=== PATIENT | female | born 1980 | race Caucasian/White ===

== ENCOUNTER 2016-11-11 21:21 | Emergency (ER) | payer MEDICARE, MEDICAID ==
[~2016-11-11] VITALS: Ht 154.9 cm; Wt 89.4 kg
[~2016-11-11 21:21] MED LIST: AMLO10TA2 PO; INSU100V13 SQ; INSU100V28 SQ; LOSA100T44 PO; LOVA10TA2 PO; LURA120T PO; TRAZ100T18 PO
[2016-11-11 21:22] VITALS: Ht 154.9 cm; Wt 89.4 kg
--- OUTSIDE RECORDS SUMMARY | 2016-11-11 21:25 | XMS REPORT | Continuity of Care Document ---
Author Author [facility] Organization [facility] Address Unknown Phone Unavailable Care Team Providers Care Manager Integrity Name Role Phone Jaylyn Young Primary Care Physician [phone] Source Comments Some departments are not documenting in the electronic medical record. If you do not see the information that you expected, contact Release of Information in the Health Information Management department at [phone] for further assistance in locating additional records.[facility] Active Allergies and Adverse Reactions Allergen Noted Date Severity Reactions Comments Azithromycin 03/26/2016 Low UNKNOWN Current Medications Not on file Active Problems Not on file Social History Tobacco Use Types Packs/Day Years Used Date Never Assessed Last Filed Vital Signs Vital Sign Reading Time Taken Blood Pressure 98/68 03/07/2016 1:18 PM CDT Pulse 90 03/07/2016 1:18 PM CDT Temperature 36.6 C (97.9 F) 03/07/2016 1:18 PM CDT Respiratory Rate 16 03/07/2016 1:18 PM CDT Height 1.575 m (5' 2") 03/07/2016 1:18 PM CDT Weight 82.01 kg (180 lb 12.8 oz) 03/07/2016 1:18 PM CDT Body Mass Index 33.06 03/07/2016 1:18 PM CDT Oxygen Saturation 98% 03/07/2016 1:18 PM CDT Plan of Care Health Maintenance Due Date Last Done Comments Physical (Comprehensive) 1987 Exam Pertussis Vaccine 1991 Tetanus Vaccine 1997 Dilated Eye Exam 1998 Foot Exam 1998 Microalbumin 1998 Pneumonia Vaccine (Dm) 1998 Cervical Cancer Screening 2001 Hba1c 02/21/2015 08/24/2014 Influenza Vaccine 04/12/2017 Results from Last 3 Months Not on file
--- OUTSIDE RECORDS SUMMARY | 2016-11-11 21:25 | XMS REPORT ---
Author Jaylyn Persaud [employer] Address Unknown Phone Unavailable Care Team Providers Care Oil Heater Installer Name Role Phone Jaylyn Young CP Unavailable Allergies, Adverse Reactions, Alerts Substance Reaction Event Type Azithromycin hives Drug Allergy phenergan tremors Non Drug Allergy Problems Problem Type Condition Code Onset Dates Condition Status Problem Insomnia, unspecified 780.52 Active Problem Other specified anemias 285.8 Active Problem Diabetes Mellitus Type 2, not stated as uncontrolled 250.00 Active Problem Other specified diabetes mellitus without complications E13.9 Active Problem Mixed hyperlipidemia E78.2 Active Problem Chronic kidney disease, stage 4 (severe) N18.4 Active Problem Anemia in chronic kidney disease 285.21 Active Problem Abdominal pain, unspecified site 789.00 Active Problem Panic disorder without agoraphobia 300.01 Active Problem Other disorder of menstruation and other abnormal bleeding from female genital tract 626.8 Active Assessment Insomnia, unspecified type G47.00 Active Problem Mixed hyperlipidemia 272.2 Active Problem Major depressive disorder, recurrent episode, moderate 296.32 Active Assessment RLS (restless legs syndrome) G25.81 Active Problem Generalized anxiety disorder 300.02 Active Assessment Tension headache G44.209 Active Problem UTI 599.0 Active Medications Medication Code System Code Instructions Start Date End Date Status Dosage ProAir HFA [facility] [address]-56 108 (90 Base) MCG/ACT Inhalation every 4 hrs Jun 14, 2015 2 puffs as needed NovoLog Flexpen [facility] [address]-50 100 UNIT/ML Subcutaneous two to three times a day Mar 16, 2015 5-10 units Zofran ODT [facility] [address]-13 4 MG Orally every 6 hours as needed for nausea Jul 30, 2013 as directed Trazodone HCl [facility] [address]-73 100 MG Orally Once a day at bedtime 2 tablets by mouth at bedtime for sleep Pen [place] 1/2" [facility] [address]-89 29G X 12MM subcut with insulin QID Mar 24, 2014 use as directed Vitamin D3 [facility] [address]67-[address]72 5000 UNIT/ML Orally once a week for 8 weeks Jul 28, 2015 Mar 16, 2016 1 capsule Flonase [facility] [address]-35 50 MCG/ACT Nasally Once a day prn Aug 23, 2015 1 spray in each nostril Amlodipine Besylate [facility] [address]-26 5 MG Orally Once a day 1 tablet Losartan Potassium [facility] [address]-84 25 MG Orally Once a day hs not defined Lantus [facility] [address]-40 100 UNIT/ML Subcutaneous Daily 42 units hs Folic Acid [facility] [address]-73 1 MG Orally Once a day Jul 28, 2015 Aug 13, 2016 1 tablet Ropinirole HCl [facility] [address]-48 0.5 MG Orally Once a day October 25, 2015 1 tablet 1 to 3 hours before bedtime Furosemide [facility] [address]-37 20 MG Orally Twice a day prn 1 tablet Procedures Procedure Coding System Code Date OFFICE VISIT, EST-LOW COMPLEXITY (15 MIN.) CPT-4 92465 Mar 15, 2016 FORMERLY [facility], [facility] visit Established Patient CPT-4 G0467 Mar 15, 2016 Vital Signs Date/Time: Mar 15, 2016 Temperature 98.4 F Height 63 in Weight 181.5 lbs Blood Pressure Diastolic 80 mm Hg Blood Pressure Systolic 122 mm Hg Cardiac Monitoring Heart Rate 88 /min BMI 32.15 Index Oximetry 97 % Respiratory Rate 18 /min Results No Known Results Summary Purpose [employer] Submission
--- OUTSIDE RECORDS SUMMARY | 2016-11-11 21:25 | XMS REPORT | Continuity of Care Document ---
Author Author [facility] Organization [facility] Address Unknown Phone Unavailable Care Team Providers Care Travel Sales Consultant Name Role Phone SURAJ GREER APRN Primary Care Physician [phone] Insurance Providers Payer Name Policy Number Subscriber Name Relationship [facility] [id number] Luis León 18 Self Advance Directives Directive Response Recorded Date/Time Ordered Resuscitation Status Full Code 01/25/14 4:35pm Problems No known problems or medical conditions. Medications Medication Dose Route Sig Days/Qty Instructions Order Date Discontinued Date Status Enalapril Maleate 15 Mg PO DAILY 09/08/11 10/07/11 Discontinued Amoxicillin Trihydrate 500 Mg PO THREE TIMES A DAY 09/08/11 Discontinued Oxycodone Hcl/Acetaminophen 1 Udtab PO EVERY 4-6 HOURS 09/08/1106/08 Discontinued Insulin Glargine 50 U SQ BEDTIME 09/08/11 Active Insulin Glulisine Unknown Dose SQ WITH MEALS SLIDING SCALE 09/08/11 Active Pravastatin Sodium 40 Mg PO DAILY 09/08/11 10/07/11 Discontinued Hydrocodone Bit/Acetaminophen 1 Udtab PO NEEDED 09/08/11 Discontinued Lurasidone Hcl 20 Mg PO DAILY 10/16/13 Active Leuprolide Acetate Unknown Dose SQ [id number] 10/16/13 Active Trazodone Hcl 200 Mg PO BEDTIME 60 Qty 01/25/14 Active Calcitriol 0.25 Mcg PO M W F 12 Qty 01/25/14 Active Norethindrone Acetate 2.5 Mg PO DAILY 01/25/14 Active [Sodium Bicarb] 10 G PO TWICE A DAY 01/25/14 Active Social History Social History Problem Response Recorded Date/Time Smoking Status Light Smoker 01/25/2014 3:45pm Chewing Tobacco Status No 01/25/2014 3:45pm Hx Substance Use No 01/25/2014 3:45pm Hx Alcohol Use Y 2-3X YR 01/25/2014 3:45pm Has the pt used tobacco in the last 12 months Yes 01/25/2014 3:45pm Query Response Start Date Stop Date Smoking Status Former smoker Hospital Discharge Instructions No hospital discharge instructions. Plan of Care No plan of care. Functional Status No functional status results. Allergies, Adverse Reactions, Alerts Allergen Type Severity Reaction Status Last Updated Azithromycin Allergy Mild URTICARIA Active 10/20/13 Immunizations Name Given Type Hx Influenza Vaccination Y MAY 2013 Historical Hx Pneumococcal Vaccination Y 2011 Historical Hx Influenza Vaccination Y MAY 2013 Historical Vital Signs Acute Vital Signs Vital Response Date/Time Temperature (Fahrenheit) 97.5 deg F (96.8 - 99.1) Temperature (Calculated Celsius) 36.91764 degrees C (36.0 - 37.3) Temperature Source Temporal Pulse Rate (adult) 90 bpm (60 - 100) Respiratory Rate 16 breaths/min (10 - 20) O2 Sat by Pulse Oximetry 96 % (90 - 100) Blood Pressure 134/86 mm Hg Blood Pressure Source Automatic Cuff Height 5 ft 1 in Weight 190 lb Body Mass Index 35.0 kg/m^2 Results Test Source Date Result Interp. Ref. Range Comments Absolute Reticulocyte Count July 19, 2013 5:22am 0.0240 T/MM3 L 0.0300-0.0900 COMMENT john Alanine Aminotransferase (ALT/SGPT) October 20, 2013 2:50pm 88 U/L H 9-52 Albumin January 12, 2014 1:56pm 2.5 G/DL L 3.5-5.0 Albumin/Globulin Ratio October 20, 2013 2:50pm 0.8 RATIO L 1.1-2.2 Alkaline Phosphatase October 20, 2013 2:50pm 189 U/L H 38-126 Amylase Level October 20, 2013 2:50pm 133 U/L H 30-110 Anion Gap January 12, 2014 1:56pm 5 MEQ/L N 5-15 Aspartate Amino Transf (AST/SGOT) October 20, 2013 2:50pm 228 U/L H 14-36 BUN/Creatinine Ratio January 12, 2014 1:56pm 11 RATIO N 6-26 Band Neutrophils # July 21, 2013 4:59am 0.1 T/MM3 - Band Neutrophils % July 21, 2013 4:59am 2.0 % N 0-6 Basophils # (Auto) January 07, 2014 11:21am 0.0 T/MM3 N 0-0.2 Basophils (%) (Auto) January 07, 2014 11:21am 0.4 % N 0-2 Blood Urea Nitrogen January 12, 2014 1:56pm 36.0 MG/DL H 7-17 C-Reactive Protein September 08, 2011 2:35pm 7.2 MG/L N 0-9 Calcium Level January 12, 2014 1:56pm 8.3 MG/DL L 8.4-10.2 Calculated Osmolality January 12, 2014 1:56pm 277 MOSM/KG N 261-280 Carbon Dioxide Level January 12, 2014 1:56pm 18 MEQ/L L 22-30 Chloride Level January 12, 2014 1:56pm 116 MEQ/L H 98-107 Cholesterol Level December 13, 2011 11:55am 295 MG/DL H 132-199 Cholesterol/HDL Ratio December 13, 2011 11:55am 5.5 RATIO H 0-4.0 Conjugated Bilirubin October 16, 2013 12:40pm 0.00 MG/DL N 0.00-0.30 Creatinine January 12, 2014 1:56pm 3.2 MG/DL H 0.7-1.2 Eosinophils # (Auto) January 07, 2014 11:21am 0.3 T/MM3 N 0-0.5 Eosinophils # (Manual) July 21, 2013 4:59am 0.3 T/MM3 N 0-0.5 Eosinophils % (Manual) July 21, 2013 4:59am 4.0 % N 0-4 Eosinophils (%) (Auto) January 07, 2014 11:21am 4.1 % H 0-4 Ferritin January 12, 2014 1:56pm 90.8 NG/ML N 6-137 Free Thyroxine July 19, 2013 5:22am 1.14 NG/DL N 0.78-2.19 COMMENT john Free Triiodothyronine July 19, 2013 5:22am 3.55 PG/ML N 2.77-5.27 COMMENT john Globulin October 20, 2013 2:50pm 2.9 G/DL N 2.4-3.6 Glucose Level January 12, 2014 1:56pm 111 MG/DL H 65-110 Hematocrit January 07, 2014 11:21am 27.6 % L 36-46 Hemoglobin January 07, 2014 11:21am 9.1 GM/DL L 12-16 Hemoglobin A1c July 18, 2013 11:19am 6.5 % N 6-7 <6.0 NON-DIABETIC RANGE6.0-7.0 ADA THERAPEUTIC RANGE >7.0 ACTION SUGGESTED Hepatitis A IgM Antibody August 15, 2011 1:15pm Negative - Hepatitis B Core IgM Antibody August 15, 2011 1:15pm Negative - Hepatitis B Surface Antigen August 15, 2011 1:15pm Negative - Hepatitis C Antibody August 15, 2011 1:15pm Negative - Human Chorionic Gonadotropin, Qual July 18, 2013 11:19am Negative - COMMENT john Immature Reticulocyte Fraction July 19, 2013 5:22am 11.6 % N 3.3- 14.5 COMMENT john Influenza Type A Antigen July 18, 2013 2:00pm Negative - Negative for Flu A protein antigen. Assay sensitivity isbetween 65-83%. A negative result does not exclude influenza virus infection. "Influenza FA" may be ordered if clinical presentation warrants confirmatory testing. Influenza Type B Antigen July 18, 2013 2:00pm Negative - Negative for Flu B protein antigen. Assay sensitivity isbetween 65-83%. A negative result does not exclude influenza virus infection. "Influenza FA" may be ordered if clinical presentation warrants confirmatory testing. Iron Level January 12, 2014 1:56pm 97 UG/DL N 37-170 LDL Cholesterol, Calculated December 13, 2011 11:55am 241 H 66-159 Lipase October 20, 2013 2:50pm 675 U/L H 23-300 Lymphocytes # (Auto) January 07, 2014 11:21am 1.6 T/MM3 N 1-4.8 Lymphocytes # (Manual) July 21, 2013 4:59am 2.5 T/MM3 N 1-4.8 Lymphocytes % (Manual) July 21, 2013 4:59am 38.0 % N 23-45 Lymphocytes (%) (Auto) January 07, 2014 11:21am 22.2 % L 23-45 Magnesium Level July 21, 2013 4:59am 2.1 MG/DL N 1.6-2.3 Mean Corpuscular Hemoglobin January 07, 2014 11:21am 33.3 UUG N 26-34 Mean Corpuscular Hemoglobin Concent January 07, 2014 11:21am 33.0 GM/DL N 31 -37 Mean Corpuscular Volume January 07, 2014 11:21am 101.1 UM3 H 80-100 Mean Platelet Volume January 07, 2014 11:21am 9.2 UM3 L 9.4-12.4 Monocytes # (Auto) January 07, 2014 11:21am 0.4 T/MM3 N 0-0.8 Monocytes # (Manual) July 21, 2013 4:59am 0.6 T/MM3 N 0-0.8 Monocytes % (Manual) July 21, 2013 4:59am 9.0 % N 0-9.0 Monocytes (%) (Auto) January 07, 2014 11:21am 5.5 % N 0-9.0 Neutrophils # (Auto) January 07, 2014 11:21am 4.7 T/MM3 N 1.8-7.7 Neutrophils # (Manual) July 21, 2013 4:59am 2.9 T/MM3 N 1.8-7.7 Neutrophils % (Manual) July 21, 2013 4:59am 45.0 % N 33-66 Neutrophils (%) (Auto) January 07, 2014 11:21am 67.5 % H 33-66 Parathyroid Hormone (Intact) January 07, 2014 11:21am 126.4 PG/ML H 7.5- 53.5 Percent Iron Saturation January 12, 2014 1:56pm 44 % N 9-55 Percent Reticulocyte Count July 19, 2013 5:22am 1.1 % N 0.6-1.7 COMMENT john Phosphorus Level January 12, 2014 1:56pm 4.7 MG/DL H 2.5-4.5 Platelet Count January 07, 2014 11:21am 294 T/MM3 N 130-400 Potassium Level January 12, 2014 1:56pm 4.5 MEQ/L N 3.6-5 Prealbumin July 18, 2013 11:19am 16.9 MG/DL L 17.6-36.0 COMMENT john RDW Standard Deviation January 07, 2014 11:21am 42.3 FL N 36.9-50.2 Rapid Plasma Reagin August 15, 2011 1:15pm Nonreactive - Red Blood Count January 07, 2014 11:21am 2.73 M/MM3 L 4.00-5.20 Reticulocyte Hgb Content (CHr) July 19, 2013 5:22am 30.3 PG L 30.8- 36.6 COMMENT john Sodium Level January 12, 2014 1:56pm 139 MEQ/L N 134-144 Stool Occult Blood July 19, 2013 7:30pm Negative - Has specimen been collected/obtained? Y Thyroid Stimulating Hormone (TSH) July 18, 2013 11:19am 4.87 MIU/L H 0.47-4.68 COMMENT john Total Bilirubin October 20, 2013 2:50pm 0.40 MG/DL N 0.20-1.30 Total Iron Binding Capacity January 12, 2014 1:56pm 218 UG/DL L 261-497 Total Protein October 20, 2013 2:50pm 5.3 G/DL L 6.3-8.2 Triglycerides Level December 13, 2011 11:55am 272 MG/DL H 35-135 Troponin I October 16, 2013 12:40pm < 0.012 ng/ml 0-0.12 Unconjugated Bilirubin October 16, 2013 12:40pm 0.10 MG/DL N 0.00-1.10 Urine Bacteria October 20, 2013 3:50pm Trace H - Has specimen been collected/obtained? Y Urine Bilirubin October 20, 2013 3:50pm Negative - Has specimen been collected/obtained? Y Urine Blood October 20, 2013 3:50pm 2+ H - Has specimen been collected/ obtained? Y Urine Collection Type October 20, 2013 3:50pm Cleancatch-midstream - Has specimen been collected/obtained? Y Urine Color October 20, 2013 3:50pm Yellow - Has specimen been collected/obtained? Y Urine Culture Indicated October 20, 2013 3:50pm Cult reflexed &setup - Has specimen been collected/obtained? Y Urine Glucose (UA) October 20, 2013 3:50pm 1+ H - Has specimen been collected/obtained? Y Urine Hyaline Casts July 18, 2013 2:20pm 1-3 /LPF - Has specimen been collected/obtained? Y Urine Ketones October 20, 2013 3:50pm Negative - Has specimen been collected/obtained? Y Urine Leukocyte Esterase October 20, 2013 3:50pm Negative - Has specimen been collected/obtained? Y Urine Microalbumin May 25, 2011 8:30am 73.8 MG/L H 0-17 Urine Mucus October 20, 2013 3:50pm Present - Has specimen been collected/obtained? Y Urine Nitrite October 20, 2013 3:50pm Negative - Has specimen been collected/obtained? Y Urine Protein October 20, 2013 3:50pm 3+ H - Has specimen been collected/ obtained? Y Urine RBC October 20, 2013 3:50pm 3-5 /HPF H - Has specimen been collected/obtained? Y Urine Random Microalbumin August 15, 2011 1:23pm Send out - Urine Specific [place] October 20, 2013 3:50pm 1.020 - Has specimen been collected/obtained? Y Urine Squamous Epithelial Cells October 20, 2013 3:50pm 20-50 - Has specimen been collected/obtained? Y Urine Turbidity October 20, 2013 3:50pm Clear - Has specimen been collected/obtained? Y Urine Urobilinogen October 20, 2013 3:50pm 0.2 EU/DL - Has specimen been collected/obtained? Y Urine WBC October 20, 2013 3:50pm 10-20 /HPF H - Has specimen been collected/obtained? Y Urine pH October 20, 2013 3:50pm 6.0 - Has specimen been collected/ obtained? Y VLDL Cholesterol December 13, 2011 11:55am 54.4 MG/DL H 0-28 White Blood Count January 07, 2014 11:21am 7.0 T/MM3 N 4.5-11.0 Chemistry Specimen Hemolysis January 12, 2014 1:56pm < 15 0-25 0-25: No Hemolysis.26-70: Slight Hemolysis - can falsely elevate K and Urine Protein. 71-285: Moderate Hemolysis - can falsely elevate K, Troponin I, CA 19-9, PTH, CSF GLucose, and Urine Protein, and can falsely decrease Phenytoin. 286-999: Gross Hemolysis - can falsely elevate K, Troponin I, CA 19-9, PTH, CSF Glucose, and Urine Protine, and can falsely decrease Phenytoin. Recommend specimen recollection. Herpes Simplex I&II IgM Antibody August 15, 2011 1:15pm Ref lab rpt scanned - --- 08/20/11 1727 ---HSVIGM previously reported as: SENT OUT Glucometer January 26, 2014 7:14am 140 mg/dL H 65-110 Lab Scanned Report January 12, 2014 8:06pm LAB TEST FORM REQUEST [id number] - HDL Cholesterol Direct December 13, 2011 11:55am 54 MG/DL N 40-60 HIV (1&2) Antibody Rapid August 15, 2011 1:15pm Negative - Turbidity January 12, 2014 1:56pm < 20 0-20 Reactive Lymphocytes % July 21, 2013 4:59am 2.0 % H 0-0 Glomerular Filtration Rate Calc January 12, 2014 1:56pm 17 - Reactive Lymphocytes # July 21, 2013 4:59am 0.1 T/MM3 H 0-0 Immature Granulocyte # (Auto) January 07, 2014 11:21am 0.02 T/MM3 N 0.00- 0.03 Immature Granulocyte % (Auto) January 07, 2014 11:21am 0.3 % N 0.0-0.5 Beta HCG, Quantitative August 09, 2011 1:13pm Not detected UIU/ML - NORMAL EXPECTED RANGE: NOT DETECTEDGESTATION 1-10 WEEKS: 45-256,380 11-15 WEEKS: 11,556-265,380 16-22 WEEKS: 27,[phone],954 23-40 WEEKS: 24,031-101,566 Icterus Index January 12, 2014 1:56pm < 2 0-7 Blood Culture Blood July 18, 2013 2:00pm NO GROWTH AFTER 5 DAYS Urine Culture Urine, Clean Catch-Midstream October 20, 2013 4:38pm Diphtheroid Bacillus Gram Stain Toe-Left Second October 07, 2011 5:29pm Procedures Procedure Status Date Provider(s) Removal of foreign body from eye completed 01/26/14 TATE IQBAL MD Encounters Encounter Location Date/Time Registered [facility] 01/12/14 1:44pm Registered [facility] 01/07/14 11:17am Registered [facility] 11/25/13 2:32pm
--- OUTSIDE RECORDS SUMMARY | 2016-11-11 21:26 | XMS REPORT ---
Author Author [facility] - Organization Unknown Address Unknown Phone Unavailable Allergies, Adverse Reactions, Alerts * Erythromycin Base causes Urticaria (hives). * No Latex Allergy. * No IV Contrast Allergy. Problems No relevant problems exist. Procedures No Procedures Documented. Medication Medication reconciliation has not been performed. Results LAB--BEDSIDE TESTING from 11/22/2012 1:33 PMPregnancy Screen, Urine NPT Negative LAB--CHEMISTRY from 11/22/2012 1:04 PMAnion Gap 5 (3-20 ) Albumin 2.5 g/dL L (3.5-4.8 g/dL) Alkaline Phosphatase 61 U/L (26-104 U/L) ALT (SGPT) 16 U/L (14-54 U/L) AST (SGOT) 19 U/L (15-41 U/L) Bilirubin Total 0.5 mg/dL (0.2-1.2 mg/dL) BUN 21 mg/dL H (4-20 mg/dL) Calcium 8.6 mg/dL (8.6-10.0 mg/dL) Chloride 109 mEq/L (99-109 mEq/L) CO2 22 mEq/L (22-32 mEq/L) Creatinine 1.16 mg/dL H (0.44-1.03 mg/dL) eGFR 54 A (>60- ) Globulin 3.6 g/dL (1.9-4.3 g/dL) Glucose 105 mg/dL H (70-100 mg/dL) Potassium 4.5 mEq/L (3.6-5.1 mEq/L) Sodium 136 mEq/L (136-144 mEq/L) Protein 6.1 g/dL (6.1-7.9 g/dL) Lipase 14 U/L (8-48 U/L) LAB--HEMATOLOGY from 11/22/2012 1:04 PMAbsolute Basophils 0.05 THOUS (0.00-0.20 THOUS) Absolute Eosinophils 0.23 THOUS (0.00-0.50 THOUS) Absolute Lymphocytes 1.77 THOUS (0.80-3.30 THOUS) Absolute Monocytes 0.37 THOUS (0.30-1.00 THOUS) Absolute Neutrophils 4.18 THOUS (1.90-7.00 THOUS) HCT 28.1 % L (37.0-47.0 %) HGB 9.6 g/dl L (12.0-16.0 g/dl) MCH 33.0 pg H (27.0-32.0 pg) MCHC 34.2 g/dL (32.0-36.0 g/dL) MCV 96.6 fL (82.0-99.0 fL) MPV 9.7 fL (9.4-12.4 fL) Platelet Count 299 K/uL (150-400 K/uL) RBC 2.91 M/uL L (4.00-5.20 M/uL) RDW 11.8 % (11.5-14.5 %) WBC 6.6 K/uL (4.8-10.8 K/uL) Basophils 1 % (0-2 %) Eosinophils 4 % (0-4 %) Immature Granulocytes 0.2 % (0.0-1.0 %) Lymphocytes 27 % (20-46 %) Monocytes 6 % (4-11 %) Nucleated RBC Automated 0.0 /100 WBC (0 /100 WBC) Neutrophils 63 % (51-75 %) LAB--URINE TESTS from 11/22/2012 12:53 PMAppearance Clear Bilirubin Negative (Negative ) Blood Trace A (Negative ) Color Lt Yellow Glucose Pos 1+ A (Negative ) Ketones, Urine Negative (Negative ) Leukocytes Esterase Negative (Negative ) Nitrites Negative (Negative ) pH, Urine 5.0 (5.0-8.0 ) Protein Pos 3+ A (Negative ) Specific [place] 1.016 (1.003-1.030 ) Collection Type: Clean Catch Urobilinogen Negative mg/dL (-<1.0 mg/dL) Bacteria Moderate A Epithelial Cells 10-20 /HPF Hyaline Casts 1-3 /LPF (0-3 /LPF) Mucus Present RBC 5-10 /HPF A (0-2 /HPF) WBC 2-5 /HPF (0-4 /HPF) LAB--URINE TESTS from 11/22/2012 3:13 PMAppearance Clear Bilirubin Negative (Negative ) Blood Pos 1+ A (Negative ) Color Lt Yellow Glucose Negative (Negative ) Ketones, Urine Negative (Negative ) Leukocytes Esterase Negative (Negative ) Nitrites Negative (Negative ) pH, Urine 5.0 (5.0-8.0 ) Protein Pos 3+ A (Negative ) Specific [place] 1.031 H (1.003-1.030 ) Collection Type: Catheter Urobilinogen Negative mg/dL (-<1.0 mg/dL) Bacteria Occasional A Crystals Amorphous Epithelial Cells 10-20 /HPF Hyaline Casts 1-3 /LPF (0-3 /LPF) Mucus Present RBC 2-5 /HPF (0-2 /HPF) WBC 0-2 /HPF (0-4 /HPF)
--- OUTSIDE RECORDS SUMMARY | 2016-11-11 21:26 | XMS REPORT | Continuity of Care Document ---
Author Author [facility] Organization [facility] Address Unknown Phone Unavailable Care Team Providers Care Film Replacement Orderer Name Role Phone SURAJ GREER APRN Primary Care Physician [phone] Insurance Providers Payer Name Policy Number Subscriber Name Relationship [facility] [id number] Luis León 18 Self Advance Directives Directive Response Recorded Date/Time Ordered Resuscitation Status Full Code 01/25/14 4:35pm Problems Medical Problems Problem Onset Date Status Bilateral flank pain Unknown Active Vomiting Unknown Active Medications Medication Dose Route Sig Days/Qty Instructions [...] Hcl 20 Mg PO DAILY 10/16/13 Active Trazodone Hcl 200 Mg PO BEDTIME 60 Qty 01/25/14 Active Guaifenesin/Dextromethorphan DAILY 03/29/14 Active Furosemide 1 Tab PO TWICE A DAY 03/29/14 Active Promethazine HCl 1 Supp RC Every 8 Hours PRN NAUSEA &/OR VOMITING 12 Qty 03/29/14 Active Social History Social History Problem Response Recorded Date/Time Smoking Status Light Smoker 01/25/2014 3:45pm Chewing Tobacco Status No 01/25/2014 3:45pm Hx Substance Use No 03/29/2014 12:14am Hx Alcohol Use Y 2-3X YR 03/29/2014 12:14am Has the pt used tobacco in the last 12 months Yes 01/25/2014 3:45pm Query Response Start Date Stop Date Smoking Status Former smoker Hospital Discharge Instructions No hospital discharge instructions. Plan of Care No plan of care. Functional Status Query Response Date Recorded Physical Hygiene Self March 29, 2014 12:14am Disabilities Visual March 29, 2014 12:14am Devices Used Glasses March 29, 2014 12:14am Dressing Self March 29, 2014 12:14am Ambulation Self March 29, 2014 12:14am Diet Self March 29, 2014 12:14am Mental Status Alert March 29, 2014 3:04am Disabilities Visual March 29, 2014 12:14am Devices Used Glasses March 29, 2014 12:14am Physical Hygiene Self March 29, 2014 12:14am Dressing Self March 29, 2014 12:14am Ambulation Self March 29, 2014 12:14am Diet Self March 29, 2014 12:14am Allergies, Adverse Reactions, Alerts Allergen Type Severity Reaction Status Last Updated Azithromycin Allergy Mild URTICARIA Active 03/28/14 Immunizations Name Given Type Hx Influenza Vaccination Y MAY 2013 Historical Hx Pneumococcal Vaccination Y 2011 Historical Hx Tetanus, Diptheria, Pertussis Yes Historical Hx Influenza Vaccination Y MAY 2013 Historical Hx Tetanus, Diptheria, Pertussis Yes Historical Vital Signs Acute Vital Signs Vital Response Date/Time Temperature (Fahrenheit) 97.8 deg F (96.8 - 99.1) Temperature (Calculated Celsius) 36.13837 degrees C (36.0 - 37.3) Pulse Rate (adult) 95 bpm (60 - 100) Respiratory Rate 20 breaths/min (10 - 20) O2 Sat by Pulse Oximetry 97 % (90 - 100) Blood Pressure 144/75 mm Hg Height 5 ft 1 in Weight 190 lb Body Mass Index 35.0 kg/m^2 Results Test Source Date Result Interp. Ref. Range Comments Absolute Reticulocyte Count July 19, 2013 5:22am 0.0240 T/MM3 L 0.0300-0.0900 COMMENT john Acetone Level March 28, 2014 11:45pm Negative - Alanine Aminotransferase (ALT/SGPT) March 28, 2014 11:45pm 55 U/L H 9- 52 Albumin March 28, 2014 11:45pm 2.8 G/DL L 3.5-5.0 Albumin/Globulin Ratio March 28, 2014 11:45pm 1.0 RATIO L 1.1-2.2 Alkaline Phosphatase March 28, 2014 11:45pm 200 U/L H 38-126 Amylase Level October 20, 2013 2:50pm 133 U/L H 30-110 Anion Gap March 28, 2014 11:45pm 8 MEQ/L N 5-15 Aspartate Amino Transf (AST/SGOT) March 28, 2014 11:45pm 95 U/L H 14- 36 BUN/Creatinine Ratio March 28, 2014 11:45pm 9 RATIO N 6-26 Band Neutrophils # July 21, 2013 4:59am 0.1 T/MM3 - Band Neutrophils % July 21, 2013 4:59am 2.0 % N 0-6 Basophils # (Auto) March 28, 2014 11:45pm 0.0 T/MM3 N 0-0.2 Basophils (%) (Auto) March 28, 2014 11:45pm 0.5 % N 0-2 Blood Urea Nitrogen March 28, 2014 11:45pm 39.0 MG/DL H 7-17 C-Reactive Protein September 08, 2011 2:35pm 7.2 MG/L N 0-9 Calcium Level March 28, 2014 11:45pm 8.2 MG/DL L 8.4-10.2 Calculated Osmolality March 28, 2014 11:45pm 279 MOSM/KG N 261-280 Carbon Dioxide Level March 28, 2014 11:45pm 22 MEQ/L N 22-30 Chloride Level March 28, 2014 11:45pm 111 MEQ/L H 98-107 Cholesterol Level December 13, 2011 11:55am 295 MG/DL H 132-199 Cholesterol/HDL Ratio December 13, 2011 11:55am 5.5 RATIO H 0-4.0 Conjugated Bilirubin October 16, 2013 12:40pm 0.00 MG/DL N 0.00-0.30 Creatinine March 28, 2014 11:45pm 4.2 MG/DL H 0.7-1.2 Eosinophils # (Auto) March 28, 2014 11:45pm 0.3 T/MM3 N 0-0.5 Eosinophils # (Manual) July 21, 2013 4:59am 0.3 T/MM3 N 0-0.5 Eosinophils % (Manual) July 21, 2013 4:59am 4.0 % N 0-4 Eosinophils (%) (Auto) March 28, 2014 11:45pm 3.5 % N 0-4 Ferritin January 12, 2014 1:56pm 90.8 NG/ML N 6-137 Free Thyroxine July 19, 2013 5:22am 1.14 NG/DL N 0.78-2.19 COMMENT john Free Triiodothyronine July 19, 2013 5:22am 3.55 PG/ML N 2.77-5.27 COMMENT john Globulin March 28, 2014 11:45pm 2.9 G/DL N 2.4-3.6 Glucose Level March 28, 2014 11:45pm 72 MG/DL N 65-110 Hematocrit March 28, 2014 11:45pm 24.5 % L 36-46 Hemoglobin March 28, 2014 11:45pm 8.0 GM/DL L 12-16 Hemoglobin A1c July 18, [...] 13, 2011 11:55am 241 H 66-159 Lipase March 28, 2014 11:45pm 62 U/L N 23-300 Lymphocytes # (Auto) March 28, 2014 11:45pm 2.1 T/MM3 N 1-4.8 Lymphocytes # (Manual) July 21, 2013 4:59am 2.5 T/MM3 N 1-4.8 Lymphocytes % (Manual) July 21, 2013 4:59am 38.0 % N 23-45 Lymphocytes (%) (Auto) March 28, 2014 11:45pm 27.1 % N 23-45 Magnesium Level July 21, 2013 4:59am 2.1 MG/DL N 1.6-2.3 Mean Corpuscular Hemoglobin March 28, 2014 11:45pm 33.8 UUG N 26-34 Mean Corpuscular Hemoglobin Concent March 28, 2014 11:45pm 32.7 GM/DL N 31-37 Mean Corpuscular Volume March 28, 2014 11:45pm 103.4 UM3 H 80-100 Mean Platelet Volume March 28, 2014 11:45pm 9.6 UM3 N 9.4-12.4 Monocytes # (Auto) March 28, 2014 11:45pm 0.5 T/MM3 N 0-0.8 Monocytes # (Manual) July 21, 2013 4:59am 0.6 T/MM3 N 0-0.8 Monocytes % (Manual) July 21, 2013 4:59am 9.0 % N 0-9.0 Monocytes (%) (Auto) March 28, 2014 11:45pm 6.8 % N 0-9.0 Neutrophils # (Auto) March 28, 2014 11:45pm 4.9 T/MM3 N 1.8-7.7 Neutrophils # (Manual) July 21, 2013 4:59am 2.9 T/MM3 N 1.8-7.7 Neutrophils % (Manual) July 21, 2013 4:59am 45.0 % N 33-66 Neutrophils (%) (Auto) March 28, 2014 11:45pm 62.0 % N 33-66 Parathyroid Hormone (Intact) January 07, 2014 11:21am 126.4 PG/ML H 7.5- 53.5 Percent Iron Saturation January 12, 2014 1:56pm 44 % N 9-55 Percent Reticulocyte Count July 19, 2013 5:22am 1.1 % N 0.6-1.7 COMMENT john Phosphorus Level January 12, 2014 1:56pm 4.7 MG/DL H 2.5-4.5 Platelet Count March 28, 2014 11:45pm 258 T/MM3 N 130-400 Potassium Level March 28, 2014 11:45pm 4.9 MEQ/L N 3.6-5 Prealbumin July 18, 2013 11:19am 16.9 MG/DL L 17.6-36.0 COMMENT john RDW Standard Deviation March 28, 2014 11:45pm 42.3 FL N 36.9-50.2 Rapid Plasma Reagin August 15, 2011 1:15pm Nonreactive - Red Blood Count March 28, 2014 11:45pm 2.37 M/MM3 L 4.00-5.20 Reticulocyte Hgb Content (CHr) July 19, 2013 5:22am 30.3 PG L 30.8- 36.6 COMMENT john Sodium Level March 28, 2014 11:45pm 141 MEQ/L N 134-144 Stool Occult Blood July 19, 2013 7:30pm Negative - Has specimen been collected/obtained? Y Thyroid Stimulating Hormone (TSH) July 18, 2013 11:19am 4.87 MIU/L H 0.47-4.68 COMMENT john Total Bilirubin March 28, 2014 11:45pm 0.50 MG/DL N 0.20-1.30 Total Iron Binding Capacity January 12, 2014 1:56pm 218 UG/DL L 261-497 Total Protein March 28, 2014 11:45pm 5.7 G/DL L 6.3-8.2 Triglycerides Level December 13, 2011 11:55am 272 MG/DL H 35-135 Troponin I March 28, 2014 11:45pm 0.028 ng/ml N 0-0.12 Unconjugated Bilirubin October 16, 2013 12:40pm 0.10 MG/DL N 0.00-1.10 Urine Bacteria March 29, 2014 12:05am None seen - Has specimen been collected/obtained? Y Urine Bilirubin March 29, 2014 12:05am Negative - Has specimen been collected/obtained? Y Urine Blood March 29, 2014 12:05am 2+ H - Has specimen been collected/ obtained? Y Urine Collection Type March 29, 2014 12:05am Voided-not cc-midstr - Has specimen been collected/obtained? Y Urine Color March 29, 2014 12:05am Yellow - Has specimen been collected/obtained? Y Urine Culture Indicated October 20, 2013 3:50pm Cult reflexed &setup - Has specimen been collected/obtained? Y Urine Glucose (UA) March 29, 2014 12:05am 1+ H - Has specimen been collected/obtained? Y Urine Hyaline Casts July 18, 2013 2:20pm 1-3 /LPF - Has specimen been collected/obtained? Y Urine Ketones March 29, 2014 12:05am Negative - Has specimen been collected/obtained? Y Urine Leukocyte Esterase March 29, 2014 12:05am Negative - Has specimen been collected/obtained? Y Urine Microalbumin May 25, 2011 8:30am 73.8 MG/L H 0-17 Urine Mucus October 20, 2013 3:50pm Present - Has specimen been collected/obtained? Y Urine Nitrite March 29, 2014 12:05am Negative - Has specimen been collected/obtained? Y Urine Protein March 29, 2014 12:05am 3+ H - Has specimen been collected/obtained? Y Urine RBC March 29, 2014 12:05am 1-3 /HPF - Has specimen been collected/obtained? Y Urine Random Microalbumin August 15, 2011 1:23pm Send out - Urine Specific [place] March 29, 2014 12:05am 1.020 - Has specimen been collected/obtained? Y Urine Squamous Epithelial Cells October 20, 2013 3:50pm 20-50 - Has specimen been collected/obtained? Y Urine Turbidity March 29, 2014 12:05am Clear - Has specimen been collected/obtained? Y Urine Urobilinogen March 29, 2014 12:05am 1.0 EU/DL - Has specimen been collected/obtained? Y Urine WBC March 29, 2014 12:05am None seen /HPF - Has specimen been collected/obtained? Y Urine pH March 29, 2014 12:05am 7.0 - Has specimen been collected/ obtained? Y VLDL Cholesterol December 13, 2011 11:55am 54.4 MG/DL H 0-28 White Blood Count March 28, 2014 11:45pm 7.9 T/MM3 N 4.5-11.0 Chemistry Specimen Hemolysis March 28, 2014 11:45pm < 15 0-25 0-25: No Hemolysis.26-70: Slight [...] 12, 2014 8:06pm LAB TEST FORM REQUEST [id number] - HDL Cholesterol Direct December 13, 2011 11:55am 54 MG/DL N 40-60 HIV (1&2) Antibody Rapid August 15, 2011 1:15pm Negative - Turbidity March 28, 2014 11:45pm < 20 0-20 Reactive Lymphocytes % July 21, 2013 4:59am 2.0 % H 0-0 Glomerular Filtration Rate Calc March 28, 2014 11:45pm 12 - Reactive Lymphocytes # July 21, 2013 4:59am 0.1 T/MM3 H 0-0 Immature Granulocyte # (Auto) March 28, 2014 11:45pm 0.01 T/MM3 N 0.00- 0.03 Immature Granulocyte % (Auto) March 28, 2014 11:45pm 0.1 % N 0.0-0.5 Beta HCG, Quantitative August 09, 2011 1:13pm Not detected UIU/ML - NORMAL EXPECTED RANGE: NOT DETECTEDGESTATION 1-10 WEEKS: 45-256,380 11-15 WEEKS: 11,556-265,380 16-22 WEEKS: 27,023-111,954 23-40 WEEKS: 24,031-101,566 Icterus Index March 28, 2014 11:45pm < 2 0-7 Blood Culture Blood July 18, 2013 2:00pm NO GROWTH AFTER 5 DAYS Urine Culture Urine, Clean Catch-Midstream October 20, 2013 4:38pm Diphtheroid Bacillus Gram Stain Toe-Left Second October 07, 2011 5:29pm Procedures Procedure Status Date Provider(s) REMOVAL OF LENS MATERIAL completed 01/26/14 TATE IQBAL MD Encounters Encounter Location Date/Time Departed Emergency Room [facility] 03/28/14 10:39pm Registered Clinic [facility] 01/12/14 1:44pm Registered Clinic [facility] 01/07/14 11:17am Recent Diagnosis
--- OUTSIDE RECORDS SUMMARY | 2016-11-11 21:26 | XMS REPORT ---
Author Author Martha Jamil [facility] eClinicalWorks Address Unknown Phone Unavailable Care Team Providers Care Returned Goods Sorter Name Role Phone Martha Jamil CP Unavailable Allergies, Adverse Reactions, Alerts Substance Reaction Event Type Azithromycin hives Drug Allergy Problems Problem Type Condition ICD-9 Code Onset Dates Condition Status Problem Major depressive disorder, recurrent episode, moderate 296.32 Active Problem UTI 599.0 Active Problem Generalized anxiety disorder 300.02 Active Problem Other disorder of menstruation and other abnormal bleeding from female genital tract 626.8 Active Problem Anemia in chronic kidney disease 285.21 Active Problem Panic disorder without agoraphobia 300.01 Active Problem Diabetes Mellitus Type 2, not stated as uncontrolled 250.00 Active Problem Insomnia, unspecified 780.52 Active Problem Abdominal pain, unspecified site 789.00 Active Problem Other specified anemias 285.8 Active Assessment Insomnia, unspecified 780.52 Active Assessment Major depressive disorder, recurrent episode, moderate 296.32 Active Assessment Generalized anxiety disorder 300.02 Active Assessment Panic disorder without agoraphobia 300.01 Active Problem Mixed hyperlipidemia 272.2 Active Medications Medication Code System Code Instructions Start Date End Date Status Dosage Irbesartan [facility] [address]-13 75 MG Orally Once a day 1 tablet Furosemide [facility] [address]-77 20 MG Orally Twice a day 1 tablet Pen [place] 1/2" [facility] [address]-28 29G X 12MM subcut with insulin QID Mar 24, 2014 use as directed Humalog KwikPen [facility] [address]-28 100 UNIT/ML Subcutaneous 2-3 times a day Jun 08, 2014 5-10 units Latuda [facility] [address]-63 40 MG Orally Once a day after supper and 1/2 tablet extra per day as needed for increased anxiety Sep 22, 2013 1/2 tablet Trazodone HCl [facility] [address]-10 100 Milligram Orally Once a day at bedtime 2 tablets by mouth at bedtime for sleep Lantus [facility] [address]-64 100 UNIT/ML Subcutaneous Daily 45 units hs Procedures Procedure Coding System Code Date OFFICE VISIT, EST-MOD. COMPLEXITY (25 MIN) CPT-4 19308 November 02, 2014 Vital Signs Date/Time: November 02, 2014 Height 63 in Weight 177 lbs Temperature 98.7 F Blood Pressure Diastolic 92 mm Hg Blood Pressure Systolic 148 mm Hg Cardiac Monitoring Heart Rate 76 /min BMI 31.35 Index Respiratory Rate 28 /min Results No Known Results Summary Purpose eClinicalWorks Submission
--- OUTSIDE RECORDS SUMMARY | 2016-11-11 21:26 | XMS REPORT ---
Author Author Trinh Cline eClinical[employer] Address Unknown Phone Unavailable Care Team Providers Care Food Expeditor Name Role Phone Trinh Cline CP Unavailable Allergies, Adverse Reactions, Alerts Substance Reaction Event Type Azithromycin hives Drug Allergy Problems Problem Type Condition ICD-9 Code Onset Dates Condition Status Problem Major depressive disorder, recurrent episode, moderate 296.32 Active Problem UTI 599.0 Active Problem Generalized anxiety disorder 300.02 Active Assessment URI 460 Active Problem Mixed hyperlipidemia 272.2 Active Problem Other disorder of menstruation and other abnormal bleeding from female genital tract 626.8 Active Problem Anemia in chronic kidney disease 285.21 Active Problem Panic disorder without agoraphobia 300.01 Active Problem Diabetes Mellitus Type 2, not stated as uncontrolled 250.00 Active Problem Insomnia, unspecified 780.52 Active Problem Abdominal pain, unspecified site 789.00 Active Problem Other specified anemias 285.8 Active Medications Medication Code System Code Instructions Start Date End Date Status Dosage Zofran ODT [facility] [address]-40 4 MG Orally every 6 hours as needed for nausea Jul 30, 2013 Active as directed Procrit [facility] [address]-93 91200 UNIT/ML Injection once weekly Apr 28, 2014 Active as directed Lantus [facility] [address]-61 100 UNIT/ML Subcutaneous Daily Active 45 units hs Diflucan [facility] [address]-56 150 MG Orally Once a day Jul 14, 2014 Active 1 tablet Ranitidine HCl [facility] [address]-61 300 MG Orally once a day PRN January 06, 2013 Active as directed Pen [place] 1/2" [facility] [address] 29G X 12MM subcut with insulin QID Mar 24, 2014 Active use as directed Latuda [facility] [address]-43 40 MG Orally Once a day after supper and 1/2 tablet extra per day as needed for increased anxiety Sep 22, 2013 Active 1 /2 tablet Humalog KwikPen [facility] [address]-85 100 UNIT/ML Subcutaneous 2-3 times a day Jun 08, 2014 Active 5-10 units Tri-Sprintec [facility] [address]-82 0.18/0.215/0.25 MG-35 MCG Orally Once a day Active 1 tablet Furosemide [facility] [address]-33 20 MG Orally Twice a day Active 1 tablet Irbesartan [facility] [address]-95 75 MG Orally Once a day Active 1 tablet Lovastatin [facility] [address]-44 20 MG Orally Once a day Sep 16, 2012 Active 1 tablet with a meal Levalbuterol HCl [facility] [address]-07 1.25 MG/3ML Inhalation Three times a day Jul 28, 2013 Active 3 ml Trazodone HCl [facility] [address]-16 100 Milligram Orally Once a day Active 2 tablets by mouth at bedtime for sleep Procedures Procedure Coding System Code Date OFFICE VISIT, EST-LOW COMPLEXITY (15 MIN.) CPT-4 33784 Aug 10, 2014 INHALATION TREATMENT. CPT-4 16407 Aug 10, 2014 Vital Signs Date/Time: Aug 10, 2014 Height 63 inches Weight 182.8 lbs Temperature 99.1 F Blood Pressure Diastolic 82 mm Hg Blood Pressure Systolic 164 mm Hg Cardiac Monitoring Heart Rate 96 Beats per Minute BMI 32.38 Index Respiratory Rate 16 per Minute Results No Known Results Summary Purpose eClinicalWorks Submission
--- OUTSIDE RECORDS SUMMARY | 2016-11-11 21:26 | XMS REPORT ---
Author Jaylyn Persaud eClinicalWorks Address Unknown Phone Unavailable Care Team Providers Care Bisque Placer Name Role Phone Jaylyn Young Unavailable Allergies No Known Allergies Problems Problem Type Condition Code Onset Dates Condition Status Problem Major [...] Problem Other specified anemias 285.8 Active Assessment Hyperkalemia E87.5 Active Assessment Other specified anemias 285.8 Active Problem Mixed hyperlipidemia 272.2 Active Medications Medication Code System Code Instructions Start Date End Date Status Dosage Trazodone HCl [facility] [address]-46 100 Milligram Orally Once a day at bedtime 2 tablets by mouth at bedtime for sleep Amlodipine Besylate [facility] [address]-73 5 MG Orally Once a day 1 tablet Zofran ODT [facility] [address]-30 4 MG Orally every 6 hours as needed for nausea Jul 30, 2013 as directed Lantus [facility] [address]-63 100 UNIT/ML Subcutaneous Daily 45 units hs ProAir HFA [facility] [address]-18 108 (90 Base) MCG/ACT Inhalation every 4 hrs Jun 14, 2015 2 puffs as needed Pen [place] 1/2" [facility] [address]-21 29G X 12MM subcut with insulin QID Mar 24, 2014 use as directed Latuda [facility] [address]-72 40 MG Orally Once a day after supper and 1/2 tablet extra per day as needed for increased anxiety Sep 22, 2013 1/2 tablet NovoLog Flexpen [facility] [address]-24 100 UNIT/ML Subcutaneous two to three times a day Mar 16, 2015 5-10 units Losartan Potassium [facility] [address]-54 25 MG Orally Once a day hs not defined Furosemide [facility] [address]-62 20 MG Orally Twice a day 1 tablet Procedures Procedure Coding System Code Date COMPREHENSIVE METABOLIC PANEL CPT-4 27385 Jul 01, 2015 IH CMP CPT-4 78018 Jul 01, 2015 Results Name Result Date Reference Range Unit Abnormality Flag In House CMP Summary Purpose eClinicalWorks Submission
--- OUTSIDE RECORDS SUMMARY | 2016-11-11 21:26 | XMS REPORT | Referral Summary ---
Author Author [facility] Organization [facility] Address Unknown Phone Unavailable Care Team Providers Care Admitting Representative Name Role Phone Jaylyn Young Primary Care Physician [phone] Encounter [facility] [id number] Date(s): 04/30/15 - 05/03/15 [facility] [address] [place] [address] Discharge Diagnosis: Pneumonia Final: UNSPECIFIED SEPTICEMIA Final: PNEUMONIA, ORGANISM UNSPECIFIED Final: ACUTE RESPIRATORY FAILURE Final: End stage renal disease Final: Hypertensive chronic kidney disease, unspecified, with chronic kidney disease stage V or end stage renal disease Final: UNSPECIFIED PLEURAL EFFUSION Final: Severe sepsis Final: Anemia in chronic kidney disease Final: Diabetes mellitus with renal manifestations, type I [juvenile type], not stated as uncontrolled Final: OTHER AND UNSPECIFIED HYPERLIPIDEMIA Final: Asthma, unspecified Discharge Diagnosis: ESRD on dialysis Discharge Disposition: 01-Home or Self Care Attending Physician: Ovidio Etienne MD Admitting Physician: Kiran Carroll MD Vital Signs Most recent to 1 oldest [Reference Range]: Temperature Oral 36.7 degC [35.8-37.3 degC] (05/03/15 4:29 AM) Temperature Rectal 38.1 degC [36.3-37.8 degC] *HI* (04/30/15 2:49 AM) Peripheral Pulse 102 bpm Rate [60-100 bpm] *HI* (05/03/15 8:00 AM) Heart Rate Monitored 98 bpm [60-100 bpm] (05/03/15 12:45 PM) Respiratory Rate 20 br/min [14-20 br/min] (05/03/15 12:45 PM) Blood Pressure 159/91 mmHg [90-140/60-90 mmHg] *HI* (05/03/15 8:00 AM) Mean Arterial 118 mmHg Pressure, Cuff (05/01/15 4:00 PM) Mean Arterial 16 mmHg Pressure, Invasive 2 (04/30/15 4:57 PM) Pulse Rate [60-100 100 bpm bpm] (05/02/15 8:26 PM) SpO2 99 % (05/03/15 12:46 PM) Problem List Condition Effective Dates Status Health Status Informant Acute Active pain(Confirmed) Acute Active sinusitis(Confirmed) Anemia(Confirmed) Active Asthma(Confirmed) Active Dialysis Active patient patient(Confirmed) Impaired gas Active exchange(Confirmed)1 Bone 2011 Active infection(Confirmed) Bone 2010 Active infection(Confirmed) Knowledge Active deficit(Confirmed)2 Pelvic pain in Active female(Confirmed) Pneumonia(Confirmed) Active Renal Active failure(Confirmed) Tobacco Active patient user(Confirmed) Diabetes mellitus Active type 1 (disorder)(Confirmed ) 1Problem added automatically by system based on initiation of Impaired Gas Exchange Plan of Care 2Problem added automatically by system based on initiation of Knowledge Deficit Plan of Care Allergies, Adverse Reactions, Alerts Substance Reaction Severity Status azithromycin Active erythromycin Urticaria (hives) Active Medications acetaminophen 325 mg oral tablet 650 mg 2 tabs, Oral, q4hr, Other (See Comment), 0 Refill(s) Start Date: 05/02/15 Status: Ordered albuterol 2.5 mg/3 mL (0.083%) inhalation solution 2.5 mg 3 mL, Inhalation, q4hr, as needed for wheezing, # 60 Each, 0 Refill(s) Start Date: 04/30/15 Status: Ordered albuterol CFC free 90 mcg/inh inhalation aerosol 2 puffs, Inhalation, QID, as needed for wheezing, # 18 g, 2 Refill(s), Pharmacy : [id number] Start Date: 11/25/14 Status: Ordered Epogen 10,000 units/mL injectable solution 10,000 units 1 mL, SubCutaneous, MWF, 0 Refill(s) Start Date: 05/02/15 Status: Ordered HumaLOG KwikPen 10 units, SubCutaneous, TIDAC, 5 to 10 units, 0 Refill(s) Start Date: 11/04/14 Status: Ordered Lantus 100 units/mL subcutaneous solution 50 unit, SubCutaneous, Bedtime (once a day), 0 Refill(s) Start Date: 03/05/14 Status: Ordered Latuda 20 mg oral tablet 20 mg 1 tabs, Oral, Bedtime (once a day), # 30 tabs, 0 Refill(s) Start Date: 04/22/15 Status: Ordered losartan 100 mg oral tablet 100 mg 1 tabs, Oral, Daily, # 30 tabs, 0 Refill(s) Start Date: 04/30/15 Status: Ordered MiraLax 17 g 1 packets, Oral, Daily, Constipation, 0 Refill(s) Start Date: 05/02/15 Status: Ordered promethazine-codeine 6.25 mg-10 mg/5 mL oral syrup 5 mL, Oral, q6hr, as needed for cough, 0 Refill(s) Start Date: 04/30/15 Status: Ordered traZODone 100 mg oral tablet 200 mg 2 tabs, Oral, Bedtime (once a day), # 270 tabs, 0 Refill(s) Start Date: 04/30/15 Status: Ordered Results Hematology Most recent to 1 oldest [Reference Range]: WBC [4.8-10.8 8.1 10*3/uL 10*3/uL] (05/02/15 6:19 AM) RBC [4.00-5.20] 3.23 *LOW* (05/02/15 6:19 AM) Hgb [12.0-16.0 10.6 gm/dL gm/dL] *LOW* (05/02/15 6:19 AM) Hct [37.0-47.0 %] 34.0 % *LOW* (05/02/15 6:19 AM) MCV [82.0-99.0 fL] 105.3 fL *HI* (05/02/15 6:19 AM) MCH [27.0-32.0 pg] 32.8 pg *HI* (05/02/15 6:19 AM) MCHC [32.0-36.0 31.2 gm/dL gm/dL] *LOW* (05/02/15 6:19 AM) RDW [11.5-14.5 %] 13.2 % (05/02/15 6:19 AM) Platelet [150-400 249 10*3/uL 10*3/uL] (05/02/15 6:19 AM) MPV [9.4-12.4 fL] 10.0 fL (05/02/15 6:19 AM) Immature 0.3 % Granulocytes (05/01/15 4:55 AM) [0.0-1.0 %] Neutrophils [51-75 75 % %] (05/01/15 4:55 AM) Band Man [0-8 %] 3 % (04/30/15 5:54 AM) Lymphocytes [20-46 15 % %] *LOW* (05/01/15 4:55 AM) Monocytes [4-11 %] 10 % (05/01/15 4:55 AM) Eosinophils [0-4 %] 0 % (05/01/15 4:55 AM) Basophils [0-2 %] 0 % (05/01/15 4:55 AM) Neutro Absolute 7.80 10*3 [1.90-7.00 10*3] *HI* (05/01/15 4:55 AM) Lymph Absolute 1.56 10*3 [0.80-3.30 10*3] (05/01/15 4:55 AM) [place] Absolute 1.01 10*3 [0.30-1.00 10*3] *HI* (05/01/15 4:55 AM) Eos Absolute 0.03 10*3 [0.00-0.50 10*3] (05/01/15 4:55 AM) Baso Absolute 0.03 10*3 [0.00-0.20 10*3] (05/01/15 4:55 AM) Macrocyte Present *ABN* (04/30/15 5:54 AM) Nucleated RBC 0.0 /100 WBC Automated [0 /100 (05/01/15 4:55 AM) WBC] Differential Reviewed (04/30/15 5:54 AM) Chemistry Most recent to 1 oldest [Reference Range]: Sodium Lvl [136-144 136 mEq/L mEq/L] (05/02/15 6:19 AM) Potassium Lvl 4.7 mEq/L [3.6-5.1 mEq/L] (05/02/15 6:19 AM) Chloride [99-109 103 mEq/L mEq/L] (05/02/15 6:19 AM) CO2 [22-32 mEq/L] 21 mEq/L *LOW* (05/02/15 6:19 AM) AGAP [3-20] 12 (05/02/15 6:19 AM) BUN [4-20 mg/dL] 45 mg/dL *HI* (05/02/15 6:19 AM) Glucose Lvl [70-100 146 mg/dL mg/dL] *HI* (05/02/15 6:19 AM) Creatinine Lvl 8.94 mg/dL [0.44-1.03 mg/dL] *HI* (05/02/15 6:19 AM) eGFR [>60] 5 1 *ABN* (05/02/15 6:19 AM) Calcium Lvl 7.7 mg/dL [8.6-10.0 mg/dL] *LOW* (05/02/15 6:19 AM) Albumin Lvl [3.5-4.8 2.3 gm/dL gm/dL] *LOW* (05/02/15 6:19 AM) Total Protein 6.5 gm/dL [6.1-7.9 gm/dL] (04/30/15 5:54 AM) Globulin [1.9-4.3 3.7 gm/dL gm/dL] (04/30/15 5:54 AM) ALT [14-54 U/L] 14 U/L (04/30/15 5:54 AM) AST [15-41 U/L] 17 U/L (04/30/15 5:54 AM) Alk Phos [26-104 121 U/L U/L] *HI* (04/30/15 5:54 AM) Bili Total [0.2-1.2 0.7 mg/dL 2 mg/dL] (04/30/15 5:54 AM) Magnesium Lvl 2.1 mg/dL [1.8-2.5 mg/dL] (05/01/15 4:55 AM) Phosphorus [2.4-4.7 6.5 mg/dL 3 mg/dL] *HI* (05/02/15 6:19 AM) Troponin [<0.06 <0.05 ng/mL ng/mL] (04/30/15 5:54 AM) Screen, Negative Urine NPT (04/30/15 5:57 AM) Blood Glucose, 183 mg/dL Capillary [70-100 *HI* mg/dL] (05/03/15 1:03 PM) Blood Glucose, High Capillary Out of (05/01/15 10:00 PM) Range Hgb A1c [4.1-5.6 %] 13.1 % *HI* (05/01/15 4:55 AM) eAvg Glucose 329.3 mg/dL (05/01/15 4:55 AM) 1Result Comment: Multiply eGFR results by 1.21 for race. 2Result Comment: Naproxen, specifically the metabolite O-desmethylnaproxen, may cause spurious elevation in Total Bilirubin levels. 3Result Comment: High dosages of liposomal Amphotericin B (AmBisome) therapy or other drug preparations that use a liposomal envelope to facilitate drug delivery may cause falsely elevated results for phosphorus. Microbiology Reports TEST: MRSA Screen Culture STATUS: Auth (Verified) BODY SITE: SOURCE: COLLECTED DATE/TIME: 05/01/15 3:26 PM MRSA Screen Culture No Methicillin Resistant Staphylococcus aureus isolated. TEST: Respiratory Virus Panel - PCR STATUS: Auth (Verified) BODY SITE: SOURCE: Nasopharyngeal Swab COLLECTED DATE/TIME: 04/30/15 10:59 AM Respiratory Virus Panel - PCR Negative for all strains tested. . Specimen tested for the following FDA approved viral targets: Influenza A, Influenza A subtype H1, Influenza A subtype H3, Influenza A 2009 H1N1, Influenza B, Respiratory Syncytial Virus subtype A, Respiratory Syncytial Virus subtype B, Adenovirus B/E, Adenovirus C, Rhinovirus, Parainfluenza virus 1, Parainfluenza virus 2, Parainfluenza virus 3, and Human Metapneumovirus. . The following viral targets were also tested. Although not FDA approved, these targets have been validated by our laboratory for clinical diagnosis: Parainfluenza virus 4, Coronavirus 229E, Coronavirus NL63, Coronavirus HKU1, and Coronavirus OC43. 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
--- OUTSIDE RECORDS SUMMARY | 2016-11-11 21:26 | XMS REPORT ---
Author Author Martha Jamil [facility] eClinicalWorks Address Unknown Phone Unavailable Care Team Providers Care Hydrate Thickener Operator Name Role Phone Martha Jamil CP Unavailable [...] Problem Other specified anemias 285.8 Active Assessment Generalized anxiety disorder 300.02 Active Assessment Insomnia, unspecified 780.52 Active Assessment Panic disorder without agoraphobia 300.01 Active Assessment Major depressive disorder, recurrent episode, moderate 296.32 Active Problem Mixed hyperlipidemia 272.2 Active Medications Medication Code System Code Instructions Start Date End Date Status Dosage Irbesartan [facility] [address]-92 150 MG Orally Once a day 1 tablet Trazodone HCl [facility] [address]-01 100 Milligram Orally Once a day at bedtime 2 tablets by mouth at bedtime for sleep [place] 1/2" [facility] [address]-21 29G X 12MM subcut with insulin QID Mar 24, 2014 use as directed Lantus [facility] [address]-06 100 UNIT/ML Subcutaneous Daily 45 units hs Latuda [facility] [address]-15 40 MG Orally Once a day after supper and 1/2 tablet extra per day as needed for increased anxiety Sep 22, 2013 1/2 tablet Furosemide [facility] [address]-06 20 MG Orally Twice a day 1 tablet Humalog KwikPen [facility] [address]-23 100 UNIT/ML Subcutaneous 2-3 times a day Jun 08, 2014 5-10 units Procedures Procedure Coding System Code Date OFFICE VISIT, EST-MOD. COMPLEXITY (25 MIN) CPT-4 29114 February 01, 2015 [facility] visit Established Patient CPT-4 G0467 February 01, 2015 Vital Signs Date/Time: February 01, 2015 Height 63 in Weight 182.12 lbs Temperature 99.0 F Blood Pressure Diastolic 80 mm Hg Blood Pressure Systolic 142 mm Hg Cardiac Monitoring Heart Rate 80 /min BMI 32.26 Index Respiratory Rate 24 /min Results No Known Results Summary Purpose eClinicalWorks Submission
--- OUTSIDE RECORDS SUMMARY | 2016-11-11 21:26 | XMS REPORT ---
Author Author Martha Jamil Organization [employer] Address Unknown Phone Unavailable Care Team Providers Care Fur Farmer Name Role Phone Martha Jamil CP Unavailable Allergies No Known Allergies Problems Problem Type Condition Code Onset Dates Condition Status Problem Major depressive disorder, recurrent episode, moderate 296.32 Active Problem UTI 599.0 Active Problem Generalized anxiety disorder 300.02 Active Problem Mixed hyperlipidemia 272.2 Active Problem [...] Date End Date Status Dosage Trazodone HCl [facility] [address]-35 100 Milligram Orally Once a day at bedtime 2 tablets by mouth at bedtime for sleep Results No Known Results Summary Purpose eClinicalWorks Submission
--- OUTSIDE RECORDS SUMMARY | 2016-11-11 21:26 | XMS REPORT | Continuity of Care Document ---
Author Author [facility] Organization [facility] Address Unknown Phone Unavailable Allergies Active Description Code Type Severity Reaction Onset Reported/Identified Relationship to Patient Clinical Status Yes Erythromycin Base Drug Allergy Urticaria (hives) 02/24/2012 Yes Erythromycin Base Drug Allergy N/A Urticaria (hives) 02/24/2012 Medications Problems Date Dx Coded Attending Type Code Diagnosis Diagnosed By 05/18/2012 Jose Delvalle DO Final 250.00 DM2/NOS UNCOMP NSU 05/18/2012 Jose Delvalle DO Final 355.9 MONONEURITIS NOS 05/18/2012 Jose Delvalle DO Final 729.5 PAIN IN LIMB 05/18/2012 Jose Delvalle DO Final V62.84 SUICIDE IDEATION 11/22/2012 Dilan Quijano MD Final 250.60 DM2/NOS W NEUR MANIF NSU 11/22/2012 Dilan Quijano MD Final 272.0 PURE HYPERCHOLESTEROLEM 11/22/2012 Dilan Quijano MD Final 357.2 NEUROPATHY IN DIABETES 11/22/2012 Dilan Quijano MD Final 625.9 FE GENITAL SYMPTOMS NOS 11/22/2012 Dilan Quijano MD Final 789.00 ABDOMINAL PAIN-SITE NOS 12/18/2013 Joel Escobar MD 250.00 DM2/NOS UNCOMP NSU 12/18/2013 Joel Escobar MD 311 DEPRESSIVE DISORDER NEC 12/18/2013 oJel Escobar MD 593.9 RENAL/URETER DISORD NOS 12/18/2013 Joel Escobar MD 617.9 ENDOMETRIOSIS NOS 12/18/2013 Joel Escobar MD 626.7 POSTCOITAL BLEEDING 12/12/2015 E87.70 Fluid overload, unspecified [place] 12/12/2015 J81.0 Acute pulmonary edema [place] 12/12/2015 J96.01 Acute respiratory failure with hypoxia [place] 12/12/2015 J98.11 Atelectasis REEDERAL BARNARD MD Procedures Code Description [place] [address] Initial hospital care, per day, for the evaluation and management of a patient, which requires these AL REEDER MD 01/10/2016 61253 Subsequent hospital care, per day, for the evaluation and management of a patient, which requires at AL REEDER MD 01/10/2016 48021 Initial hospital care, per day, for the evaluation and management of a patient, which requires these AL REEDER MD 01/17/2016 39149 Subsequent hospital care, per day, for the evaluation and management of a patient, which requires at AL REEDER MD 01/17/2016 Results Test Result Range UR TEST - 05/18/12 04:55 UR TEST NEGATIVE NEGATIVE Encounters ACCT No. Visit Date/Time Discharge Status Pt. Type Provider Facility Loc./Unit Complaint [id number] 05/18/2012 04:03:00 2011 05:25:00 DIS Emergency Amanuel Beth DO [facility] W.EDS
--- OUTSIDE RECORDS SUMMARY | 2016-11-11 21:26 | XMS REPORT ---
Author Author Jaylyn Young [facility] eClinicalWorks Address Unknown Phone Unavailable Care Team Providers Care Registered Clinical Dietitian Name Role Phone Jaylyn Young CP Unavailable Allergies No Known Allergies Problems [...] from female genital tract 626.8 Active Problem Mixed hyperlipidemia 272.2 Active Problem Major depressive disorder, recurrent episode, moderate 296.32 Active Assessment Headache R51 Active Problem Generalized anxiety disorder 300.02 Active Assessment Cervical root disorders, not elsewhere classified G54.2 Active Problem UTI 599.0 Active Medications No Known Medications Results Name Result Date Reference Range Unit Abnormality Flag MRI : Brain MRI : Cervical without Contrast Summary Purpose eClinicalWorks Submission
--- OUTSIDE RECORDS SUMMARY | 2016-11-11 21:26 | XMS REPORT ---
Author Author Jaylyn Young [facility] eClinicalWorks Address Unknown Phone Unavailable Care Team Providers Care Straddle Truck Driver Name Role Phone Jaylyn Young Unavailable Allergies [...] Problem Other specified anemias 285.8 Active Medications No Known Medications Results No Known Results Summary Purpose eClinicalWorks Submission
--- OUTSIDE RECORDS SUMMARY | 2016-11-11 21:26 | XMS REPORT | Referral Summary ---
Author Author [facility] Care Organization [facility] Address Unknown Phone Unavailable Care Team Providers Care Test Examiner Name Role Phone Hector, Jaylyn Primary Care Physician [phone] Encounter [facility] Date(s): 11/22/15 - 11/22/15 [facility] [address] [place] [id number] Discharge Disposition: 01-Home or Self Care Attending Physician: aGbo Florez PA-C Admitting Physician: Gabo Florez PA-C Vital Signs No data available for this section Problem List Condition Effective Dates Status Health [...] # 18 g, 2 Refill(s), Pharmacy : [facility] [id number] Start Date: 11/25/14 Status: Ordered Epogen 10,000 units/mL injectable solution 10,000 units 1 mL, SubCutaneous, MWF, 0 Refill(s) Start Date: 05/02/15 Status: Ordered Fioricet oral tablet 2 tabs, Oral, q6hr, as needed for pain, # 20 tabs, 0 Refill(s) Start Date: 11/22/15 Status: Ordered HumaLOG KwikPen 10 units, SubCutaneous, [...] Refill(s) Start Date: 04/30/15 Status: Ordered Results No data available for this section Immunizations No data available for this section Procedures Procedure Date Related Diagnosis Body Site Creation 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 She stated that she was advised to see her Dr. by Dialysis yesterday and she was not able to see her physician. She was concerned that if she needed to be hospitalized that she would need to be in [place] so decided to go on to [place] where she could get care for dialysis if needed.
--- OUTSIDE RECORDS SUMMARY | 2016-11-11 21:26 | XMS REPORT | Referral Summary ---
Author Author [facility] Organization [facility] Address Unknown Phone Unavailable Care Team Providers Care Zinc Chloride Operator Name Role Phone Jaylyn Young Primary Care Physician [phone] Encounter VC Date(s): 12/22/15 - 12/22/15 [facility] [address], [place] [address] Discharge Diagnosis: Surgery follow-up Discharge Disposition: 01-Home or Self Care Attending Physician: Nany Sexton MD Admitting Physician: Nany Sexton MD Vital Signs Most recent to 1 oldest [Reference Range]: Temperature Oral 36.7 degC [35.8-37.3 degC] (12/22/15 1:32 PM) Peripheral Pulse 89 bpm Rate [60-100 bpm] (12/22/15 1:32 PM) Respiratory Rate 20 br/min [14-20 br/min] (12/22/15 1:32 PM) Blood Pressure 162/90 mmHg [90-140/60-90 mmHg] *HI* (12/22/15 1:32 PM) SpO2 98 % (12/22/15 1:32 PM) Problem List Condition Effective Dates Status Health Status Informant Acute Active pain(Confirmed) Acute Active sinusitis(Confirmed) Alteration in Active nutrition(Confirmed) 1 Anemia(Confirmed) Active Anxiety(Confirmed) Active patient Asthma(Confirmed) Active Depression(Confirmed Active patient ) Dialysis Active patient patient(Confirmed) Fluid Active imbalance(Confirmed) 2 Impaired gas Active exchange(Confirmed)3 Bone 2011 Active infection(Confirmed) Bone 2010 Active infection(Confirmed) Knowledge Active deficit(Confirmed)4 Pelvic pain in Active female(Confirmed) Pneumonia(Confirmed) Active Renal Active failure(Confirmed) Tissue perfusion Active alteration(Confirmed )5 Tobacco Active patient user(Confirmed) Diabetes mellitus Active type 1 (disorder)(Confirmed ) 1Problem added automatically by system based on initiation of Alteration in Nutrition Plan of Care 2Problem added automatically by system based on initiation of Fluid Volume Imbalance Plan of Care 3Problem added automatically by system based on initiation of Impaired Gas Exchange Plan of Care 4Problem added automatically by system based on initiation of Knowledge Deficit Plan of Care 5Problem added automatically by system based on initiation of Tissue Perfusion Cerebral Plan of Care Allergies, Adverse Reactions, Alerts Substance Reaction Severity Status azithromycin Active erythromycin Urticaria (hives) Active Phenergan Tremors Active Medications acetaminophen 325 mg oral tablet [...] # 18 g, 2 Refill(s), Pharmacy : [facility] [id number] Start Date: 11/25/14 Status: Ordered amLODIPine 5 mg, Oral, Daily, 0 Refill(s) Start Date: 11/24/15 Status: Ordered Fioricet oral tablet 2 tabs, Oral, q6hr, as needed for pain, # 20 tabs, 0 Refill(s) Start Date: 11/22/15 Status: Ordered HumaLOG KwikPen sliding scale, SubCutaneous, TIDAC, 0 Refill(s) Start Date: 11/04/14 Status: Ordered hydrOXYzine 50 mg, Oral, BID, as needed for anxiety, 25mg - 50mg, 0 Refill(s) Start Date: 11/24/15 Status: Ordered Lantus 100 units/mL subcutaneous solution 50 unit, SubCutaneous, Bedtime (once a day), 0 Refill(s) Start Date: 03/05/14 Status: Ordered losartan 100 mg oral tablet 100 mg 1 tabs, Oral, Daily, # 30 tabs, 0 Refill(s) Start Date: 04/30/15 Status: Ordered ondansetron 4 mg oral tablet, disintegrating 4 mg 1 tabs, Oral, TID, as needed for nausea/vomiting, 0 Refill(s) Start Date: 11/24/15 Status: Ordered pantoprazole 40 mg oral delayed release tablet 40 mg 1 tabs, Oral, Daily, Take in the morning 30 minutes before eating breakfast., # 30 tabs, 3 Refill(s), Pharmacy: [facility] [id number], 1 tabs Oral Daily,Instr:Take in the morning 30 minutes before eating breakfast. Start Date: 12/02/15 Status: Ordered Percocet 5/325 oral tablet 1-2 tabs, Oral, q4hr, Pain Moderate (4-6), 0 Refill(s) Start Date: 12/02/15 Status: Ordered rOPINIRole 0.5 mg, Oral, Daily, 0.25mg - 0.5mg, 0 Refill(s) Start Date: 11/24/15 Status: Ordered traZODone 100 mg oral tablet 200 mg 2 tabs, Oral, Bedtime (once a day), # 270 tabs, 0 Refill(s) Start Date: 04/30/15 Status: Ordered Results No data available for this section Immunizations No data available for this section Procedures Procedure Date Related Diagnosis Body Site Cholecystectomy Laparoscopic Resident1 12/01/15 Catheterization Left Heart with Coronary 11/28/15 Angiography (Right, Groin)2 Creation Fistula Arterial Venous Arm (Left)3 03/08/14 Amputation4 Cellulitis5 Eye6 1auto-populated from documented surgical case 2auto-populated from documented surgical case 3auto-populated from documented surgical case 42 TOES AMPUTATED FROM LEFT FOOT 5RT THIGH 6CATARACTS REMOVED ERIC Social History Social History Type Response Smoking Status Current some day smoker; Type: Cigars1 1Every now and then Assessment and Plan Extracted from: Title: Surgery Clinic Note Author: Scott Rai MD Date: 12/22/15 Assessment/Plan Surgery follow-up 35 year old female presenting to surgery clinic for 3 week follow up s/p laparoscopic cholecystectomy. - Pt doing well postoperatively - Pain controlled - Pathology: Mild chronic cholecystitis with cholelithiasis. - Follow up with Surgery Clinic PRN Pt discussed with Dr. Falk, the Unassigned Chief, who agrees with the A&P. I reviewed this chart, the patient's medical history, and the Resident's/PAEDIATRICIAN's /PA/RN's/PharmD's documented findings, and concur with the assessment and plan as above.
--- OUTSIDE RECORDS SUMMARY | 2016-11-11 21:26 | XMS REPORT | Referral Summary ---
Author Organization Unknown Address Unknown Phone Unavailable Care Team Providers Care Career Resource Technician Name Role Phone Jaylyn Young Primary Care Physician [phone] Encounter GEORGIE [id number] Date(s): 09/10/14 - 09/10/14 Via [facility] [address] [place], [place] [address] Discharge Diagnosis: Acute URI Discharge Diagnosis: Sinusitis Discharge Disposition: Home or Self Care Attending Physician: Flori Harrison APRN Admitting Physician: Flori Harrison APRN Referring Physician: Jaylyn Young WIRE DRAWING MACHINE OPERATOR Vital Signs Most recent to 1 oldest [Reference Range]: Temperature Tympanic 36.8 degC [36.6-38.1 degC] (09/10/14 4:58 PM) Peripheral Pulse 108 bpm Rate [60-100 bpm] *HI* (09/10/14 4:58 PM) Blood Pressure 128/82 mmHg [90-140/60-90 mmHg] (09/10/14 4:58 PM) Most recent to 1 oldest [Reference Range]: SpO2 95 % (09/10/14 4:58 PM) Problem List Condition Effective Dates Status Health Status Informant Renal Active failure(Confirmed) Diabetes mellitus Active type 1 (disorder)(Confirmed ) Allergies, Adverse Reactions, Alerts Substance Reaction Severity Status azithromycin Active erythromycin Urticaria (hives) Active Medications Apidra 100 units/mL subcutaneous solution See Instructions, SubCutaneous TIDAC TOOK 10 UNITS LAST NIGHT FOR EVENING MEAL , 0 Refill(s) Special Instructions: SubCutaneous TIDAC TOOK 10 UNITS LAST NIGHT FOR EVENING MEAL Start Date: 03/05/14 Status: Ordered Cipro 500 mg oral tablet 1 tabs, Oral, q12hr, X 10 days, # 20 tabs, 0 Refill(s) Start Date: 09/10/14 Stop Date: 09/20/14 Status: Ordered Diflucan 150 mg oral tablet See Instructions, 1 tab now and one in 10 days, # 2 tabs, 0 Refill(s) Special Instructions: 1 tab now and one in 10 days Start Date: 09/10/14 Stop Date: 09/20/14 Status: Ordered furosemide 20 mg oral tablet 1 tabs, Oral, BID, 0 Refill(s) Start Date: 03/05/14 Status: Ordered irbesartan 75 mg oral tablet 1 tabs, Oral, Daily, # 30 tabs, 0 Refill(s) Start Date: 08/30/14 Status: Ordered Lantus 100 units/mL subcutaneous solution 45, SubCutaneous, Bedtime (once a day), 0 Refill(s) Start Date: 03/05/14 Status: Ordered predniSONE 20 mg oral tablet 1 tabs, Oral, Daily, X 5 days, # 5 tabs, 0 Refill(s) Start Date: 09/10/14 Stop Date: 09/15/14 Status: Ordered Promethazine VC with Codeine oral syrup 5 mL, Oral, q4hr, as needed for cough, # 120 mL, 0 Refill(s) Start Date: 09/10/14 Stop Date: 09/17/14 Status: Ordered sodium bicarbonate 650 mg oral tablet 3 tabs, Oral, Daily, # 60 tabs, 0 Refill(s) Start Date: 03/05/14 Status: Ordered traZODone 50 mg oral tablet 1 tabs, Oral, Bedtime (once a day), 0 Refill(s) Start Date: 03/05/14 Status: Ordered Results No data available for this section Immunizations No data available for this section Procedures Procedure Date Related Diagnosis Body Site Creation 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 Paranasal sinuses are air pockets within the bones of your face ( beneath the eyes, the middle of the forehead, or above the eyes). In healthy paranasal sinuses, mucus is able to drain out, and air is able to circulate through them by way of your nose. However, when your paranasal sinuses are inflamed, mucus and air can become trapped. This can allow bacteria and other germs to grow and cause infection. Sinusitis can develop quickly and last only a short time (acute ) or continue over a long period (chronic ). Sinusitis that lasts for more than 12 weeks is considered chronic. CAUSES Causes of sinusitis include: Allergies. Structural abnormalities, such as displacement of the cartilage that separates your nostrils (deviated septum ), which can decrease the air flow through your nose and sinuses and affect sinus drainage. Functional abnormalities, such as when the small hairs (cilia ) that line your sinuses and help remove mucus do not work properly or are not present. SYMPTOMS Symptoms of acute and chronic sinusitis are the same. The primary symptoms are pain and pressure around the affected sinuses. Other symptoms include: Upper toothache. Earache. Headache. Bad breath. Decreased sense of smell and taste. A cough, which worsens when you are lying flat. Fatigue. Fever. Thick drainage from your nose, which often is green and may contain pus ( purulent ). Swelling and warmth over the affected sinuses. DIAGNOSIS Your caregiver will perform a physical exam. During the exam, your caregiver may : Look in your nose for signs of abnormal growths in your nostrils (nasal polyps) . Tap over the affected sinus to check for signs of infection. View the inside of your sinuses (endoscopy ) with a special imaging device with a light attached (endoscope ), which is inserted into your sinuses. If your caregiver suspects that you have chronic sinusitis, one or more of the following tests may be recommended: Allergy tests. Nasal cultureA sample of mucus is taken from your nose and sent to a lab and screened for bacteria. Nasal cytologyA sample of mucus is taken from your nose and examined by your caregiver to determine if your sinusitis is related to an allergy. TREATMENT Most cases of acute sinusitis are related to a viral infection and will resolve on their own within 10 days. Sometimes medicines are prescribed to help relieve symptoms (pain medicine, decongestants, nasal steroid sprays, or saline sprays) . However, for sinusitis related to a bacterial infection, your caregiver will prescribe antibiotic medicines. These are medicines that will help kill the bacteria causing the infection. Rarely, sinusitis is caused by a fungal infection. In theses cases, your caregiver will prescribe antifungal medicine. For some cases of chronic sinusitis, surgery is needed. Generally, these are cases in which sinusitis recurs more than 3 times per year, despite other treatments. HOME CARE INSTRUCTIONS Drink plenty of water. Water helps thin the mucus so your sinuses can drain more easily. Use a humidifier. Inhale steam 3 to 4 times a day (for example, sit in the bathroom with the shower running). Apply a warm, moist washcloth to your face 3 to 4 times a day, or as directed by your caregiver. Use saline nasal sprays to help moisten and clean your sinuses. Take [id number]-[id number] or prescription medicines for pain, discomfort, or fever only as directed by your caregiver. SEEK IMMEDIATE MEDICAL CARE IF: You have increasing pain or severe headaches. You have nausea, vomiting, or drowsiness. You have swelling around your face. You have vision problems. You have a stiff neck. You have difficulty breathing. MAKE SURE YOU: Understand these instructions. Will watch your condition. Will get help right away if you are not doing well or get worse. Document Released: 07/29/2006 Document Revised: 10/20/2012 Document Reviewed: [facility] Patient Information 2014 [employer] [facility]. Family Medicine Upper Respiratory Infection, Adult An upper respiratory infection (URI) is also sometimes known as the common cold. The upper respiratory tract includes the nose, sinuses, throat, trachea, and bronchi. Bronchi are the airways leading to the lungs. Most people improve within 1 week, but symptoms can last up to 2 weeks. A residual cough may last even longer. CAUSES Many different viruses can infect the tissues lining the upper respiratory tract. The tissues become irritated and inflamed and often become very moist. Mucus production is also common. A cold is contagious. You can easily spread the virus to others by oral contact. This includes kissing, sharing a glass, coughing, or sneezing. Touching your mouth or nose and then touching a surface, which is then touched by another person, can also spread the virus. SYMPTOMS Symptoms typically develop 1 to 3 days after you come in contact with a cold virus. Symptoms vary from person to person. They may include: Runny nose. Sneezing. Nasal congestion. Sinus irritation. Sore throat. Loss of voice (laryngitis ). Cough. Fatigue. Muscle aches. Loss of appetite. Headache. Low-grade fever. DIAGNOSIS You might diagnose your own cold based on familiar symptoms, since most people get a cold 2 to 3 times a year. Your caregiver can confirm this based on your exam. Most importantly, your caregiver can check that your symptoms are not due to another disease such as strep throat, sinusitis, pneumonia, asthma, or epiglottitis. Blood tests, throat tests, and X-rays are not necessary to diagnose a common cold, but they may sometimes be helpful in excluding other more serious diseases. Your caregiver will decide if any further tests are required. RISKS AND COMPLICATIONS You may be at risk for a more severe case of the common cold if you smoke cigarettes, have chronic heart disease (such as heart failure) or lung disease ( such as asthma), or if you have a weakened immune system. The very young and very old are also at risk for more serious infections. Bacterial sinusitis, middle ear infections, and bacterial pneumonia can complicate the common cold. The common cold can worsen asthma and chronic obstructive pulmonary disease ( COPD). Sometimes, these complications can require emergency medical care and may be life-threatening. PREVENTION The best way to protect against getting a cold is to practice good hygiene. Avoid oral or hand contact with people with cold symptoms. Wash your hands often if contact occurs. There is no clear evidence that vitamin C, vitamin E, echinacea, or exercise reduces the chance of developing a cold. However, it is always recommended to get plenty of rest and practice good nutrition. TREATMENT Treatment is directed at relieving symptoms. There is no cure. Antibiotics are not effective, because the infection is caused by a virus, not by bacteria. Treatment may include: Increased fluid intake. Sports drinks offer valuable electrolytes, sugars, and fluids. Breathing heated mist or steam (vaporizer or shower). Eating chicken soup or other clear broths, and maintaining good nutrition. Getting plenty of rest. Using gargles or lozenges for comfort. Controlling fevers with ibuprofen or acetaminophen as directed by your caregiver. Increasing usage of your inhaler if you have asthma. Zinc gel and zinc lozenges, taken in the first 24 hours of the common cold, can shorten the duration and lessen the severity of symptoms. Pain medicines may help with fever, muscle aches, and throat pain. A variety of non-prescription medicines are available to treat congestion and runny nose. Your caregiver can make recommendations and may suggest nasal or lung inhalers for other symptoms. HOME CARE INSTRUCTIONS Only take yikz-vzs-rbveyjr or prescription medicines for pain, discomfort, or fever as directed by your caregiver. Use a warm mist humidifier or inhale steam from a shower to increase air moisture. This may keep secretions moist and make it easier to breathe. Drink enough water and fluids to keep your urine clear or pale yellow. Rest as needed. Return to work when your temperature has returned to normal or as your caregiver advises. You may need to stay home longer to avoid infecting others. You can also use a face mask and careful hand washing to prevent spread of the virus. SEEK MEDICAL CARE IF: After the first few days, you feel you are getting worse rather than better. You need your caregiver's advice about medicines to control symptoms. You develop chills, worsening shortness of breath, or brown or red sputum. These may be signs of pneumonia. You develop yellow or brown nasal discharge or pain in the face, especially when you bend forward. These may be signs of sinusitis. You develop a fever, swollen neck glands, pain with swallowing, or white areas in the back of your throat. These may be signs of strep throat. SEEK IMMEDIATE MEDICAL CARE IF: You have a fever. You develop severe or persistent headache, ear pain, sinus pain, or chest pain. You develop wheezing, a prolonged cough, cough up blood, or have a change in your usual mucus (if you have chronic lung disease). You develop sore muscles or a stiff neck. Document Released: 01/22/2002 Document Revised: 10/20/2012 Document Reviewed: [facility] Patient Information 2014 [employer]. No follow up information was provided. Extracted from: Title: Office Visit Note Author: Flori Harrison APRN Date: 09/10/14 Assessment/Plan Acute URI Rx's to be taken as prescribed. Mucinex during the day, Rx cough suppressant at night. PCP/IC/ER if symptoms not improving or worsen. Ordered: Office Visit Level 3 Est 30547 Sinusitis Saline nasal washes am and pm. Saline Nasal spray or gel as needed. Increase oral fluids and environmental humidity. Ordered: Office Visit Level 3 Est 86225 Orders: ciprofloxacin, 1 tabs, Oral, q12hr, X 10 days, # 20 tabs, 0 Refill(s) fluconazole, See Instructions, 1 tab now and one in 10 days, # 2 tabs, 0 Refill(s) predniSONE, 1 tabs, Oral, Daily, X 5 days, # 5 tabs, 0 Refill(s) promethazine/phenylephrine/codeine, 5 mL, Oral, q4hr, as needed for cough, # 120 mL, 0 Refill(s)
--- OUTSIDE RECORDS SUMMARY | 2016-11-11 21:26 | XMS REPORT ---
Author Author Jaylyn Young [facility] eClinicalWorks Address Unknown Phone Unavailable Care Team Providers Care Propellant Charge Zone Assembler Name Role Phone Jaylyn Young Unavailable Allergies [...] Instructions Start Date End Date Status Dosage NovoLog Flexpen [facility] [address]-05 100 UNIT/ML Subcutaneous two to three times a day Mar 16, 2015 5-10 units Results No Known Results Summary Purpose eClinicalWorks Submission
--- OUTSIDE RECORDS SUMMARY | 2016-11-11 21:27 | XMS REPORT ---
Author Author Jaylyn Young [facility] eClinicalWorks Address Unknown Phone Unavailable Care Team Providers Care Core Feeder Name Role Phone Jaylyn Young Unavailable Allergies No Known Allergies Problems Problem Type Condition Code Onset Dates Condition Status Problem Other specified anemias 285.8 Active Problem Anemia in chronic kidney disease 285.21 Active Problem Abdominal pain, unspecified site 789.00 Active Problem Essential (primary) hypertension I10 Active Problem Chronic kidney disease, stage 4 (severe) N18.4 Active Problem Chronic kidney disease, unspecified N18.9 Active Problem Panic disorder without agoraphobia 300.01 Active Problem Other disorder of menstruation and other abnormal bleeding from female genital tract 626.8 Active Problem Other specified diabetes mellitus without complications E13.9 Active Problem Mixed hyperlipidemia E78.2 Active Problem Generalized anxiety disorder 300.02 Active Problem UTI 599.0 Active Problem Mixed hyperlipidemia 272.2 Active Problem Insomnia, unspecified 780.52 Active Problem Major depressive disorder, recurrent episode, moderate 296.32 Active Problem Diabetes Mellitus Type 2, not stated as uncontrolled 250.00 Active Medications Medication Code System Code Instructions Start Date End Date Status Dosage Ropinirole HCl [facility] [address]-21 0.5 MG Orally Once a day October 25, 2015 1 tablet 1 to 3 hours before bedtime Results No Known Results Summary Purpose eClinicalWorks Submission
--- OUTSIDE RECORDS SUMMARY | 2016-11-11 21:27 | XMS REPORT ---
Author Author Jaylyn Young eClinicalWorks Address Unknown Phone Unavailable Care Team Providers Care Quality Control Lead Name Role Phone Jaylyn Young CP Unavailable [...] Problem Other specified anemias 285.8 Active Assessment Unspecified otitis media 382.9 Active Assessment Other specified disease of hair and hair follicles 704.8 Active Assessment Rash and other nonspecific skin eruption 782.1 Active Assessment Diabetes Mellitus Type 2, not stated as uncontrolled 250.00 Active Problem Mixed hyperlipidemia 272.2 Active Medications Medication Code System Code Instructions Start Date End Date Status Dosage Latuda [facility] [address]-49 40 MG Orally Once a day after supper and 1/2 tablet extra per day as needed for increased anxiety Sep 22, 2013 1/2 tablet Lantus [facility] [address]-22 100 UNIT/ML Subcutaneous Daily 45 units hs Clindamycin Phosphate [facility] [address]-35 1 % Externally BID for a week or until rash is gone February 03, 2015 Apr 04, 2015 1 application to affected area after washing Furosemide [facility] [address]-22 20 MG Orally Twice a day 1 tablet Pen [place] 1/2" [facility] [address]-67 29G X 12MM subcut with insulin QID Mar 24, 2014 use as directed Trazodone HCl [facility] [address]-68 100 Milligram Orally Once a day at bedtime 2 tablets by mouth at bedtime for sleep Diflucan [facility] [address]-74 150 MG Orally x 1, may repeat in one week if needed February 03, 2015 February 05, 2015 1 tablet Humalog KwikPen [facility] [address]-84 100 UNIT/ML Subcutaneous 2-3 times a day Jun 08, 2014 5-10 units Irbesartan [facility] [address]-30 150 MG Orally Once a day 1 tablet Amoxicillin [facility] [address]-25 500 MG Orally Twice a day February 03, 2015 February 10, 2015 1 capsule Procedures Procedure Coding System Code Date OFFICE VISIT, EST-LOW COMPLEXITY (15 MIN.) CPT-4 80193 February 03, 2015 [facility] visit Established Patient CPT-4 G0467 February 03, 2015 Vital Signs Date/Time: February 03, 2015 Height 63 in Weight 184.4 lbs Temperature 98.7 F Blood Pressure Diastolic 86 mm Hg Blood Pressure Systolic 160 mm Hg Cardiac Monitoring Heart Rate 68 /min BMI 32.66 Index Respiratory Rate 12 /min Results No Known Results Summary Purpose eClinicalWorks Submission
--- OUTSIDE RECORDS SUMMARY | 2016-11-11 21:27 | XMS REPORT ---
Author Author Jaylyn Young eClinicalWorks Address Unknown Phone Unavailable Care Team Providers Care Ibm Websphere Portal Developer Name Role Phone Jaylyn Young CP Unavailable Allergies, Adverse Reactions, Alerts Substance Reaction Event Type Azithromycin hives Drug Allergy Problems Problem Type Condition ICD-9 Code Onset Dates Condition Status Problem Major depressive disorder, recurrent episode, moderate 296.32 Active Problem UTI 599.0 Active Problem Generalized anxiety disorder 300.02 Active Assessment Acute serous otitis media 381.01 Active Problem Mixed hyperlipidemia 272.2 Active Problem [...] Instructions Start Date End Date Status Dosage Cefdinir [facility] [address]-61 300 MG Orally Twice a day February 16, 2015February 1 capsule Pen [place] 1/2" [facility] [address]-20 29G X 12MM subcut with insulin QID Mar 24, 2014 use as directed Latuda [facility] [address]-29 40 MG Orally Once a day after supper and 1/2 tablet extra per day as needed for increased anxiety Sep 22, 2013 1/2 tablet Furosemide [facility] [address]-05 20 MG Orally Twice a day 1 tablet Trazodone HCl [facility] [address]-28 100 Milligram Orally Once a day at bedtime 2 tablets by mouth at bedtime for sleep Ciprodex [facility] [address]-25 0.3-0.1 % Otic Twice a day February 16, 2015 4 drops into affected ear Irbesartan [facility] [address]-26 150 MG Orally Once a day 1 tablet Diflucan [facility] [address]-45 150 MG Orally x1, may repeat in a week February 16, 2015 1 tablet Clindamycin Phosphate [facility] [address]-04 1 % Externally BID for a week or until rash is gone February 03, 2015 Apr 04, 2015 1 application to affected area after washing Humalog KwikPen [facility] [address]-42 100 UNIT/ML Subcutaneous 2-3 times a day Jun 08, 2014 5-10 units Lantus [facility] [address]-07 100 UNIT/ML Subcutaneous Daily 45 units hs Procedures Procedure Coding System Code Date OFFICE VISIT, EST-LOW COMPLEXITY (15 MIN.) CPT-4 11798 February 16, 2015 [facility] visit Established Patient CPT-4 G0467 February 16, 2015 Vital Signs Date/Time: February 16, 2015 Height 63 in Weight 186.12 lbs Temperature 97.9 F Blood Pressure Diastolic 82 mm Hg Blood Pressure Systolic 166 mm Hg Cardiac Monitoring Heart Rate 84 /min BMI 32.97 Index Respiratory Rate 14 /min Results No Known Results Summary Purpose eClinicalWorks Submission
--- OUTSIDE RECORDS SUMMARY | 2016-11-11 21:27 | XMS REPORT ---
Author Jaylyn Persaud eClinicalWorks Address Unknown Phone Unavailable Care Team Providers Care Laboratory Secretary Name Role Phone Jaylyn Young CP Unavailable [...] from female genital tract 626.8 Active Assessment Vaginal rah B37.3 Active Problem Mixed hyperlipidemia 272.2 Active Problem Major depressive disorder, recurrent episode, moderate 296.32 Active Assessment Encounter for gynecological examination (general) (routine) without abnormal findings Z01.419 Active Problem Generalized anxiety disorder 300.02 Active Assessment Screening breast examination Z12.39 Active Problem UTI 599.0 Active Medications Medication Code System Code Instructions Start Date End Date Status Dosage Furosemide [facility] [address]-77 20 MG Orally Twice a day prn 1 tablet Lantus [facility] [address]-48 100 UNIT/ML Subcutaneous Daily 36 units hs NovoLog Flexpen [facility] [address]-08 100 UNIT/ML Subcutaneous two to three times a day Mar 16, 2015 5-10 units Trazodone HCl [facility] [address]-49 100 MG Orally Once a day at bedtime 2 tablets by mouth at bedtime for sleep Zofran ODT [facility] [address]-71 4 MG Orally every 6 hours as needed for nausea Jul 30, 2013 as directed ProAir HFA [facility] [address]-03 108 (90 Base) MCG/ACT Inhalation every 4 hrs Jun 14, 2015 2 puffs as needed Amlodipine Besylate [facility] [address]-52 5 MG Orally Once a day 1 tablet Losartan Potassium [facility] [address]-66 25 MG Orally Once a day hs not defined Folic Acid [facility] [address]-38 1 MG Orally Once a day Jul 28, 2015 Aug 13, 2016 1 tablet Fluconazole [facility] [address]-49 150 MG Orally x1 dose Apr 12, 2016Apr 1 tablet Ropinirole HCl [facility] [address]-49 0.5 MG Orally Once a day October 25, 2015 1 tablet 1 to 3 hours before bedtime Pen [place] 1/2" [facility] [address]-80 29G X 12MM subcut with insulin QID Mar 24, 2014 use as directed Procedures Procedure Coding System Code Date WELL ADULT, EST (18-39) CPT-4 67164 Apr 12, 2016 Results No Known Results Summary Purpose eClinicalWorks Submission
--- OUTSIDE RECORDS SUMMARY | 2016-11-11 21:27 | XMS REPORT ---
Author Author Latasha Cook [facility] eClinicalWorks Address Unknown Phone Unavailable Care Team Providers Care Cotton Acreage Measurer Name Role Phone Latasha Cook CP Unavailable Allergies, Adverse Reactions, Alerts Substance Reaction Event Type Azithromycin hives Drug Allergy Problems Problem Type Condition Code Onset Dates Condition Status Problem Major depressive disorder, recurrent episode, moderate 296.32 Active Problem UTI 599.0 Active Problem Generalized anxiety disorder 300.02 Active Assessment Acute bronchitis, unspecified J20.9 Active Problem Mixed hyperlipidemia 272.2 Active Problem [...] Start Date End Date Status Dosage Furosemide [facility] [address]-31 20 MG Orally Twice a day 1 tablet Latuda [facility] [address]-36 40 MG Orally Once a day after supper and 1/2 tablet extra per day as needed for increased anxiety Sep 22, 2013 1/2 tablet Lantus [facility] [address]-27 100 UNIT/ML Subcutaneous Daily 45 units hs Augmentin [facility] [address]-64 875-125 MG Orally Twice a day Sep 12, 2015 Sep 22, 2015 1 tablet Trazodone HCl [facility] [address]-21 100 Milligram Orally Once a day at bedtime 2 tablets by mouth at bedtime for sleep Flonase [facility] [address]-25 50 MCG/ACT Nasally Once a day Aug 23, 2015 1 spray in each nostril Losartan Potassium [facility] [address]-05 25 MG Orally Once a day hs not defined Zofran ODT [facility] [address]-17 4 MG Orally every 6 hours as needed for nausea Jul 30, 2013 as directed Promethazine-Codeine [facility] [address]-05 6.25-10 MG/5ML Orally every 6 hrs Sep 12, 2015 Sep 22, 2015 5 ml as needed ProAir HFA [facility] [address]-81 108 (90 Base) MCG/ACT Inhalation every 4 hrs Jun 14, 2015 2 puffs as needed Pen [place] 1/2" [facility] [address]-56 29G X 12MM subcut with insulin QID Mar 24, 2014 use as directed NovoLog Flexpen [facility] [address]-07 100 UNIT/ML Subcutaneous two to three times a day Mar 16, 2015 5-10 units Vitamin D3 [facility] [address]-98 5000 UNIT Orally Once a day Jul 28, 2015 February 23, 2016 1 tablet Amlodipine Besylate [facility] [address]-90 5 MG Orally Once a day 1 tablet Folic Acid [facility] [address]-47 1 MG Orally Once a day Jul 28, 2015 February 23, 2016 1 tablet Procedures Procedure Coding System Code Date INJECTION (plus drug) CPT-4 46290 Sep 12, 2015 [facility] visit Established Patient CPT-4 G0467 Sep 12, 2015 DEPO-MEDROL 80MG CPT-4 J1040 Sep 12, 2015 OFFICE VISIT, EST-LOW COMPLEXITY (15 MIN.) CPT-4 00551 Sep 12, 2015 Vital Signs Date/Time: Sep 12, 2015 Height 63 in Weight 191.8 lbs Temperature 98.5 F Blood Pressure Diastolic 57 mm Hg Blood Pressure Systolic 123 mm Hg Cardiac Monitoring Heart Rate 95 /min BMI 33.97 Index Oximetry 95 % Respiratory Rate 16 /min Results Name Result Date Reference Range Unit Abnormality Flag Chest X-ray PA and lateral Summary Purpose eClinicalWorks Submission
--- OUTSIDE RECORDS SUMMARY | 2016-11-11 21:27 | XMS REPORT ---
Author Author Latasha Cook [facility] eClinicalWorks Address Unknown Phone Unavailable Care Team Providers Care Credit Card Clerk Name Role Phone Latasha Cook CP Unavailable Allergies, Adverse Reactions, Alerts Substance Reaction Event Type Azithromycin hives Drug Allergy Problems Problem Type Condition Code Onset Dates Condition Status Problem Major depressive disorder, recurrent episode, moderate 296.32 Active Problem UTI 599.0 Active Problem Generalized anxiety disorder 300.02 Active Assessment Acute maxillary sinusitis, unspecified J01.00 Active Problem Mixed hyperlipidemia 272.2 Active Problem [...] Date End Date Status Dosage ProAir HFA [facility] [address]-74 108 (90 Base) MCG/ACT Inhalation every 4 hrs Jun 14, 2015 2 puffs as needed Losartan Potassium [facility] [address]-79 25 MG Orally Once a day hs not defined Lantus [facility] [address]-94 100 UNIT/ML Subcutaneous Daily 45 units hs Pen [place] 1/2" [facility] [address]-49 29G X 12MM subcut with insulin QID Mar 24, 2014 use as directed Folic Acid [facility] [address]-23 1 MG Orally Once a day Jul 28, 2015 February 23, 2016 1 tablet NovoLog Flexpen [facility] [address]-04 100 UNIT/ML Subcutaneous two to three times a day Mar 16, 2015 5-10 units Tessalon Perles [facility] [address]-50 100 MG Orally Three times a day Aug 23, 2015 Sep 02, 2015 1 capsule as needed Zofran ODT [facility] [address]-67 4 MG Orally every 6 hours as needed for nausea Jul 30, 2013 as directed Furosemide [facility] [address]-92 20 MG Orally Twice a day 1 tablet Flonase [facility] [address]-28 50 MCG/ACT Nasally Once a day Aug 23, 2015 1 spray in each nostril Doxycycline Hyclate [facility] [address]-74 100 MG Orally Once a day Aug 23, 2015 Sep 02, 2015 1 tablet Trazodone HCl [facility] [address]-07 100 Milligram Orally Once a day at bedtime 2 tablets by mouth at bedtime for sleep Amlodipine Besylate [facility] [address]-40 5 MG Orally Once a day 1 tablet Latuda [facility] [address]-88 40 MG Orally Once a day after supper and 1/2 tablet extra per day as needed for increased anxiety Sep 22, 2013 1/2 tablet Vitamin D3 [facility] [address]-90 5000 UNIT Orally Once a day Jul 28, 2015 February 23, 2016 1 tablet Procedures Procedure Coding System Code Date OFFICE VISIT, EST-LOW COMPLEXITY (15 MIN.) CPT-4 50110 Aug 23, 2015 [facility] visit Established Patient CPT-4 G0467 Aug 23, 2015 Vital Signs Date/Time: Aug 23, 2015 Height 63 in Weight 189.8 lbs Temperature 98.2 F Blood Pressure Diastolic 72 mm Hg Blood Pressure Systolic 139 mm Hg Cardiac Monitoring Heart Rate 83 /min BMI 33.62 Index Respiratory Rate 16 /min Results No Known Results Summary Purpose eClinicalWorks Submission
--- OUTSIDE RECORDS SUMMARY | 2016-11-11 21:27 | XMS REPORT | Referral Summary ---
Author Organization Unknown Address Unknown Phone Unavailable Care Team Providers Care Director Of Sustainable Design Name Role Phone Jaylyn Young Primary Care Physician [phone] Encounter VC Date(s): 08/30/14 - 08/30/14 [facility] [place] [place], [place] [address] Discharge Diagnosis: Fever Discharge Diagnosis: Type 1 diabetes mellitus Discharge Diagnosis: Renal failure Discharge Disposition: Home or Self Care Attending Physician: Anders Mason MD Admitting Physician: Anders Mason MD Referring Physician: Jaylyn Young SE[employer] ACTIVITIES CLERK Vital Signs Most recent to 1 oldest [Reference Range]: Temperature Tympanic 37.6 degC [36.6-38.1 degC] (08/30/14 5:25 PM) Peripheral Pulse 98 bpm Rate [60-100 bpm] (08/30/14 5:25 PM) Blood Pressure 142/80 mmHg [90-140/60-90 mmHg] *HI* (08/30/14 5:25 PM) Most recent to 1 oldest [Reference Range]: SpO2 98 % (08/30/14 5:25 PM) Problem List Condition Effective Dates Status [...] EVENING MEAL Start Date: 03/05/14 Status: Ordered furosemide 20 mg oral tablet 1 tabs, Oral, BID, 0 Refill(s) Start Date: 03/05/14 Status: Ordered irbesartan 75 mg oral tablet 1 tabs, Oral, Daily, # 30 tabs, 0 Refill(s) Start Date: 08/30/14 Status: Ordered Lantus 100 units/mL subcutaneous solution 45, SubCutaneous, Bedtime (once a day), 0 Refill(s) Start Date: 03/05/14 Status: Ordered sodium bicarbonate 650 mg oral tablet 3 tabs, Oral, Daily, # 60 tabs, 0 Refill(s) Start Date: 03/05/14 Status: Ordered Tamiflu 75 mg oral capsule 1 caps, Oral, BID, X 5 days, # 10 caps, 0 Refill(s), Pharmacy: [facility], 1 caps Oral BID,x5 days Start Date: 08/30/14 Stop Date: 09/04/14 Status: Ordered traZODone 50 mg oral tablet [...] FROM LEFT FOOT 3RT THIGH 4CATARACTS REMOVED ERCI Social History Social History Type Response Smoking Status Never smoker Assessment and Plan Extracted from: Title: Office Visit Note-immediate Author: Andesr Mason MD Date: care Assessment/Plan Fever Renal failure Type 1 diabetes mellitus Orders: oseltamivir, 1 caps, Oral, BID, X 5 days, # 10 caps, 0 Refill(s), Pharmacy: [id number], 1 caps Oral BID,x5 days Rapid influenza testing was obtained and was negative. However in view of the high risk circumstance and the high prevalence of influenza as well as typical symptoms, I elected to go ahead and treat with Tamiflu. Discussed expected course and contagiousness. Follow-up if not improving in next few days, or sooner if more acute symptoms.
--- OUTSIDE RECORDS SUMMARY | 2016-11-11 21:27 | XMS REPORT ---
Author Author Jaylyn Young [facility] eClinicalWorks Address Unknown Phone Unavailable Care Team Providers Care Form Press Operator Name Role Phone Jaylyn Young Unavailable Allergies No Known Allergies Problems Problem Type Condition Code Onset Dates Condition Status Problem Diabetes Mellitus Type 2, not stated as uncontrolled 250.00 Active Problem Abdominal pain, unspecified site 789.00 Active Problem Other specified anemias 285.8 Active Problem Chronic kidney disease, stage 4 (severe) N18.4 Active Problem Other specified diabetes mellitus without complications E13.9 Active Problem Essential (primary) hypertension I10 Active Problem Other disorder of menstruation and other abnormal bleeding from female genital tract 626.8 Active Problem Anemia in chronic kidney disease 285.21 Active Problem Mixed hyperlipidemia E78.2 Active Problem Panic disorder without agoraphobia 300.01 Active Problem Major depressive disorder, recurrent episode, moderate 296.32 Active Problem Generalized anxiety disorder 300.02 Active Problem UTI 599.0 Active Problem Mixed hyperlipidemia 272.2 Active Problem Insomnia, unspecified 780.52 Active Medications Medication Code System Code Instructions Start Date End Date Status Dosage Zofran [facility] [address]-88 4 MG Orally every 6 hours as needed Jun 06, 2016 as directed Results No Known Results Summary Purpose eClinicalWorks Submission
--- OUTSIDE RECORDS SUMMARY | 2016-11-11 21:27 | XMS REPORT ---
Author Author Terence Hdez Organization eClinicalWorks Address Unknown Phone Unavailable Care Team Providers Care Transformation Coach Name Role Phone Terence Hdez CP Unavailable Allergies, Adverse Reactions, Alerts Substance [...] Problem Panic disorder without agoraphobia 300.01 Active Assessment Tension-type headache, unspecified, not intractable G44.209 Active Assessment Contracture of muscle, unspecified site M62.40 Active Problem Major depressive disorder, recurrent episode, moderate 296.32 Active Problem Generalized anxiety disorder 300.02 Active Assessment Essential (primary) hypertension I10 Active Problem UTI 599.0 Active Problem Mixed hyperlipidemia 272.2 Active Problem Insomnia, unspecified 780.52 Active Medications Medication Code System Code Instructions Start Date End Date Status Dosage Folic Acid [facility] [address]-24 1 MG Orally Once a day Jul 28, 2015 Aug 13, 2016 1 tablet NovoLog Flexpen [facility] [address]-40 100 UNIT/ML Subcutaneous two to three times a day Mar 16, 2015 5-10 units Ropinirole HCl [facility] [address]-48 0.5 MG Orally Once a day October 25, 2015 1 tablet 1 to 3 hours before bedtime ProAir HFA [facility] [address]-24 108 (90 Base) MCG/ACT Inhalation every 4 hrs Jun 14, 2015 2 puffs as needed Lantus [facility] [address]-72 100 UNIT/ML Subcutaneous Daily 36 units hs Trazodone HCl [facility] [address]-08 100 MG Orally Once a day at bedtime 2 tablets by mouth at bedtime for sleep Venlafaxine HCl [facility] [address]-47 37.5 MG Orally Twice a day. give after dialysis. May 15, 2016 1 tablet with food Furosemide [facility] [address]-91 20 MG Orally Twice a day prn 1 tablet Pen [place] /2" [facility] [address]-86 29G X 12MM subcut with insulin QID Mar 24, 2014 use as directed Zofran ODT [facility] [address]-52 4 MG Orally every 6 hours as needed for nausea Jul 30, 2013 as directed Losartan Potassium [facility] [address]-83 25 MG Orally Once a day hs not defined Amlodipine Besylate [facility] [address]-75 5 MG Orally Once a day 1 tablet Procedures Procedure Coding System Code Date OFFICE VISIT, EST-LOW COMPLEXITY (15 MIN.) CPT-4 96303 May 15, 2016 TEST, IN HOUSE CPT-4 09866 May 15, 2016 [facility] visit Established Patient CPT-4 G0467 May 15, 2016 Vital Signs Date/Time: May 15, 2016 Temperature 98.2 F Height 63 in Weight 192.8 lbs Blood Pressure Diastolic 68 mm Hg Blood Pressure Systolic 118 mm Hg Cardiac Monitoring Heart Rate 89 /min BMI 34.15 Index Oximetry 97 % Respiratory Rate 18 /min Results No Known Results Summary Purpose eClinicalWorks Submission
--- OUTSIDE RECORDS SUMMARY | 2016-11-11 21:27 | XMS REPORT ---
Author Author Latasha Cook [facility] eClinicalWorks Address Unknown Phone Unavailable Care Team Providers Care Scrap Bunch Maker Name Role Phone Latasha Cook CP Unavailable [...] Problem Generalized anxiety disorder 300.02 Active Assessment Viral gastroenteritis A08.4 Active Problem UTI 599.0 Active Problem Mixed hyperlipidemia 272.2 Active Problem Insomnia, unspecified 780.52 Active Medications Medication Code System Code Instructions Start Date End Date Status Dosage Venlafaxine HCl [facility] [address]-36 37.5 MG Orally Twice a day. give after dialysis. May 15, 2016 1 tablet with food Ropinirole HCl [facility] [address]-81 0.5 MG Orally Once a day October 25, 2015 1 tablet 1 to 3 hours before bedtime Zofran ODT [facility] [address]-32 4 MG Orally every 6 hours as needed for nausea Jul 30, 2013 1 tab Furosemide [facility] [address]-20 20 MG Orally Twice a day prn 1 tablet Amlodipine Besylate [facility] [address]-19 5 MG Orally Once a day 1 tablet Trazodone HCl [facility] [address]-70 100 MG Orally Once a day at bedtime 2 tablets by mouth at bedtime for sleep Folic Acid [facility] [address]-90 1 MG Orally Once a day Jul 28, 2015 Aug 13, 2016 1 tablet Pen [place] 1/2" [facility] [address]-15 29G X 12MM subcut with insulin QID Mar 24, 2014 use as directed ProAir HFA [facility] [address]-44 108 (90 Base) MCG/ACT Inhalation every 4 hrs Jun 14, 2015 2 puffs as needed Lantus [facility] [address]-57 100 UNIT/ML Subcutaneous Daily 26 units hs Losartan Potassium [facility] [address]-88 25 MG Orally Once a day hs not defined NovoLog Flexpen [facility] [address]-38 100 UNIT/ML Subcutaneous two to three times a day Mar 16, 2015 5-10 units Procedures Procedure Coding System Code Date OFFICE VISIT, EST-LOW COMPLEXITY (15 MIN.) CPT-4 30859 Jun 05, 2016 [facility] visit Established Patient CPT-4 G0467 Jun 05, 2016 Vital Signs Date/Time: Jun 05, 2016 Temperature 99.6 F Height 63 in Weight 189.0 lbs Blood Pressure Diastolic 68 mm Hg Blood Pressure Systolic 158 mm Hg Cardiac Monitoring Heart Rate 91 /min BMI 33.48 Index Oximetry 98 % Results No Known Results Summary Purpose eClinicalWorks Submission
--- OUTSIDE RECORDS SUMMARY | 2016-11-11 21:27 | XMS REPORT | Referral Summary ---
Author Author [facility] [place], [facility] Care Organization [facility] Address Unknown Phone Unavailable Care Team Providers Care Sap Pi Architect Name Role Phone Angel Hdez Primary Care Physician [phone] Encounter VC Date(s): 08/10/16 - 08/10/16 [facility] [place] [address] [place] [address] Discharge Diagnosis: Ear pain Discharge Disposition: 01-Home or Self Care Attending Physician: Gabo Florez PA-C Admitting Physician: Gabo Florez PA-C Vital Signs Most recent to 1 oldest [Reference Range]: Temperature Tympanic 36.4 degC [36.6-38.1 degC] *LOW* (08/10/16 1:12 PM) Peripheral Pulse 100 bpm Rate [60-100 bpm] (08/10/16 1:12 PM) Blood Pressure 120/82 mmHg [90-140/60-90 mmHg] (08/10/16 1:12 PM) SpO2 97 % (08/10/16 1:12 PM) Problem List Condition Effective Dates Status [...] Pharmacy : [facility] [id number] Start Date: 11/25/14 Status: Ordered amLODIPine 5 mg, Oral, Daily, 0 Refill(s) Start Date: 11/24/15 Status: Ordered HumaLOG KwikPen sliding scale, SubCutaneous, [...] 0 Refill(s) Start Date: 11/24/15 Status: Ordered rOPINIRole 0.5 mg, Oral, Daily, 0.25mg - 0.5mg, 0 Refill(s) Start Date: 11/24/15 Status: Ordered Sensipar 30 mg oral tablet 30 mg 1 tabs, Oral, Daily, # 30 tabs, 0 Refill(s) Start Date: 08/10/16 Status: Ordered traZODone 100 mg oral tablet [...] History Social History Type Response Smoking Status Former smoker1 1Every now and then Assessment and Plan Extracted from: Title: ear pain Author: Gabo Florez PA-C Date: 08/10/16 Assessment/Plan Ear pain No clear signs of infection, if patient developsworsening symptoms with fever or worsening congestion or cough follow-up for additional assessment. Tylenolas needed for fever or pain. Recommend supportive care. Rest. Practice good hand hygiene. Increase fluids. FU with PCP if not improving, worsening symptoms, or as needed. Questions were answered. Patient verbalized understanding. Patient left in stable condition.
--- OUTSIDE RECORDS SUMMARY | 2016-11-11 21:27 | XMS REPORT ---
Author Author Jaylyn Young eClinicalWorks Address Unknown Phone Unavailable Care Team Providers Care Vp Construction Name Role Phone Jaylyn Young Unavailable Allergies No Known Allergies Problems Problem Type Condition ICD-9 Code Onset [...] Instructions Start Date End Date Status Dosage Humalog KwikPen [facility] [address]-79 100 UNIT/ML Subcutaneous 2-3 times a day Jun 08, 2014 5-[address] [facility] [address]-28 0.3-0.1 % Otic Twice a day February 16, 2015 4 drops into affected ear Irbesartan [facility] [address]-79 150 MG Orally Once a day [address] [facility] [address]-37 300 MG Orally Twice a day February 16, 2015February 1 capsule Trazodone HCl [facility] [address]-61 100 Milligram Orally Once a day at bedtime 2 tablets by mouth at bedtime for sleep Lantus [facility] [address]-89 100 UNIT/ML Subcutaneous Daily 45 units hs Diflucan [facility] [address]-04 150 MG Orally x1, may repeat in a week February 16, 2015 1 tablet Pen [place] 1/2" [facility] [address]-27 29G X 12MM subcut with insulin QID Mar 24, 2014 use as directed Furosemide [facility] [address]-52 20 MG Orally Twice a day [address] [facility] [address]-13 40 MG Orally Once a day after supper and 1/2 tablet extra per day as needed for increased anxiety Sep 22, 2013 1/2 tablet Clindamycin Phosphate [facility] [address]-48 1 % Externally BID for a week or until rash is gone February 03, 2015 Apr 04, 2015 1 application to affected area after washing Procedures Procedure Coding System Code Date EAR CULTURE CPT-4 14191 February 16, 2015 Results No Known Results Summary Purpose eClinicalWorks Submission
--- OUTSIDE RECORDS SUMMARY | 2016-11-11 21:27 | XMS REPORT | Referral Summary ---
Author Author [facility] Organization [facility] Address Unknown Phone Unavailable Care Team Providers Care Electronic Resources Librarian Name Role Phone Hector Jalyyn Primary Care Physician [phone] Encounter VC Date(s): 11/22/15 - 11/23/15 [facility] [address] [place] [address] [phone] Discharge Diagnosis: Chronic bilateral lower abdominal pain Discharge Disposition: 01-Home or Self Care Attending Physician: Peewee Billingsley MD Admitting Physician: Peewee Billingsley MD Vital Signs Most recent to 1 oldest [Reference Range]: Temperature Oral 37.1 degC [35.8-37.3 degC] (11/22/15 7:36 PM) Peripheral Pulse 85 bpm Rate [60-100 bpm] (11/23/15 12:13 AM) Heart Rate Monitored 96 bpm [60-100 bpm] (11/22/15 9:28 PM) Respiratory Rate 18 br/min [14-20 br/min] (11/23/15 12:13 AM) Blood Pressure 154/88 mmHg [90-140/60-90 mmHg] *HI* (11/23/15 12:13 AM) Mean Arterial 127 mmHg Pressure, Cuff (11/22/15 9:28 PM) SpO2 93 % (11/23/15 12:13 AM) Problem List Condition Effective Dates Status Health [...] # 18 g, 2 Refill(s), Pharmacy : [id number] Start Date: 11/25/14 Status: Ordered amLODIPine 5 [...] to 1 oldest [Reference Range]: WBC [4.8-10.8 4.8 10*3/uL 10*3/uL] (11/22/15 8:02 PM) RBC [4.00-5.20] 2.65 *LOW* (11/22/15 8:02 PM) Hgb [12.0-16.0 9.1 gm/dL gm/dL] *LOW* (11/22/15 8:02 PM) Hct [37.0-47.0 %] 28.1 % *LOW* (11/22/15 8:02 PM) MCV [82.0-99.0 fL] 106.0 fL *HI* (11/22/15 8:02 PM) MCH [27.0-32.0 pg] 34.3 pg *HI* (11/22/15 8:02 PM) MCHC [32.0-36.0 32.4 gm/dL gm/dL] (11/22/15 8:02 PM) RDW [11.5-14.5 %] 13.8 % (11/22/15 8:02 PM) Platelet [150-400 218 10*3/uL 10*3/uL] (11/22/15 8:02 PM) MPV [9.4-12.4 fL] 10.0 fL (11/22/15 8:02 PM) Immature 0.0 % Granulocytes (11/22/15 8:02 PM) [0.0-1.0 %] Neutrophils [51-75 66 % %] (11/22/15 8:02 PM) Lymphocytes [20-46 25 % %] (11/22/15 8:02 PM) Monocytes [4-11 %] 5 % (11/22/15 8:02 PM) Eosinophils [0-4 %] 3 % (11/22/15 8:02 PM) Basophils [0-2 %] 1 % (11/22/15 8:02 PM) Neutro Absolute 3.14 10*3 [1.90-7.00 10*3] (11/22/15 8:02 PM) Lymph Absolute 1.18 10*3 [0.80-3.30 10*3] (11/22/15 8:02 PM) [place] Absolute 0.26 10*3 [0.30-1.00 10*3] *LOW* (11/22/15 8:02 PM) Eos Absolute 0.16 10*3 [0.00-0.50 10*3] (11/22/15 8:02 PM) Baso Absolute 0.05 10*3 [0.00-0.20 10*3] (11/22/15 8:02 PM) Nucleated RBC 0.0 /100 WBC Automated [0 /100 (11/22/15 8:02 PM) WBC] Chemistry Most recent to 1 oldest [Reference Range]: Sodium Lvl [136-144 137 mEq/L mEq/L] (11/22/15 8:02 PM) Potassium Lvl 4.0 mEq/L [3.6-5.1 mEq/L] (11/22/15 8:02 PM) Chloride [99-109 97 mEq/L mEq/L] *LOW* (11/22/15 8:02 PM) CO2 [22-32 mEq/L] 30 mEq/L (11/22/15 8:02 PM) AGAP [3-20] 10 (11/22/15 8:02 PM) BUN [4-20 mg/dL] 23 mg/dL *HI* (11/22/15 8:02 PM) Glucose Lvl [70-100 146 mg/dL mg/dL] *HI* (11/22/15 8:02 PM) Creatinine Lvl 7.19 mg/dL [0.44-1.03 mg/dL] *HI* (11/22/15 8:02 PM) eGFR [>60] 6 1 *ABN* (11/22/15 8:02 PM) Calcium Lvl 8.4 mg/dL [8.6-10.0 mg/dL] *LOW* (11/22/15 8:02 PM) Albumin Lvl [3.5-4.8 3.6 gm/dL gm/dL] (11/22/15 8:02 PM) Total Protein 6.6 gm/dL [6.1-7.9 gm/dL] (11/22/15 8:02 PM) Globulin [1.9-4.3 3.0 gm/dL gm/dL] (11/22/15 8:02 PM) ALT [14-54 U/L] 22 U/L (11/22/15 8:02 PM) AST [15-41 U/L] 23 U/L (11/22/15 8:02 PM) Alk Phos [26-104 87 U/L U/L] (11/22/15 8:02 PM) Bili Total [0.2-1.2 0.7 mg/dL 2 mg/dL] (11/22/15 8:02 PM) Lipase Lvl [8-48 20 U/L U/L] (11/22/15 8:02 PM) Screen, Negative Urine NPT (11/22/15 9:57 PM) 1Result Comment: Multiply eGFR results by 1.21 for race. 2Result Comment: Naproxen, specifically the metabolite O-desmethylnaproxen, may cause spurious elevation in Total Bilirubin levels. Urinalysis Most recent to 1 oldest [Reference Range]: UA Color Yellow (11/22/15 8:45 PM) UA Appear Sl Cloudy (11/22/15 8:45 PM) UA pH [5.0-8.0] 8.0 (11/22/15 8:45 PM) UA Leuk Est Negative [Negative] (11/22/15 8:45 PM) UA Nitrite Negative [Negative] (11/22/15 8:45 PM) UA Protein Pos 3+ [Negative] *ABN* (11/22/15 8:45 PM) UA Glucose Pos 3+ [Negative] *ABN* (11/22/15 8:45 PM) UA Ketones Negative [Negative] (11/22/15 8:45 PM) UA Urobilinogen Negative [<1.0] (11/22/15 8:45 PM) UA Bili [Negative] Negative (11/22/15 8:45 PM) UA Blood [Negative] Negative (11/22/15 8:45 PM) UA Spec Grav 1.025 [1.003-1.030] (11/22/15 8:45 PM) Type Clean Catch (11/22/15 8:45 PM) UA WBC [0-4] 2-5 (11/22/15 8:45 PM) UA RBC [0-2] 0-2 (11/22/15 8:45 PM) Epithelial Cells 10-20 (11/22/15 8:45 PM) UA Bacteria Rare (11/22/15 8:45 PM) UA Hyal Cast [0-3] 4-6 *ABN* (11/22/15 8:45 PM) UA Mucous Present (11/22/15 8:45 PM) Immunizations No data available for this section [...]
--- OUTSIDE RECORDS SUMMARY | 2016-11-11 21:27 | XMS REPORT | Referral Summary ---
Author Author [facility] Organization [facility] Address Unknown Phone Unavailable Care Team Providers Care Soaping Department Supervisor Name Role Phone Jaylyn Young Primary Care Physician [phone] Encounter VC Date(s): 11/23/15 - 12/02/15 [facility] [address] [place] [address] Discharge Disposition: 01-Home or Self Care Attending Physician: Cate South MD Admitting Physician: Cate South MD Vital Signs Most recent to 1 oldest [Reference Range]: Temperature Axillary 36.6 degC [35.2-36.7 degC] (12/01/15 11:05 AM) Temperature Oral 37.1 degC [35.8-37.3 degC] (12/02/15 4:00 AM) Temperature Skin 36.1 degC [36-37 degC] (12/01/15 5:57 AM) Peripheral Pulse 84 bpm Rate [60-100 bpm] (12/02/15 4:00 AM) Heart Rate Monitored 75 bpm [60-100 bpm] (12/01/15 10:00 AM) Respiratory Rate 16 br/min [14-20 br/min] (12/02/15 4:00 AM) Blood Pressure 148/85 mmHg [90-140/60-90 mmHg] *HI* (12/02/15 4:00 AM) Mean Arterial 83 mmHg Pressure, Cuff (12/01/15 10:00 AM) SpO2 96 % (12/02/15 4:00 AM) Remote Telemetry Ongoing (12/01/15 1:45 PM) Problem List Condition Effective Dates Status Health Status Informant Acute Active pain(Confirmed) Acute Active sinusitis(Confirmed) Alteration in Active nutrition(Confirmed) 1 Anemia(Confirmed) Active Asthma(Confirmed) Active Dialysis Active patient patient(Confirmed) Fluid Active imbalance(Confirmed) [...] # 18 g, 2 Refill(s), Pharmacy : [facility] Start Date: 11/25/14 Status: Ordered amLODIPine 5 [...] breakfast., # 30 tabs, 3 Refill(s), Pharmacy: [facility], 1 tabs Oral Daily,Instr:Take in the morning [...] Refill(s) Start Date: 04/30/15 Status: Ordered Results Blood Gases Most recent to 1 oldest [Reference Range]: pH [7.35-7.45] 7.44 (11/24/15 1:25 PM) pCO2 Art [35-45 44 mmHg mmHg] (11/24/15 1:25 PM) Bicarbonate [22-26 29 mEq/L mEq/L] *HI* (11/24/15 1:25 PM) Base Excess Art 4 [0-2] *HI* (11/24/15 1:25 PM) O2 Sat Art 97.5 % [90.0-97.0 %] *HI* (11/24/15 1:25 PM) pO2 Art [80-100 92 mmHg mmHg] (11/24/15 1:25 PM) LPM Art 2.0 L/min (11/24/15 1:25 PM) O2 Panel Nasal Cannula (11/24/15 1:25 PM) Spec Site Other (11/24/15 1:25 PM) Hematology Most recent to 1 oldest [Reference Range]: WBC [4.8-10.8 6.4 10*3/uL 10*3/uL] (12/02/15 6:39 AM) RBC [4.00-5.20] 3.42 *LOW* (12/02/15 6:39 AM) Hgb [12.0-16.0 11.7 gm/dL gm/dL] *LOW* (12/02/15 6:39 AM) Hct [37.0-47.0 %] 35.9 % *LOW* (12/02/15 6:39 AM) MCV [82.0-99.0 fL] 105.0 fL *HI* (12/02/15 6:39 AM) MCH [27.0-32.0 pg] 34.2 pg *HI* (12/02/15 6:39 AM) MCHC [32.0-36.0 32.6 gm/dL gm/dL] (12/02/15 6:39 AM) RDW [11.5-14.5 %] 14.7 % *HI* (12/02/15 6:39 AM) Platelet [150-400 223 10*3/uL 10*3/uL] (12/02/15 6:39 AM) MPV [9.4-12.4 fL] 10.2 fL (12/02/15 6:39 AM) Immature 0.0 % Granulocytes (11/30/15 2:56 PM) [0.0-1.0 %] Neutrophils [51-75 63 % %] (11/30/15 2:56 PM) Lymphocytes [20-46 24 % %] (11/30/15 2:56 PM) Monocytes [4-11 %] 8 % (11/30/15 2:56 PM) Eosinophils [0-4 %] 5 % *HI* (11/30/15 2:56 PM) Basophils [0-2 %] 1 % (11/30/15 2:56 PM) Neutro Absolute 3.64 10*3 [1.90-7.00 10*3] (11/30/15 2:56 PM) Lymph Absolute 1.36 10*3 [0.80-3.30 10*3] (11/30/15 2:56 PM) [place] Absolute 0.45 10*3 [0.30-1.00 10*3] (11/30/15 2:56 PM) Eos Absolute 0.28 10*3 [0.00-0.50 10*3] (11/30/15 2:56 PM) Baso Absolute 0.04 10*3 [0.00-0.20 10*3] (11/30/15 2:56 PM) Nucleated RBC 0.0 /100 WBC Automated [0 /100 (11/30/15 2:56 PM) WBC] Chemistry Most recent to 1 oldest [Reference Range]: Sodium Lvl [136-144 133 mEq/L mEq/L] *LOW* (12/02/15 6:39 AM) Potassium Lvl 4.1 mEq/L [3.6-5.1 mEq/L] (12/02/15 6:39 AM) Chloride [99-109 97 mEq/L mEq/L] *LOW* (12/02/15 6:39 AM) CO2 [22-32 mEq/L] 23 mEq/L (12/02/15 6:39 AM) AGAP [3-20] 13 (12/02/15 6:39 AM) BUN [4-20 mg/dL] 28 mg/dL *HI* (12/02/15 6:39 AM) Glucose Lvl [70-100 105 mg/dL mg/dL] *HI* (12/02/15 6:39 AM) Creatinine Lvl 9.39 mg/dL [0.44-1.03 mg/dL] *HI* (12/02/15 6:39 AM) eGFR [>60] 5 1 *ABN* (12/02/15 6:39 AM) Calcium Lvl 9.3 mg/dL [8.6-10.0 mg/dL] (12/02/15 6:39 AM) Albumin Lvl [3.5-4.8 3.5 gm/dL gm/dL] (12/02/15 6:39 AM) Total Protein 7.0 gm/dL [6.1-7.9 gm/dL] (12/02/15 6:39 AM) Globulin [1.9-4.3 3.5 gm/dL gm/dL] (12/02/15 6:39 AM) ALT [14-54 U/L] 17 U/L (12/02/15 6:39 AM) AST [15-41 U/L] 44 U/L *HI* (12/02/15 6:39 AM) Alk Phos [26-104 85 U/L U/L] (12/02/15 6:39 AM) Bili Total [0.2-1.2 0.6 mg/dL 2 mg/dL] (12/02/15 6:39 AM) Magnesium Lvl 2.2 mg/dL [1.8-2.5 mg/dL] (11/25/15 4:03 AM) Phosphorus [2.4-4.7 6.1 mg/dL 3 mg/dL] *HI* (12/02/15 6:39 AM) Lipase Lvl [8-48 20 U/L U/L] (11/23/15 8:57 PM) Screen, Negative Urine NPT (12/01/15 6:02 AM) Blood Glucose, 102 mg/dL Capillary [70-100 *HI* mg/dL] (12/02/15 11:38 AM) 1Result Comment: Multiply eGFR results by 1.21 for race. 2Result Comment: Naproxen, specifically the metabolite O-desmethylnaproxen, may cause spurious elevation in Total Bilirubin levels. 3Result Comment: High dosages of liposomal Amphotericin B (AmBisome) therapy or other drug preparations that use a liposomal envelope to facilitate drug delivery may cause falsely elevated results for phosphorus. Urinalysis Most recent to 1 oldest [Reference Range]: UA Color Bri[place] *ABN* (11/26/15 3:55 PM) UA Appear Cloudy *ABN* (11/26/15 3:55 PM) UA pH [5.0-8.0] 8.0 (11/26/15 3:55 PM) UA Leuk Est Negative [Negative] (11/26/15 3:55 PM) UA Nitrite Negative [Negative] (11/26/15 3:55 PM) UA Protein Pos 3+ [Negative] *ABN* (11/26/15 3:55 PM) UA Glucose Pos 3+ [Negative] *ABN* (11/26/15 3:55 PM) UA Ketones Pos 1+ [Negative] *ABN* (11/26/15 3:55 PM) UA Urobilinogen Negative [<1.0] (11/26/15 3:55 PM) UA Bili [Negative] Negative (11/26/15 3:55 PM) UA Blood [Negative] Negative (11/26/15 3:55 PM) UA Spec Grav >=1.045 [1.003-1.030] *ABN* (11/26/15 3:55 PM) Type Clean Catch (11/26/15 3:55 PM) UA WBC [0-4] 2-5 (11/26/15 3:55 PM) UA RBC [0-2] 2-5 (11/26/15 3:55 PM) Epithelial Cells 20-50 (11/26/15 3:55 PM) UA Bacteria Occasional *ABN* (11/26/15 3:55 PM) Crystals Amorphous (11/26/15 3:55 PM) UA Hyal Cast [0-3] 1-3 (11/26/15 3:55 PM) UA Mucous Present (11/26/15 3:55 PM) Immunizations No data available for this section Procedures Procedure Date Related Diagnosis Body Site Cholecystectomy Laparoscopic Resident1 12/01/15 Catheterization Left Heart with Coronary 11/28/15 Angiography (Right, Groin)2 Arterial puncture, withdrawal of blood for 11/24/15 diagnosis Creation Fistula Arterial Venous Arm (Left)3 03/08/14 [...]
--- OUTSIDE RECORDS SUMMARY | 2016-11-11 21:27 | XMS REPORT ---
Author Author Jaylyn Young [facility] [employer] Address Unknown Phone Unavailable Care Team Providers Care Computer Teacher Name Role Phone Jaylyn Young Unavailable Allergies [...]
--- OUTSIDE RECORDS SUMMARY | 2016-11-11 21:28 | XMS REPORT ---
Author Author Terence Hdez Organization [employer] Address Unknown Phone Unavailable Care Team Providers Care Nurses' Association Counselor Name Role Phone Terence Hdez CP Unavailable Allergies No Known Allergies Problems [...] Panic disorder without agoraphobia 300.01 Active Assessment Contracture of muscle, unspecified site M62.40 Active Problem Major depressive disorder, recurrent episode, moderate 296.32 Active Problem Generalized anxiety disorder 300.02 Active Assessment Essential (primary) hypertension I10 Active Problem UTI 599.0 Active Problem Mixed hyperlipidemia 272.2 Active Problem Insomnia, unspecified 780.52 Active Medications Medication Code System Code Instructions Start Date End Date Status Dosage Losartan Potassium [facility] [address]-35 25 MG Orally Once a day hs not defined NovoLog Flexpen [facility] [address]-17 100 UNIT/ML Subcutaneous two to three times a day Mar 16, 2015 5-10 units Ropinirole HCl [facility] [address]-14 0.5 MG Orally Once a day October 25, 2015 1 tablet 1 to 3 hours before bedtime Pen [place] 1/2" [facility] [address]-02 29G X 12MM subcut with insulin QID Mar 24, 2014 use as directed Zofran ODT [facility] [address]-29 4 MG Orally every 6 hours as needed for nausea Jul 30, 2013 as directed Amlodipine Besylate [facility] [address]-47 5 MG Orally Once a day 1 tablet Trazodone HCl [facility] [address]-18 100 MG Orally Once a day at bedtime 2 tablets by mouth at bedtime for sleep Folic Acid [facility] [address]-87 1 MG Orally Once a day Jul 28, 2015 Aug 13, 2016 1 tablet Venlafaxine HCl [facility] [address]-50 37.5 MG Orally Twice a day. give after dialysis. May 15, 2016 1 tablet with food ProAir HFA [facility] [address]-32 108 (90 Base) MCG/ACT Inhalation every 4 hrs Jun 14, 2015 2 puffs as needed Furosemide [facility] [address]-93 20 MG Orally Twice a day prn 1 tablet Lantus [facility] [address]-32 100 UNIT/ML Subcutaneous Daily 36 units hs Procedures Procedure Coding System Code Date COMPREHENSIVE METABOLIC PANEL CPT-4 08116 May 15, 2016 CREATINE KINASE (CPK) CPT-4 01543 May 15, 2016 COMPLETE CBC W/AUTO DIFF WBC CPT-4 21068 May 15, 2016 TSH CPT-4 74882 May 15, 2016 Results No Known Results Summary Purpose eClinicalWorks Submission
--- OUTSIDE RECORDS SUMMARY | 2016-11-11 21:28 | XMS REPORT ---
Author Author Jaylyn Young [facility] [employer] Address Unknown Phone Unavailable Care Team Providers Care Filter Press Supervisor Name Role Phone Jaylyn Young Unavailable Allergies [...] Instructions Start Date End Date Status Dosage Pen [place] 1/2" [facility] [address] 29G X 12MM subcut with insulin QID Mar 24, 2014 Active use as directed Vital Signs Date/Time: Jun 22, 2014 Height 63 inches Weight 196.0 lbs Temperature 97.8 F Blood Pressure Diastolic 88 mm Hg Blood Pressure Systolic 146 mm Hg Cardiac Monitoring Heart Rate 80 Beats per Minute BMI 34.72 Index Respiratory Rate 16 per Minute Results No Known Results Summary Purpose eClinicalWorks Submission
--- OUTSIDE RECORDS SUMMARY | 2016-11-11 21:28 | XMS REPORT ---
Author Author Jaylyn Young [facility] [employer] Address Unknown Phone Unavailable Care Team Providers Care Imposer Name Role Phone Jaylyn Young Unavailable Allergies [...] Instructions Start Date End Date Status Dosage Diflucan [facility] [address]-18 150 MG Orally Once a day Jul 14, 2014 Active 1 tablet Vital Signs Date/Time: Jun 22, 2014 Height 63 inches Weight 196.0 lbs Temperature 97.8 F Blood Pressure Diastolic 88 mm Hg Blood Pressure Systolic 146 mm Hg Cardiac Monitoring Heart Rate 80 Beats per Minute BMI 34.72 Index Respiratory Rate 16 per Minute Results No Known Results Summary Purpose eClinicalWorks Submission
--- OUTSIDE RECORDS SUMMARY | 2016-11-11 21:28 | XMS REPORT ---
Author Author Jaylyn Young [facility] [employer] Address Unknown Phone Unavailable Care Team Providers Care Train Caller Name Role Phone Jaylyn Young Unavailable Allergies [...] disorder 300.02 Active Problem UTI 599.0 Active Medications No Known Medications Results No Known Results Summary Purpose eClinicalWorks Submission
--- OUTSIDE RECORDS SUMMARY | 2016-11-11 21:28 | XMS REPORT ---
Author Author Jaylyn Young [facility] e[employer] Address Unknown Phone Unavailable Care Team Providers Care Tank Shop Supervisor Name Role Phone Jaylyn Young Unavailable [...] Date End Date Status Dosage Diflucan [facility] [address]-30 150 MG Orally x1, may repeat in a week February 16, 2015 1 tablet Results No Known Results Summary Purpose eClinicalWorks Submission
--- OUTSIDE RECORDS SUMMARY | 2016-11-11 21:28 | XMS REPORT | Referral Summary ---
Author Author [facility] Organization [facility] Address Unknown Phone Unavailable Care Team Providers Care Lighting Director Name Role Phone HectorJaylyn gamez Primary Care Physician [phone] Encounter VC Date(s): 05/25/15 - 05/25/15 [facility] [address] [place] [address] Discharge Diagnosis: Gastroenteritis Discharge Disposition: 01-Home or Self Care Attending Physician: Gabo Florez PA-C Admitting Physician: Gabo Florez PA-C Vital Signs Most recent to 1 oldest [Reference Range]: Temperature Tympanic 37.3 degC [36.6-38.1 degC] (05/25/15 4:43 PM) Peripheral Pulse 100 bpm Rate [60-100 bpm] (05/25/15 4:43 PM) Blood Pressure 144/80 mmHg [90-140/60-90 mmHg] *HI* (05/25/15 4:43 PM) SpO2 94 % (05/25/15 4:43 PM) Problem List Condition Effective Dates Status Health Status Informant Acute Active pain(Confirmed) Acute Active sinusitis(Confirmed) Alteration in Active nutrition(Confirmed) 1 Anemia(Confirmed) Active Asthma(Confirmed) Active Dialysis Active patient patient(Confirmed) Fluid Active imbalance(Confirmed) 2 Impaired gas Active exchange(Confirmed)3 2011 Active infection(Confirmed) Bone 2010 Active infection(Confirmed) [...] # 18 g, 2 Refill(s), Pharmacy : [facility] Start Date: 11/25/14 Status: Ordered amLODIPine 5 [...] breakfast., # 30 tabs, 3 Refill(s), Pharmacy: [facility] [id number], 1 tabs Oral Daily,Instr:Take in the morning [...] then Assessment and Plan Extracted from: Title: fever, diarrhea, nausea Author: Gabo Florez PA-C Date: Assessment/Plan Gastroenteritis She felt she would be able to keep hydrated;we discussed reporting to emergency room she required IV fluids. I also recommended follow- up with her primary care physician if her symptoms do not improve by tomorrow or the next day;we discussed discussing with heralternatives fortreatment ofrecurrentnausea. Diagnosis and treatment discussed. Patient advised to follow up with PCP in 2-3 days. Patient stable upon discharge, alert and orientated with no apparent distress, and indicated understanding of discharge instructions. If symptoms worsen at any time, patient will go to the nearest ER for further evaluation. Vomiting Patient was given Zofran in the office, and a prescription for home use. As above. Orders: ondansetron, 8 mg 1 tabs, Oral, QID, X 7 days, # 28 tabs, 0 Refill(s) , Pharmacy: [facility] [id number], 1 tabs Oral QID,x7 days
--- OUTSIDE RECORDS SUMMARY | 2016-11-11 21:28 | XMS REPORT ---
Author Author Jaylyn Young [facility] [employer]Works Address Unknown Phone Unavailable Care Team Providers Care De Icer Name Role Phone Jaylyn Young Unavailable Allergies [...]
--- OUTSIDE RECORDS SUMMARY | 2016-11-11 21:28 | XMS REPORT ---
Author Author Jaylyn Young [facility] [employer] Address Unknown Phone Unavailable Care Team Providers Care Turning Machine Operator Name Role Phone Jaylyn Young Unavailable [...]
--- OUTSIDE RECORDS SUMMARY | 2016-11-11 21:28 | XMS REPORT | Referral Summary ---
Author Author [facility] Organization [facility] Address Unknown Phone Unavailable Care Team Providers Care Brewing Technician Name Role Phone HectorJaylyn gamez Primary Care Physician [phone] Encounter VC Date(s): 05/25/15 - 05/25/15 [facility] [address] [place] [address] Discharge Disposition: 01-Home or Self Care Attending [...] Active patient patient(Confirmed) Impaired gas Active exchange(Confirmed)1 2011 Active infection(Confirmed) 2010 Active infection(Confirmed) Knowledge Active deficit(Confirmed)2 Pelvic [...] # 18 g, 2 Refill(s), Pharmacy : [facility] [id number] Start Date: 11/25/14 Status: Ordered Epogen 10,000 [...] 0 Refill(s) Start Date: 04/30/15 Status: Ordered Zofran 8 mg oral tablet 8 mg 1 tabs, Oral, QID, X 7 days, # 28 tabs, 0 Refill(s), Pharmacy: [facility] [id number], 1 tabs Oral QID,x7 days Start Date: 05/25/15 Stop Date: 06/01/15 Status: Ordered Results No data available for [...]
--- OUTSIDE RECORDS SUMMARY | 2016-11-11 21:28 | XMS REPORT ---
Author Jaylyn Persaud [employer] Address Unknown Phone Unavailable Care Team Providers Care Signaling Design Engineer Name Role Phone Jaylyn Young Unavailable Allergies [...] Problem Other specified anemias 285.8 Active Assessment Restless legs syndrome G25.81 Active Assessment Other specified anemias D64.89 Active Assessment Major depressive disorder, recurrent, moderate F33.1 Active Problem Mixed hyperlipidemia 272.2 Active Medications Medication Code System Code Instructions Start Date End Date Status Dosage NovoLog Flexpen [facility] [address]-43 100 UNIT/ML Subcutaneous two to three times a day Mar 16, 2015 5-10 units Trazodone HCl [facility] [address]-99 100 Milligram Orally Once a day at bedtime 2 tablets by mouth at bedtime for sleep ProAir HFA [facility] [address]-77 108 (90 Base) MCG/ACT Inhalation every 4 hrs Jun 14, 2015 2 puffs as needed Pen [place] 1/2" [facility] [address]-04 29G X 12MM subcut with insulin QID Mar 24, 2014 use as directed Lantus [facility] [address]-69 100 UNIT/ML Subcutaneous Daily 45 units hs Losartan Potassium [facility] [address]-29 25 MG Orally Once a day hs not defined Furosemide [facility] [address]-00 20 MG Orally Twice a day 1 tablet Amlodipine Besylate [facility] [address]-31 5 MG Orally Once a day 1 tablet Zofran ODT [facility] [address]-54 4 MG Orally every 6 hours as needed for nausea Jul 30, 2013 as directed Latuda [facility] [address]-93 40 MG Orally Once a day after supper and 1/2 tablet extra per day as needed for increased anxiety Sep 22, 2013 1/2 tablet Procedures Procedure Coding System Code Date FOLATE- VIT B12 AND FOLATE CPT-4 91315 Jul 01, 2015 VITAMIN B12 CPT-4 77918 Jul 01, 2015 VITAMIN D 25 HYDROXY CPT-4 97296 Jul 01, 2015 TSH CPT-4 91567 Jul 01, 2015 CREATINE KINASE (CPK) CPT-4 28164 Jul 01, 2015 Results No Known Results Summary Purpose eClinicalWorks Submission
--- OUTSIDE RECORDS SUMMARY | 2016-11-11 21:28 | XMS REPORT ---
Author Author Jaylyn Young eClinicalWorks Address Unknown Phone Unavailable Care Team Providers Care Stationary Steam Engineer Name Role Phone Jaylyn Young Unavailable [...] Problem Other specified anemias 285.8 Active Assessment Chronic kidney disease, Stage IV (severe) 585.4 Active Assessment Other specified anemias 285.8 Active Problem Mixed hyperlipidemia 272.2 Active Medications Medication Code System Code Instructions Start Date End Date Status Dosage Procrit [facility] [address]-26 31065 UNIT/ML Injection once weekly Apr 28, 2014 Active as directed Trazodone HCl [facility] [address]-22 100 Milligram Orally Once a day Active 2 tablets by mouth at bedtime for sleep Lovastatin [facility] [address]-52 20 MG Orally Once a day Sep 16, 2012 Active 1 tablet with a meal Zofran ODT [facility] [address]-78 4 MG Orally every 6 hours as needed for nausea Jul 30, 2013 Active as directed Latuda [facility] [address]-38 40 MG Orally Once a day after supper and 1/2 tablet extra per day as needed for increased anxiety Sep 22, 2013 Active 1 /2 tablet Tri-Sprintec [facility] [address]-07 0.18/0.215/0.25 MG-35 MCG Orally Once a day Active 1 tablet Apidra [facility] [address]-05 100 UNIT/ML Injection 2-3 times a day Active 5-10 units Ranitidine HCl [facility] [address]-76 300 MG Orally once a day PRN January 06, 2013 Active as directed Levalbuterol HCl [facility] [address]-60 1.25 MG/3ML Inhalation Three times a day Jul 28, 2013 Active 3 ml Lantus [facility] [address]-07 100 UNIT/ML Subcutaneous Daily Active 45 units hs Furosemide [facility] [address]-77 20 MG Orally Twice a day Active 1 tablet Pen [place] 1/2" [facility] [address] 29G X 12MM subcut with insulin QID Mar 24, 2014 Active use as directed Procedures Procedure Coding System Code Date HEMATOCRIT- HEMOGLOBIN AND HEMATOCRIT CPT-4 99013 May 04, 2014 RENAL FUNCTION PANEL CPT-4 05948 May 04, 2014 HEMOGLOBIN-HEMOGLOBIN AND HEMATOCRIT CPT-4 01951 May 04, 2014 VITAMIN B12 CPT-4 06174 May 04, 2014 Vital Signs Date/Time: Apr 28, 2014 Height 63 inches Weight 196.8 lbs Temperature 98.8 F Blood Pressure Diastolic 82 mm Hg Blood Pressure Systolic 128 mm Hg Cardiac Monitoring Heart Rate 80 Beats per Minute BMI 34.86 Index Respiratory Rate 16 per Minute Results No Known Results Summary Purpose eClinicalWorks Submission
--- OUTSIDE RECORDS SUMMARY | 2016-11-11 21:28 | XMS REPORT ---
Author Author Jaylyn Young [facility] eClinicalWorks Address Unknown Phone Unavailable Care Team Providers Care Engine Lathe Set Up Operator Name Role Phone Jaylyn Young Unavailable [...]
--- OUTSIDE RECORDS SUMMARY | 2016-11-11 21:28 | XMS REPORT ---
Author Author Jaylyn Young [facility] eClinicalWorks Address Unknown Phone Unavailable Care Team Providers Care Speech Language Assistant Name Role Phone Jaylyn Young Unavailable Allergies [...] End Date Status Dosage Humalog KwikPen [facility] [address]-58 100 UNIT/ML Subcutaneous 2-3 times a day Jun 08, 2014 Active 5-10 units Apidra [facility] [address]-13 100 UNIT/ML Injection 2-3 times a day Inactive 5-10 units Vital Signs Date/Time: May 05, 2014 Height 63 inches Weight 195.8 lbs Temperature 98.8 F Blood Pressure Diastolic 70 mm Hg Blood Pressure Systolic 154 mm Hg Cardiac Monitoring Heart Rate 82 Beats per Minute BMI 34.68 Index Respiratory Rate 16 per Minute Results No Known Results Summary Purpose eClinicalWorks Submission
--- OUTSIDE RECORDS SUMMARY | 2016-11-11 21:28 | XMS REPORT ---
Author Author Jaylyn Young [facility] eClinicalWorks Address Unknown Phone Unavailable Care Team Providers Care Turfgrass Technician Name Role Phone Jaylyn Young Unavailable Allergies [...]
--- OUTSIDE RECORDS SUMMARY | 2016-11-11 21:28 | XMS REPORT | Referral Summary ---
Author Author [facility] Organization [facility] Address Unknown Phone Unavailable Care Team Providers Care Boring Machine Set Up Operator Jig Name Role Phone Hector, Jaylyn Primary Care Physician [phone] Encounter VC Date(s): 04/22/15 - 04/22/15 [facility] [address] [place] [address] Discharge Diagnosis: Folliculitis Discharge Diagnosis: Dialysis patient Discharge Diagnosis: Low back pain Discharge Disposition: 01-Home or Self Care Attending Physician: Gabo Florez PA-C Admitting Physician: Gabo Florez PA-C Vital Signs Most recent to 1 oldest [Reference Range]: Temperature Tympanic 36.3 degC [36.6-38.1 degC] *LOW* (04/22/15 4:41 PM) Peripheral Pulse 103 bpm Rate [60-100 bpm] *HI* (04/22/15 4:41 PM) Blood Pressure 146/100 mmHg [90-140/60-90 mmHg] *HI* (04/22/15 4:41 PM) SpO2 94 % (04/22/15 4:41 PM) Problem List Condition Effective Dates Status [...] Refill(s), Pharmacy : [facility] Start Date: 11/25/14 Status: Ordered Epogen 10,000 [...] then Assessment and Plan Extracted from: Title: folliculitis Author: Gabo Florez PA-C Date: 04/22/15 Assessment/Plan 1.Folliculitis Take doxycycline and use mupirocin as directed. Do not shave legs and discard razor. Contact primary care as needed for pain. 2.Dialysis patient complicated the medication choices for treatment 3.Low back pain Tylenol #3 as needed for pain. follow up with primary care if symptoms worsen. Orders: doxycycline, 100 mg 1 tabs, Oral, BID, X 7 days, # 14 tabs, 0 Refill(s ), Pharmacy: [id number], 1 tabs Oral BID,x7 days mupirocin topical, 1 grant, Topical, TID, X 7 days, # 90 g, 0 Refill(s), Pharmacy: [facility] [id number] mupirocin topical, 1 grant, Topical, TID, X 7 days, # 90 g, 0 Refill(s), Pharmacy: [facility] [id number] Addendum skin cultures done [facility] negative by Gabo Florez PA-C on April 26, 2015 15:37:33 CDT
--- OUTSIDE RECORDS SUMMARY | 2016-11-11 21:28 | XMS REPORT ---
Author Author Nicolasa Mandujano [facility] eClinicalWorks Address Unknown Phone Unavailable Care Team Providers Care Financial Supervisor Name Role Phone Nicolasa Mandujano CP Unavailable Allergies, Adverse Reactions, Alerts Substance [...] Start Date End Date Status Dosage Procrit [facility] [address]-40 31777 UNIT/ML Injection once weekly Apr 28, 2014 Active as directed Trazodone HCl [facility] [address]-02 100 Milligram Orally Once a day Active 2 tablets by mouth at bedtime for sleep Levalbuterol HCl [facility] [address]-32 1.25 MG/3ML Inhalation Three times a day Jul 28, 2013 Active 3 [address] Tri-Spr[address]c [facility] [address]-33 0.18/0.215/0.25 MG-35 MCG Orally Once a day Active [address] [facility] [address]-34 100 UNIT/ML Subcutaneous 2-3 times a day Jun 08, 2014 Active 5-[address] [facility] [address]-63 40 MG Orally Once a day after supper and 1/2 tablet extra per day as needed for increased anxiety Sep 22, 2013 Active 1 /[address] [facility] [address]-98 20 MG Orally Once a day Sep 16, 2012 Active 1 tablet with a meal Lantus [facility] [address]-74 100 UNIT/ML Subcutaneous Daily Active 45 [address] [facility] [address]-00 4 MG Orally every 6 hours as needed for nausea Jul 30, 2013 Active as directed Furosemide [facility] [address]-01 20 MG Orally Twice a day Active 1 tablet Pen [place] /2" [facility] [address]45[address] 29G X 12MM subcut with insulin QID Mar 24, 2014 Active use as directed Ranitidine HCl [facility] [address]-77 300 MG Orally once a day PRN January 06, 2013 Active as directed Procedures Procedure Coding System Code Date OFFICE VISIT, EST-MOD. COMPLEXITY (25 MIN) CPT-4 02213 Jun 22, 2014 Vital Signs Date/Time: Jun 22, 2014 Height 63 inches Weight 196.0 lbs Temperature 97.8 F Blood Pressure Diastolic 88 mm Hg Blood Pressure Systolic 146 mm Hg Cardiac Monitoring Heart Rate 80 Beats per Minute BMI 34.72 Index Respiratory Rate 16 per Minute Results No Known Results Summary Purpose eClinicalWorks Submission
--- OUTSIDE RECORDS SUMMARY | 2016-11-11 21:28 | XMS REPORT ---
Author Author Martha Jamil Organization eClinicalWorks Address Unknown Phone Unavailable Care Team Providers Care Elevator Inspector Name Role Phone Martha Jamil CP Unavailable [...] Start Date End Date Status Dosage Latuda [facility] [address]-82 40 MG Orally Once a day after supper and 1/2 tablet extra per day as needed for increased anxiety Sep 22, 2013 1/2 tablet Results No Known Results Summary Purpose eClinicalWorks Submission
--- OUTSIDE RECORDS SUMMARY | 2016-11-11 21:28 | XMS REPORT ---
Author Author Jaylyn Young [facility] eClinicalWorks Address Unknown Phone Unavailable Care Team Providers Care Hris Manager Name Role Phone Jaylyn Young Unavailable Allergies [...] Date End Date Status Dosage ProAir HFA [facility] [address]-97 108 (90 Base) MCG/ACT Inhalation every 4 hrs Jun 14, 2015 2 puffs as needed Results No Known Results Summary Purpose eClinicalWorks Submission
--- OUTSIDE RECORDS SUMMARY | 2016-11-11 21:28 | XMS REPORT ---
Author Jaylyn Persaud eClinicalWorks Address Unknown Phone Unavailable Care Team Providers Care Unit Aid Name Role Phone Jaylyn Young CP Unavailable Allergies, Adverse Reactions, Alerts Substance Reaction Event Type Azithromycin hives Drug Allergy Problems Problem Type Condition Code Onset Dates Condition Status Problem Major depressive disorder, recurrent episode, moderate 296.32 Active Problem UTI 599.0 Active Problem Generalized anxiety disorder 300.02 Active Assessment Pneumonia due to other specified bacteria J15.8 Active Problem Mixed hyperlipidemia 272.2 Active Problem [...] Start Date End Date Status Dosage Pen [place] 1/2" [facility] [address]-81 29G X 12MM subcut with insulin QID Mar 24, 2014 use as directed Furosemide [facility] [address]-85 20 MG Orally Twice a day 1 tablet NovoLog Flexpen [facility] [address]-25 100 UNIT/ML Subcutaneous two to three times a day Mar 16, 2015 5-10 units Losartan Potassium [facility] [address]-45 25 MG Orally Once a day hs not defined Trazodone HCl [facility] [address]-01 100 Milligram Orally Once a day at bedtime 2 tablets by mouth at bedtime for sleep Lantus [facility] [address]-21 100 UNIT/ML Subcutaneous Daily 45 units hs Latuda [facility] [address]-41 40 MG Orally Once a day after supper and 1/2 tablet extra per day as needed for increased anxiety Sep 22, 2013 1/2 tablet Procedures Procedure Coding System Code Date OFFICE VISIT, EST-LOW COMPLEXITY (15 MIN.) CPT-4 55108 May 12, 2015 [facility] visit Established Patient CPT-4 G0467 May 12, 2015 Vital Signs Date/Time: May 12, 2015 Height 63 in Weight 188 lbs Temperature 98.3 F Blood Pressure Diastolic 80 mm Hg Blood Pressure Systolic 128 mm Hg Cardiac Monitoring Heart Rate 100 /min BMI 33.30 Index Oximetry 98 % Respiratory Rate 20 /min Results No Known Results Summary Purpose eClinicalWorks Submission
--- OUTSIDE RECORDS SUMMARY | 2016-11-11 21:28 | XMS REPORT ---
Author Author Jaylyn Young [facility] eClinicalWorks Address Unknown Phone Unavailable Care Team Providers Care Psychologist Chief Name Role Phone Jaylyn Young Unavailable Allergies [...] Date End Date Status Dosage Folic Acid [facility] [address]-46 1 MG Orally Once a day Jul 28, 2015 February 23, 2016 1 tablet Vitamin D3 [facility] [address]-64 5000 UNIT Orally Once a day Jul 28, 2015 February 23, 2016 1 tablet Results No Known Results Summary Purpose eClinicalWorks Submission
--- OUTSIDE RECORDS SUMMARY | 2016-11-11 21:28 | XMS REPORT | Referral Summary ---
Author Organization Unknown Address Unknown Phone Unavailable Care Team Providers Care Applications Sales Representative Name Role Phone Jaylyn Young Primary Care Physician [phone] Encounter VC Date(s): 10/20/14 - 10/20/14 [facility] [place], [place] [address] Discharge Diagnosis: Acute URI Discharge Disposition: Home or Self Care Attending Physician: Davy Mckee JR, MD, FAAFP Admitting Physician: Davy Mckee JR, MD, FAAFP Referring Physician: Jaylyn Young TEAMCENTER CONSULTANT Vital Signs Most recent to 1 oldest [Reference Range]: Temperature Tympanic 37.4 degC [36.6-38.1 degC] (10/20/14 5:02 PM) Peripheral Pulse 90 bpm Rate [60-100 bpm] (10/20/14 5:02 PM) Blood Pressure 98/64 mmHg [90-140/60-90 mmHg] (10/20/14 5:02 PM) Most recent to 1 oldest [Reference Range]: SpO2 97 % (10/20/14 5:02 PM) Problem List Condition Effective Dates Status [...] and Plan Extracted from: Title: Office Visit Note - URI Author: Davy Mckee JR, MD, FAAFP Date: Assessment/Plan Acute URI 1. Counseled regarding diagnosis, natural history, pathophysiology, methods of treating, and expected results; patient to return if not improving as expected or new symptoms arise. Gave reassurance abx not needed currently. 2. Recommend OTC Mucinex D or similar per box instructions as needed for congestion, drainage, and cough. 3. Recommend OTC Tylenol and/or Ibuprofen per box instructions as needed for fever, myalgias, headache. 4. Recommend OTC Delsym per box instructions as needed for cough, or the Rx she already has at home. 5. Recommended throat lozenges or honey prn for scratchy throat. 6. Encourage adequate rest and fluid intake Ordered: Office Visit Level 3 Est 41632
--- OUTSIDE RECORDS SUMMARY | 2016-11-11 21:28 | XMS REPORT ---
Author Author Jaylyn Young [facility] eClinicalWorks Address Unknown Phone Unavailable Care Team Providers Care Coal Handler Name Role Phone Jaylyn Young Unavailable Allergies [...] 300.02 Active Problem UTI 599.0 Active Medications Medication Code System Code Instructions Start Date End Date Status Dosage Doxycycline Hyclate [facility] [address]-69 100 MG Orally Twice a day May 02, 2016 May 09, 2016 1 tablet Results No Known Results Summary Purpose eClinicalWorks Submission
--- OUTSIDE RECORDS SUMMARY | 2016-11-11 21:29 | XMS REPORT ---
Author Author Jaylyn Young [facility] eClinicalWorks Address Unknown Phone Unavailable Care Team Providers Care Real Estate Executive Assistant Name Role Phone Jaylyn Young Unavailable [...] Date End Date Status Dosage NovoLog Flexpen [facility] [address]-78 100 UNIT/ML Subcutaneous two to three times a day Mar 16, 2015 5-10 units Results No Known Results Summary Purpose eClinicalWorks Submission
--- OUTSIDE RECORDS SUMMARY | 2016-11-11 21:29 | XMS REPORT ---
Author Author Maricruz Dawkins Organization eClinicalWorks Address Unknown Phone Unavailable Care Team Providers Care Sheet Metal Duct Installer Helper Name Role Phone Maricruz Dawkins CP Unavailable Allergies, Adverse Reactions, Alerts Substance [...] Problem Generalized anxiety disorder 300.02 Active Assessment Cough R05 Active Problem UTI 599.0 Active Medications Medication Code System Code Instructions Start Date End Date Status Dosage Lantus [facility] [address]-14 100 UNIT/ML Subcutaneous Daily 36 units hs Fluconazole [facility] [address]-47 100 MG Orally take today, one time only May 01, 2016 1 tablet NovoLog Flexpen [facility] [address]-74 100 UNIT/ML Subcutaneous two to three times a day Mar 16, 2015 5-10 units ProAir HFA [facility] [address]-99 108 (90 Base) MCG/ACT Inhalation every 4 hrs Jun 14, 2015 2 puffs as needed Furosemide [facility] [address]-77 20 MG Orally Twice a day prn 1 tablet Augmentin [facility] [address]-23 500-125 MG Orally once a day May 01, 2016 May 11, 2016 1 tablet Folic Acid [facility] [address]-10 1 MG Orally Once a day Jul 28, 2015 Aug 13, 2016 1 tablet Trazodone HCl [facility] [address]-79 100 MG Orally Once a day at bedtime 2 tablets by mouth at bedtime for sleep Amlodipine Besylate [facility] [address]-77 5 MG Orally Once a day 1 tablet Pen [place] 1/2" [facility] [address]-47 29G X 12MM subcut with insulin QID Mar 24, 2014 use as directed Losartan Potassium [facility] [address]-31 25 MG Orally Once a day hs not defined Zofran ODT [facility] [address]-61 4 MG Orally every 6 hours as needed for nausea Jul 30, 2013 as directed Ropinirole HCl [facility] [address]-79 0.5 MG Orally Once a day October 25, 2015 1 tablet 1 to 3 hours before bedtime Procedures Procedure Coding System Code Date OFFICE VISIT, EST-LOW COMPLEXITY (15 MIN.) CPT-4 87156 May 01, 2016 [facility] visit Established Patient CPT-4 G0467 May 01, 2016 Vital Signs Date/Time: May 01, 2016 Temperature 97.9 F Height 63 in Weight 185 lbs Blood Pressure Diastolic 78 mm Hg Blood Pressure Systolic 110 mm Hg Cardiac Monitoring Heart Rate 84 /min BMI 32.77 Index Oximetry 98 % Respiratory Rate 16 /min Results Name Result Date Reference Range Unit Abnormality Flag X ray : CHEST PA LATERAL Summary Purpose eClinicalWorks Submission
--- OUTSIDE RECORDS SUMMARY | 2016-11-11 21:29 | XMS REPORT | Continuity of Care Document ---
Author Author [facility] Organization [facility] Address Unknown Phone Unavailable Support Name Relationship Address Phone SURAJ GREER SYSTEM DISPATCHER Caregiver [address] [place] [address] Unavailable BLANCA, DARLINE SYSTEM DISPATCHER Caregiver [address] [place] [address] Unavailable SABRINA JACQUI Next Of Kin [address] [facility] [address] [place], [place] [id number] C Insurance Providers Guarantor Luis León Address [address] [facility] [address] [place] [address] CP Email [email or web address] Payer Medicaid Policy Number [id number] Subscriber's Name Luis León Relationship 18 Self Effective Date 16 Expiration Date 16 Payer Medicare Policy Number [id number] Subscriber's Name Luis León Relationship 18 Self Effective Date 14 Advance Directives Directive Response Recorded Date/Time Dr Ordered Resuscitation Status Full Code 01/25/14 4:35pm Problems Active Problems Medical Problem Onset Date Status Bilateral flank pain Unknown Acute Bilateral flank pain Unknown Acute Cramps of right lower extremity Unknown Acute Hyperglycemia without ketosis Unknown Acute Hyperkalemia Unknown Acute Pneumonia Unknown Acute Poorly controlled diabetes mellitus Unknown Acute Renal failure Unknown Acute Vomiting Unknown Acute Medications Current Home Medications Medication Dose Units Route Directions Days Qty Instructions Start Date Amlodipine Besylate 10 Mg Tablet 10 Mg Oral Bedtime 06/28/15 Insulin Aspart (Novolog) 100 Unit/Ml Inj 5-10 Unit Sub-Q Sliding Scale 01/16/15 Insulin Glargine (Lantus) 100 U/Ml Vial 50 U Sub-Q Bedtime Losartan Potassium 100 Mg Tablet 1 Tab Oral Bedtime 90 06/28/15 Lovastatin 10 Mg Tablet 1 Tab Oral Daily 04/30/15 Lurasidone Hcl (Latuda) 120 Mg Tablet 60 Mg Oral Bedtime 01/16/15 Trazodone Hcl (Desyrel) 100 Mg Tablet 200 Mg Oral Bedtime 60 01/25 Past Home Medications Medication Directions Ordered Status Amoxicillin Trihydrate (Amoxicillin) 500 Mg Capsule, 500 Mg Oral Three Times A Day 09/08/11 Discontinued Enalapril Maleate 10 Mg Tablet, 15 Mg Oral Daily 09/08/11 Discontinued Hydrocodone Bit/Acetaminophen (Lortab 7.5) 1 Udtab Tablet, 1 Udtab Oral As Needed 09/08/11 Discontinued Oxycodone Hcl/Acetaminophen (Percocet 7.5/325 Mg) 1 Udtab Tablet, 1 Udtab Oral Every 4-6 Hours 09/08/11 Discontinued Pravastatin Sodium 40 Mg Tablet, 40 Mg Oral Daily 09/08/11 Discontinued Social History Social History Problem Response Recorded Date/Time Onset Date Status Chewing Tobacco Status No 01/25/2014 3:45pm Not Applicable Not Applicable Hx Substance Use No 06/29/2015 9:53am Not Applicable Not Applicable Hx Alcohol Use Y "SOCIALLY EVERY MONTH OR TWO" 06/29/2015 9:53am Not Applicable Not Applicable Has the pt used tobacco in the last 12 months Yes 06/29/2015 9:53am Not Applicable Not Applicable Tobacco Usage none 01/16/2015 6:26am Not Applicable Not Applicable Query Response Start Date Stop Date Smoking Status Light Smoker Hospital Discharge Instructions Current inpatient/outpatient. Discharge instructions are currently unavailable. Plan of Care Current inpatient/outpatient. The plan of care is currently unavailable Functional Status No functional status results. Allergies, Adverse Reactions, Alerts Allergen Type Severity Reaction Status Last Updated Azithromycin Allergy Mild URTICARIA Active 04/29/15 Immunizations Query Response on File Recorded Date/Time Hx Influenza Vaccination Y MAY 2015 06/29/15 9:53am Hx Pneumococcal Vaccination Y 201106/29/15 9:53am Hx Tetanus, Diptheria, Pertussis NO SKIN DISRUPTIONS 01/16/15 6:28am Hx Influenza Vaccination Y MAY 2015 06/29/15 9:53am Hx Tetanus, Diptheria, Pertussis NO SKIN DISRUPTIONS 01/16/15 6:28am Vital Signs No known vital signs results. Results Laboratory Results Test Name Result Units Flags Reference Collection Date/Time Result Date/ Time Comments White Blood Count 6.9 T/MM3 4.5-11.0 03/29/2016 10:39am 03/29/2016 10: 46am Red Blood Count 3.01 M/MM3 L 4.00-5.20 03/29/2016 10:39am 03/29/2016 10: 46am Hemoglobin 10.6 GM/DL L 12-16 03/29/2016 10:39am 03/29/2016 10:46am Hematocrit 32.4 % L 36-46 03/29/2016 10:39am 03/29/2016 10:46am Mean Corpuscular Volume 107.6 UM3 H 80-100 03/29/2016 10:39am 2015 10:46am Mean Corpuscular Hemoglobin 35.2 UUG H 26-34 03/29/2016 10:39am 2015 10:46am Mean Corpuscular Hemoglobin Concent 32.7 GM/DL 31-37 03/29/2016 10:39am 03/29/2016 10:46am RDW Standard Deviation 55.4 FL H 36.9-50.2 03/29/2016 10:39am 2015 10:46am Platelet Count 276 T/MM3 130-400 03/29/2016 10:39am 03/29/2016 10:46am Mean Platelet Volume 9.3 UM3 L 9.4-12.4 03/29/2016 10:39am 03/29/2016 10 :46am Neutrophils (%) (Auto) 66.1 % H 33-66 03/29/2016 10:39am 03/29/2016 10: 46am Lymphocytes (%) (Auto) 24.7 % 23-45 03/29/2016 10:39am 03/29/2016 10: 46am Monocytes (%) (Auto) 5.9 % 0-9.0 03/29/2016 10:39am 03/29/2016 10:46am Eosinophils (%) (Auto) 2.6 % 0-4 03/29/2016 10:39am 03/29/2016 10:46am Basophils (%) (Auto) 0.6 % 0-2 03/29/2016 10:39am 03/29/2016 10:46am Immature Granulocyte % (Auto) 0.1 % 0.0-0.5 03/29/2016 10:39am 2015 10:46am Absolute Neutrophils (auto) 4.6 T/MM3 1.8-7.7 03/29/2016 10:39am 2015 10:46am Absolute Lymphocytes (auto) 1.7 T/MM3 1-4.8 03/29/2016 10:39am 2015 10:46am Absolute Monocytes (auto) 0.4 T/MM3 0-0.8 03/29/2016 10:39am 2015 10:46am Absolute Eosinophils (auto) 0.2 T/MM3 0-0.5 03/29/2016 10:39am 2015 10:46am Absolute Basophils (auto) 0.0 T/MM3 0-0.2 03/29/2016 10:39am 2015 10:46am Absolute Immature Granulocyte (auto 0.01 T/MM3 0.00-0.03 03/29/2016 10: 39am 03/29/2016 10:46am Prothromb Time International Ratio 0.91 L 0.99-1.21 03/29/2016 10:39am 03/29/2016 11:00am THERAPUTIC RANGE=2.00-3.00 FOR ANTI-THROMBOSIS THERAPUTIC RANGE=2.50-3.50 FOR IMPLANTED VALVE Activated Partial Thromboplast Time 39.5 SEC H 24-36 03/29/2016 10:39am 03/29/2016 11:00am Glucose Level 157 MG/DL H 65-110 03/29/2016 10:39am 03/29/2016 11:00am Phosphorus Level 8.3 MG/DL H 2.5-4.5 03/29/2016 10:39am 03/29/2016 11: 00am Cholesterol Level 218 MG/DL H 132-199 03/29/2016 10:37am 04/03/2016 12: 44am Triglycerides Level 186 MG/DL H 35-135 03/29/2016 10:37am 04/03/2016 12: 44am HDL Cholesterol Direct 53 MG/DL 40-60 03/29/2016 10:37am 04/03/2016 12: 44am LDL Cholesterol, Calculated 127.8 66-159 03/29/2016 10:37am 2015 12:44am VLDL Cholesterol 37.2 MG/DL H 0-28 03/29/2016 10:37am 04/03/2016 12: 44am Cholesterol/HDL Ratio 4.1 RATIO H 0-4.0 03/29/2016 10:37am 04/03/2016 12 :44am Lipase 162 U/L 23-300 03/29/2016 10:39am 03/29/2016 11:23am Magnesium Level 2.5 MG/DL H 1.6-2.3 03/29/2016 10:39am 03/29/2016 11: 23am Uric Acid 4.8 MG/DL 2.5-7.5 03/29/2016 10:39am 03/29/2016 11:00am Vitamin B12 Level 560 PG/ML 239-931 03/29/2016 10:39am 03/30/2016 5: 17am Folate 7.8 NG/ML 2.76-20 03/29/2016 10:39am 03/30/2016 5:17am NORMAL ADULT RANGE: 2.76->20 ng/mL Parathyroid Hormone (Intact) 1131.0 PG/ML H 7.5-53.5 03/29/2016 10:39am 03/29/2016 11:35am Hepatitis B Surface Antigen NEGATIVE NEGATIVE 03/29/2016 10:40am 5:17am Hepatitis C Antibody NEGATIVE NEGATIVE 03/29/2016 10:40am 03/30/2016 5:17am Hepatitis B Surface Ab Concentrat POSITIVE NEGATIVE 03/29/2016 10: 40am 03/30/2016 5:17am Hemoglobin A1c 10.0 % H 6.1-7.9 03/29/2016 10:39am 03/29/2016 10:54am < 6.0 NON-DIABETIC RANGE 6.1-7.9 [facility] TARGET RANGE >8.0 ACTION SUGGESTED Urine Collection Type CLEANCATCH-MIDSTREAM 03/29/2016 10:40am 03/29 10:46am Urine Color YELLOW YELLOW 03/29/2016 10:40am 03/29/2016 10:46am Urine Turbidity CLOUDY CLEAR 03/29/2016 10:40am 03/29/2016 10:46am Urine Specific [place] 1.015 1.015-1.025 03/29/2016 10:40am 2015 10:46am Urine pH 7.5 5.0-8.0 03/29/2016 10:40am 03/29/2016 10:46am Urine Leukocyte Esterase NEGATIVE NEGATIVE 03/29/2016 10:40am 2015 10:46am Urine Nitrite NEGATIVE NEGATIVE 03/29/2016 10:40am 03/29/2016 10: 46am Urine Protein 3+ A NEGATIVE 03/29/2016 10:40am 03/29/2016 10:46am Urine Glucose (UA) 1+ A NEGATIVE 03/29/2016 10:40am 03/29/2016 10: 46am Urine Ketones NEGATIVE NEGATIVE 03/29/2016 10:40am 03/29/2016 10: 46am Urine Urobilinogen 0.2 EU/DL NORMAL 03/29/2016 10:40am 03/29/2016 10: 46am Urine Bilirubin NEGATIVE NEGATIVE 03/29/2016 10:40am 03/29/2016 10: 46am Urine Blood 1+ A NEGATIVE 03/29/2016 10:40am 03/29/2016 10:46am Urine WBC NONE SEEN /HPF 0-5 03/29/2016 10:40am 03/29/2016 11:03am Urine RBC NONE SEEN /HPF 0-3 03/29/2016 10:40am 03/29/2016 11:03am Urine Squamous Epithelial Cells >50 03/29/2016 10:40am 03/29/2016 11:03am Urine Bacteria TRACE H NEGATIVE 03/29/2016 10:40am 03/29/2016 11:03am Urine Culture Indicated CULT NOT INDICATED 03/29/2016 10:40am 03/29 11:03am Serum Amylase 84 U/L 25-125 03/29/2016 10:40am 03/29/2016 9:19pm Amylase performed at [facility] Reference Lab, [address] [place] [address] Registered Sales Assistant Bill Deleon DO C-Peptide 9.44 ng/mL H 0.80-3.90 03/29/2016 10:40am 03/30/2016 9:32am C -Peptide performed at [facility] Reference Lab, [address] [place], [place] [id number] Registered Sales Assistant Bill Deleon DO Cytomegalovirus IgG Antibody Positive A Negative 03/29/2016 10:40am 1:49pm Test Performed by: [address] [address] Print Line Operator: Reji Tyson II, M.D., Ph.D. Cytomegalovirus IgG, Serum performed at [facility], [address] [place] [address] Registered Sales Assistant Marbella Champion MD Cytomegalovirus IgM Antibody Negative Negative 03/29/2016 10:40am 2:44pm Test Performed by: [facility] [address] [place] [address] Print Line Operator: Reji Tyson II, M.D., Ph.D. Cytomegalovirus Ab, IgM performed at [facility], [address] [place] [address] Registered Sales Assistant Marbella Champion MD Samina-Burt Virus Capsid Ag IgG Ab Positive A 03/29/2016 10:40am 2:11pm Samina-Burt Capsid Ag IgG Ab Index 5.68 OD Ratio H <0.91 03/29/2016 10: 40am 03/30/2016 2:11pm Samina-Burt Virus Capsid Ag IgM Ab Negative 03/29/2016 10:40am 2:11pm E-B Virus Capsid Ag IgM Ab Index 0.09 OD Ratio <0.91 03/29/2016 10:40am 03/30/2016 2:11pm Samina-Burt Early Antigen IgG Ab Negative 03/29/2016 10:40am 03/30 2:11pm Samina-Burt Early Ag IgG Ab Interp 0.24 OD Ratio <0.91 03/29/2016 10: 40am 03/30/2016 2:11pm Samina-Burt Virus Nuclear Ag Ab Positive A 03/29/2016 10:40am 03/30 2:11pm Samina-Burt Capsid Ag IgG Ab Index 3.38 OD Ratio H <0.91 03/29/2016 10: 40am 03/30/2016 2:11pm Samina-Burt Virus Interpretation - 03/29/2016 10:40am 03/29/2016 8 :11pm . <0.91=Negative . 0.91 - 1.09=Equivocal . >1.09=Positive Samina-Burt Virus Serology performed at [facility] Reference Lab, [address] [place] [address] Registered Sales Assistant Bill Deleon DO Gamma Glutamyl Transpeptidase 76 U/L H 3-36 03/29/2016 10:40am 2015 9:20pm GGT performed at [facility] Reference Lab, [address] [place] [address] Registered Sales Assistant Bill Deleon DO Hepatitis A Antibody Total Negative () 03/29/2016 10:40am 03/30/2016 12:59pm Hepatitis A Antibody Total performed at [facility], [address] [place] [address] Registered Sales Assistant Bill Deleon DO Hepatitis B Core Total Antibody Negative () 03/29/2016 10:40am 2015 9:38pm Hepatitis B Core Ab Total performed at [facility] Reference Lab, [address] [place] [address] Registered Sales Assistant Bill Deleon DO Varicella-Zoster IgG Antibody Positive 03/29/2016 10:40am 2015 2:11pm Varicella-Zoster IgG Ab Index Value 2.69 OD Ratio >1.09 03/29/2016 10: 40am 03/30/2016 2:11pm Varicella Zoster IGG performed at [facility] Reference Lab, [address] [place] [address] Registered Sales Assistant Bill Deleon DO Measles/Mumps/Rubella Immunity - 03/29/2016 10:40am 03/30/2016 2: 12pm . <0.91=Negative . 0.91 - 1.09=Equivocal . >1.09=Positive Positive results suggest response to immunization or prior exposure. Varicella Zoster IGG performed at [facility] Reference Lab, [address] [place] [address] Registered Sales Assistant Bill Deleon DO 25-Hydroxy Vitamin D3 23 ng/mL 03/29/2016 10:40am 04/03/2016 9:39am 25-Hydroxy Vitamin D2 23 ng/mL 03/29/2016 10:40am 04/03/2016 9:39am 25-Hydroxy Vitamin D Total 46 ng/mL 30-74 03/29/2016 10:40am 2015 9:39am The desirable level of 25-Hydroxy Vitamin D Total(D2 + D3) is 30- 74 ng/mL. A level consistently >200 is potentially toxic. Vitamin D, 25-Hydroxy performed at [facility] Reference Lab, [address] [place] [address] Registered Sales Assistant Bill Deleon DO Name: LUIS LEÓN Unit #: [id number] : 1980 Sex: F Admit Date: Loc / Svc: ARYAN Discharge Date: DIAGNOSTIC IMAGING REPORT Report #: [id number] [facility] LATRICE Jacobs INDICATION: ITS.REASON: R05 COUGH for a couple days PROCEDURE: CHEST 2-VIEWS UPRIGHT (PA \\T\\ LAT) Encounter: Initial COMPARISON: March 29, 2016 FINDINGS: The lungs are clear without evidence of focal abnormal airspace opacity. There is no pleural effusion or pneumothorax. The heart size, mediastinal contours and pulmonary vascularity are within normal limits. There is no significant skeletal abnormality. IMPRESSION: No acute cardiopulmonary disease. . Procedures Procedure Status Date Provider(s) ROUTINE VENIPUNCTURE Completed 03/29/16 CHEST X-RAY 2VW FRONTAL&LATL Completed 03/29/16 LIPID PANEL Completed 03/29/16 URINALYSIS AUTO W/SCOPE Completed 03/29/16 ASSAY OF AMYLASE Completed 03/29/16 VITAMIN D 25 HYDROXY Completed 03/29/16 VITAMIN B-12 Completed 03/29/16 ASSAY OF FOLIC ACID SERUM Completed 03/29/16 ASSAY GLUCOSE BLOOD QUANT Completed 03/29/16 ASSAY OF GGT Completed 03/29/16 GLYCOSYLATED HEMOGLOBIN TEST Completed 03/29/16 ASSAY OF LIPASE Completed 03/29/16 ASSAY OF MAGNESIUM Completed 03/29/16 ASSAY OF PARATHORMONE Completed 03/29/16 ASSAY OF PHOSPHORUS Completed 03/29/16 ASSAY OF BLOOD/URIC ACID Completed 03/29/16 ASSAY OF C-PEPTIDE Completed 03/29/16 COMPLETE CBC W/AUTO DIFF WBC Completed 03/29/16 PROTHROMBIN TIME Completed 03/29/16 THROMBOPLASTIN TIME PARTIAL Completed 03/29/16 SYPHILIS TEST NON-TREP QUAL Completed 03/29/16 CMV ANTIBODY Completed 03/29/16 CMV ANTIBODY IGM Completed 03/29/16 SAMINA-BURT ANTIBODY Completed 03/29/16 SAMINA-BURT NUCLEAR ANTIGEN Completed 03/29/16 SAMINA-BURT CAPSID VCA Completed 03/29/16 EHRLICHIA ANTIBODY Completed 03/29/16 HERPES SIMPLEX NAREN ANTBDY Completed 03/29/16 HERPES SIMPLEX TYPE 1 TEST Completed 03/29/16 HERPES SIMPLEX TYPE 2 TEST Completed 03/29/16 HIV-1/HIV-2 1 RESULT ANTBDY Completed 03/29/16 HEP B CORE ANTIBODY TOTAL Completed 03/29/16 HEP B SURFACE ANTIBODY Completed 03/29/16 HEPATITIS A ANTIBODY Completed 03/29/16 VARICELLA-ZOSTER ANTIBODY Completed 03/29/16 HEPATITIS C AB TEST Completed 03/29/16 BLOOD TYPING SEROLOGIC ABO Completed 03/29/16 BLOOD TYPING SEROLOGIC RH(D) Completed 03/29/16 HEPATITIS B SURFACE AG IA Completed 03/29/16 MRI BRAIN STEM W/O DYE Completed 04/24/16 MRI NECK SPINE W/O DYE Completed 04/24/16 Encounters Encounter Location Arrival/Admit Date Discharge/Depart Date Attending Provider Registered [facility] 05/01/16 4:40pm DARLINE RIOS APRN Registered [facility] 04/24/16 7:10am GEOVANNA MACHADO DO Registered Clinic [facility] 03/29/16 9:52am JU CASTILLO MD Discharged Recurring [facility] 03/22/16 3:31pm 05/09/16 11:59pm ELVA THOMPSON MD
--- OUTSIDE RECORDS SUMMARY | 2016-11-11 21:29 | XMS REPORT | Referral Summary ---
Author Author [facility] Organization [facility] Address Unknown Phone Unavailable Care Team Providers Care Receiving Team Member Name Role Phone Jaylyn Young Primary Care Physician [phone] Encounter VC Date(s): 12/05/15 - 12/05/15 [facility] [address] [place] [address] [phone] Discharge Diagnosis: ESRD on dialysis Discharge Diagnosis: Abdominal pain Discharge Diagnosis: Nausea vomiting and diarrhea Discharge Diagnosis: General weakness Discharge Disposition: 01-Home or Self Care Attending Physician: Allan Cevallos MD Admitting Physician: Allan Cevallos MD Vital Signs Most recent to 1 oldest [Reference Range]: Temperature Oral 36.8 degC [35.8-37.3 degC] (12/05/15 9:01 PM) Peripheral Pulse 82 bpm Rate [60-100 bpm] (12/05/15 11:10 PM) Heart Rate Monitored 88 bpm [60-100 bpm] (12/05/15 10:14 PM) Respiratory Rate 18 br/min [14-20 br/min] (12/05/15 11:10 PM) Blood Pressure 105/72 mmHg [90-140/60-90 mmHg] (12/05/15 11:10 PM) Mean Arterial 97 mmHg Pressure, Cuff (12/05/15 10:14 PM) SpO2 98 % (12/05/15 11:10 PM) Problem List Condition Effective Dates Status [...] # 18 g, 2 Refill(s), Pharmacy : [facility] [id number] Start Date: 11/25/14 Status: Ordered amLODIPine 5 [...] breakfast., # 30 tabs, 3 Refill(s), Pharmacy: [facility], 1 tabs Oral Daily,Instr:Take in the morning [...] to 1 oldest [Reference Range]: WBC [4.8-10.8 7.9 10*3/uL 10*3/uL] (12/05/15 9:29 PM) RBC [4.00-5.20] 3.77 *LOW* (12/05/15 9:29 PM) Hgb [12.0-16.0 13.5 gm/dL gm/dL] (12/05/15 9:29 PM) Hct [37.0-47.0 %] 39.6 % (12/05/15 9:29 PM) MCV [82.0-99.0 fL] 105.0 fL *HI* (12/05/15 9:29 PM) MCH [27.0-32.0 pg] 35.8 pg *HI* (12/05/15 9:29 PM) MCHC [32.0-36.0 34.1 gm/dL gm/dL] (12/05/15 9:29 PM) RDW [11.5-14.5 %] 14.3 % (12/05/15 9:29 PM) Platelet [150-400 265 10*3/uL 10*3/uL] (12/05/15 9:29 PM) MPV [9.4-12.4 fL] 10.2 fL (12/05/15 9:29 PM) Immature 0.1 % Granulocytes (12/05/15:29 PM) [0.0-1.0 %] Neutrophils [51-75 75 % %] (12/05/15 9:29 PM) Lymphocytes [20-46 14 % %] *LOW* (12/05/15:29 PM) Monocytes [4-11 %] 7 % (12/05/15 9:29 PM) Eosinophils [0-4 %] 4 % (12/05/15 9:29 PM) Basophils [0-2 %] 0 % (12/05/15 9:29 PM) Neutro Absolute 5.94 10*3 [1.90-7.00 10*3] (12/05/15 9:29 PM) Lymph Absolute 1.12 10*3 [0.80-3.30 10*3] (12/05/15 9:29 PM) [place] Absolute 0.53 10*3 [0.30-1.00 10*3] (12/05/15 9:29 PM) Eos Absolute 0.28 10*3 [0.00-0.50 10*3] (12/05/15 9:29 PM) Baso Absolute 0.02 10*3 [0.00-0.20 10*3] (12/05/15 9:29 PM) Nucleated RBC 0.0 /100 WBC Automated [0 /100 (12/05/15 9:29 PM) WBC] Chemistry Most recent to 1 oldest [Reference Range]: Sodium Lvl [136-144 132 mEq/L mEq/L] *LOW* (12/05/15 9:29 PM) Potassium Lvl 4.1 mEq/L [3.6-5.1 mEq/L] (12/05/15 9:29 PM) Chloride [99-109 92 mEq/L mEq/L] *LOW* (12/05/15 9:29 PM) CO2 [22-32 mEq/L] 28 mEq/L (12/05/15 9:29 PM) AGAP [3-20] 12 (12/05/15 9:29 PM) BUN [4-20 mg/dL] 20 mg/dL (12/05/15 9:29 PM) Glucose Lvl [70-100 265 mg/dL mg/dL] *HI* (12/05/15 9:29 PM) Creatinine Lvl 7.12 mg/dL [0.44-1.03 mg/dL] *HI* (12/05/15 9:29 PM) eGFR [>60] 7 1 *ABN* (12/05/15 9:29 PM) Calcium Lvl 9.3 mg/dL [8.6-10.0 mg/dL] (12/05/15 9:29 PM) Albumin Lvl [3.5-4.8 3.8 gm/dL gm/dL] (12/05/15 9:29 PM) Total Protein 8.0 gm/dL [6.1-7.9 gm/dL] *HI* (12/05/15 9:29 PM) Globulin [1.9-4.3 4.2 gm/dL gm/dL] (12/05/15 9:29 PM) ALT [14-54 U/L] 6 U/L *LOW* (12/05/15 9:29 PM) AST [15-41 U/L] 30 U/L (12/05/15 9:29 PM) Alk Phos [26-104 121 U/L U/L] *HI* (12/05/15 9:29 PM) Bili Total [0.2-1.2 0.7 mg/dL 2 mg/dL] (12/05/15 9:29 PM) Lipase Lvl [8-48 21 U/L U/L] (12/05/15 9:29 PM) 1Result Comment: Multiply eGFR results by 1.21 for race. 2Result Comment: Naproxen, specifically the metabolite O-desmethylnaproxen, may cause spurious elevation in Total Bilirubin levels. Immunizations No data available for this section [...]
--- OUTSIDE RECORDS SUMMARY | 2016-11-11 21:30 | XMS REPORT | Continuity of Care Document ---
Author Author Tono BURTON, Liz [facility] Ambulatory Address [facility] [place] [address] Phone Unavailable Care Team Providers Care Supervisor Hand Workers Name Role Phone [facility], . PP Unavailable Payers Payer name Insurance type Covered republican ID Authorization(s) Unknown Problems Condition Effective Dates (start - stop) Clinical Status Diabetes type 1, uncontrolled - *Chronic Diabetic kidney disease - *Chronic Nephritis NOS in other disease - *Chronic Anemia - *Chronic Dehydration - *Acute Gastroenteritis - *Acute Pneumonia, unsp - *Acute CKD (chronic kidney disease) stage 4, GFR 15-29 ml - *Worse Diabetes Mellitus, Juvenile, Uncontrolled - *Chronic Microscopic hematuria - *Chronic Interstitial cystitis - *Chronic Bladder pain - *Chronic Pelvic pain in female - *Chronic Type 1 diabetes mellitus - *Chronic Pelvic pain in female - *Acute Nausea & vomiting - *Acute Family History Family Member Diagnosis Age At Onset Status Mother (Alive) Schizophrenia (Unknown) Social History Social History Element Description Quantity alcohol beer & wine & l Allergies, Adverse Reactions, Alerts Substance Reaction Severity Status AZITHROMYCIN Unknown Medications Medication Instructions Dosage Effective Dates (start - stop) Status Pristiq 50 mg tablet,extended release take 1 tablet (50MG) by oral route every day 50 MG - Active benzonatate 100 mg capsule take 1 - 2 Capsule (100MG) by oral route 3 times every day 100 MG - Active Cough DM ER 30 mg/5 mL oral suspension,extended release take 0.5 Milliliter by Oral route every day 0 - Active Apidra 100 unit/mL subcutaneous solution inject by subcutaneous route as per insulin sliding scale protocol:10-20 u AC meals - Active Lantus 100 unit/mL subcutaneous solution inject 45 units at bedtime - Active trazodone 50 mg tablet take 0.5 -1 Tablet by oral route every bedtime - Active amoxicillin 500 mg tablet take 1 tablet (500MG) by oral route 3 times every day for 10 days 500 MG - No Longer Active pravastatin 40 mg tablet take 1 tablet (40MG) by oral route every day 40 MG - Active Reglan 10 mg tablet take 1 tablet (10MG) by oral route every 8 hours as needed for naseau 10 MG - Active Immunizations Vaccine Date Status Comments Unknown Results Test Name Date and Time Measure Units Reference Range Abnormal Flag Comments Unknown Vital Signs Date / Time: Height Weight Pulse Rate Blood Pressure Temperature /10:37:00 61.00 in 178.00 lbs 91 /min 110/60 mm[Hg] 100.2 F Procedures Procedure Date Unknown Encounters Encounter Location Date [facility] Patient [facility] OB Patient [id number] OB Patient Visit [facility] Urology Patient Visit [address] Advance Directives Directive Effective Date Unknown
--- OUTSIDE RECORDS SUMMARY | 2016-11-11 21:30 | XMS REPORT ---
Author Jaylyn Persaud eClinicalWorks Address Unknown Phone Unavailable Care Team Providers Care Chimney Repairer Name Role Phone Jaylyn Young CP Unavailable [...] Problem Other specified anemias 285.8 Active Assessment Nausea with vomiting, unspecified R11.2 Active Assessment Generalized abdominal pain R10.84 Active Assessment Diverticulosis of intestine, part unspecified, without perforation or abscess with bleeding K57.91 Active Assessment Diarrhea, unspecified R19.7 Active Problem Mixed hyperlipidemia 272.2 Active Medications Medication Code System Code Instructions Start Date End Date Status Dosage Losartan Potassium [facility] [address]-24 25 MG Orally Once a day hs not defined Pen [place] 1/2" [facility] [address]-27 29G X 12MM subcut with insulin QID Mar 24, 2014 use as directed Furosemide [facility] [address]-90 20 MG Orally Twice a day 1 tablet NovoLog Flexpen [facility] [address]-11 100 UNIT/ML Subcutaneous two to three times a day Mar 16, 2015 5-10 units Zofran ODT [facility] [address]-41 4 MG Orally every 6 hours as needed for nausea Jul 30, 2013 as directed Lantus [facility] [address]-41 100 UNIT/ML Subcutaneous Daily 45 units hs Trazodone HCl [facility] [address]-82 100 Milligram Orally Once a day at bedtime 2 tablets by mouth at bedtime for sleep Latuda [facility] [address]-54 40 MG Orally Once a day after supper and 1/2 tablet extra per day as needed for increased anxiety Sep 22, 2013 1/2 tablet Procedures Procedure Coding System Code Date OFFICE VISIT, EST-LOW COMPLEXITY (15 MIN.) CPT-4 01581 May 27, 2015 [facility] visit Established Patient CPT-4 G0467 May 27, 2015 Vital Signs Date/Time: May 27, 2015 Height 63 in Weight 187.8 lbs Temperature 98.4 F Blood Pressure Diastolic 88 mm Hg Blood Pressure Systolic 150 mm Hg Cardiac Monitoring Heart Rate 81 /min BMI 33.26 Index Respiratory Rate 18 /min Results No Known Results Summary Purpose eClinicalWorks Submission
--- OUTSIDE RECORDS SUMMARY | 2016-11-11 21:30 | XMS REPORT | Referral Summary ---
Author Organization Unknown Address Unknown Phone Unavailable Care Team Providers Care School Cafeteria Cook Head Name Role Phone Jaylyn Young Primary Care Physician [phone] Encounter VC [facility] [id number] Date(s): 11/01/14 - 11/01/14 [facility] [place] [address] Discharge Diagnosis: Acute URI Discharge Diagnosis: Otitis media Discharge Diagnosis: Renal failure Discharge Diagnosis: Conjunctivitis Discharge Disposition: Home or Self Care Attending Physician: Roby Abbasi MD Admitting Physician: Roby Abbasi MD Referring Physician: Jaylyn Young FACULTY MEMBER Vital Signs Most recent to 1 oldest [Reference Range]: Temperature Tympanic 36.6 degC [36.6-38.1 degC] (11/01/14 5:08 PM) Peripheral Pulse 100 bpm Rate [60-100 bpm] (11/01/14 5:08 PM) Blood Pressure 118/70 mmHg [90-140/60-90 mmHg] (11/01/14 5:08 PM) Most recent to 1 oldest [Reference Range]: SpO2 100 % (11/01/14 5:08 PM) Problem List Condition Effective Dates Status Health Status Informant Anemia(Confirmed) Active Asthma(Confirmed) Active Bone 2011 Active infection(Confirmed) Bone 2010 Active infection(Confirmed) Pelvic pain in Active female(Confirmed) Renal Active failure(Confirmed) Tobacco Active patient user(Confirmed) Diabetes mellitus Active type 1 (disorder)(Confirmed ) Allergies, Adverse Reactions, Alerts Substance Reaction Severity Status azithromycin Active erythromycin Urticaria (hives) Active Medications amoxicillin 500 mg oral tablet 1 tabs, Oral, TID, X 10 days, # 30 tabs, 0 Refill(s), Pharmacy: [id number], 1 tabs Oral TID,x10 days Start Date: 11/01/14 Stop Date: 11/11/14 Status: Ordered Apidra 100 units/mL subcutaneous solution See Instructions, [...] 0 Refill(s) Start Date: 03/05/14 Status: Ordered tobramycin 0.3% ophthalmic solution 1 drops, Eye-Both, QID, X 7 days, # 5 mL, 0 Refill(s), Pharmacy: [id number] Start Date: 11/01/14 Stop Date: 11/08/14 Status: Ordered traZODone 50 mg oral tablet [...] Type Response Smoking Status Current some day smoker1 1Every now and then Assessment and Plan Extracted from: Title: Office Visit Note Author: Roby Abbasi MD Date: 11/01/14 Assessment/Plan Acute URI Continue symptomatic treatment as needed Ordered: Office Visit Level 4 Est 06141 Conjunctivitis Tobramycin ophthalmic drops 4 times a day until clear. Ordered: Office Visit Level 4 Est 49162 Otitis media Amoxicillin 500 mg 1 by mouth 3 times a day for 10 days. If her pain doesn't improve, follow up. I did call out Diflucan as well. 4. She often gets yeast infection with antibiotics. Ordered: Office Visit Level 4 Est 10953 Renal failure She'll continue with her regular dialysis. Ordered: Office Visit Level 4 Est 27070 Orders: amoxicillin, 1 tabs, Oral, TID, X 10 days, # 30 tabs, 0 Refill(s), Pharmacy: [id number], 1 tabs Oral TID,x10 days tobramycin ophthalmic, 1 drops, Eye-Both, QID, X 7 days, # 5 mL, 0 Refill(s), Pharmacy: [facility] [id number]
--- OUTSIDE RECORDS SUMMARY | 2016-11-11 21:30 | XMS REPORT ---
Author Author Jaylyn Young [facility] eClinicalWorks Address Unknown Phone Unavailable Care Team Providers Care Charging Operator Name Role Phone Jaylyn Young Unavailable [...] Active Problem Insomnia, unspecified 780.52 Active Medications No Known Medications Results No Known Results Summary Purpose eClinicalWorks Submission
--- OUTSIDE RECORDS SUMMARY | 2016-11-11 21:30 | XMS REPORT | Referral Summary ---
Author Author [facility] Organization [facility] Address Unknown Phone Unavailable Care Team Providers Care Vendor Management Associate Name Role Phone Angel Hdez Primary Care Physician [phone] Encounter VC Date(s): 06/26/16 - 06/26/16 [facility] [address] [place] [address] [facility] [place] [id number] Discharge Diagnosis: Fibromyalgia Discharge Diagnosis: ESRD on dialysis Discharge Diagnosis: Insomnia Discharge Disposition: 01-Home or Self Care Attending Physician: Jil Harding MD Admitting Physician: Jil Harding MD Referring Physician: Terence Hdez DO Vital Signs Most recent to 1 oldest [Reference Range]: Peripheral Pulse 60 bpm Rate [60-100 bpm] (06/26/16 8:30 AM) Blood Pressure 134/60 mmHg [90-140/60-90 mmHg] (06/26/16 8:30 AM) Problem List Condition Effective Dates Status Health Status Informant Acute Active pain(Confirmed) Acute Active sinusitis(Confirmed) Alteration in Active nutrition(Confirmed) 1 Anemia(Confirmed) Active Anxiety(Confirmed) Active patient Asthma(Confirmed) Active Depression(Confirmed Active patient ) Dialysis Active patient patient(Confirmed) Fluid Active imbalance(Confirmed) 2 Impaired gas Active exchange(Confirmed)3 Bone 2011 Active infection(Confirmed) 2010 Active infection(Confirmed) Knowledge Active deficit(Confirmed)4 Pelvic [...] # 18 g, 2 Refill(s), Pharmacy : [facility] Start Date: 11/25/14 Status: Ordered amLODIPine 5 [...]
--- OUTSIDE RECORDS SUMMARY | 2016-11-11 21:30 | XMS REPORT ---
Author Author Jaylyn Young [facility] eClinicalWorks Address Unknown Phone Unavailable Care Team Providers Care Aeronautical Drafter Name Role Phone Jaylyn Young Unavailable Allergies [...]
--- OUTSIDE RECORDS SUMMARY | 2016-11-11 21:30 | XMS REPORT ---
Author Becky Tellez [facility] eClinicalWorks Address Unknown Phone Unavailable Care Team Providers Care Ict Help Desk Officer Name Role Phone Becky Asif CP Unavailable Allergies, Adverse Reactions, Alerts Substance [...] E13.9 Active Problem Mixed hyperlipidemia E78.2 Active Assessment Sore throat J02.9 Active Assessment Acute suppurative otitis media of left ear without spontaneous rupture of tympanic membrane, recurrence not specified H66.002 Active Assessment Chronic kidney disease, stage 4 (severe) N18.4 Active Problem Generalized anxiety disorder 300.02 Active Problem UTI 599.0 Active Problem Mixed hyperlipidemia 272.2 Active Problem Insomnia, unspecified 780.52 Active Problem Major depressive disorder, recurrent episode, moderate 296.32 Active Problem Diabetes Mellitus Type 2, not stated as uncontrolled 250.00 Active Medications Medication Code System Code Instructions Start Date End Date Status Dosage ProAir HFA [facility] [address]-31 108 (90 Base) MCG/ACT Inhalation every 4 hrs Jun 14, 2015 2 puffs as needed Losartan Potassium [facility] [address]-28 25 MG Orally Once a day hs not defined Zofran ODT [facility] [address]-84 4 MG Orally every 6 hours as needed for nausea Jul 30, 2013 1 tab Trazodone HCl [facility] [address]-19 100 MG Orally Once a day at bedtime 2 tablets by mouth at bedtime for sleep Cephalexin [facility] [address]-78 500 MG Orally 3 Times a day Jun 08, 2016 Jun 18, 2016 1 capsule Furosemide [facility] [address]-77 20 MG Orally Twice a day prn 1 tablet Venlafaxine HCl [facility] [address]-92 37.5 MG Orally Twice a day. give after dialysis. May 15, 2016 1 tablet with food Folic Acid [facility] [address]-28 1 MG Orally Once a day Jul 28, 2015 Aug 13, 2016 1 tablet Ropinirole HCl [facility] [address]-06 0.5 MG Orally Once a day October 25, 2015 1 tablet 1 to 3 hours before bedtime Amlodipine Besylate [facility] [address]-16 5 MG Orally Once a day 1 tablet Zofran [facility] [address]-32 4 MG Orally every 6 hours as needed Jun 06, 2016 as directed Pen [place] 1/2" [facility] [address]-61 29G X 12MM subcut with insulin QID Mar 24, 2014 use as directed Lantus [facility] [address]-74 100 UNIT/ML Subcutaneous Daily 26 units hs NovoLog Flexpen [facility] [address]-88 100 UNIT/ML Subcutaneous two to three times a day Mar 16, 2015 5-10 units Procedures Procedure Coding System Code Date OFFICE VISIT, EST-LOW COMPLEXITY (15 MIN.) CPT-4 38581 Jun 08, 2016 [facility] visit Established Patient CPT-4 G0467 Jun 08, 2016 Vital Signs Date/Time: Jun 08, 2016 Temperature 98.3 F Height 63 in Weight 198.4 lbs Blood Pressure Diastolic 72 mm Hg Blood Pressure Systolic 132 mm Hg Cardiac Monitoring Heart Rate 93 /min BMI 35.14 Index Oximetry 97 % Results No Known Results Summary Purpose eClinicalWorks Submission
--- OUTSIDE RECORDS SUMMARY | 2016-11-11 21:30 | XMS REPORT ---
Author Author Jaylyn Young [facility] eClinicalWorks Address Unknown Phone Unavailable Care Team Providers Care Environmental Compliance Manager Name Role Phone Jaylyn Young Unavailable [...]
--- OUTSIDE RECORDS SUMMARY | 2016-11-11 21:30 | XMS REPORT ---
Author Author Jaylyn Young [facility] eClinicalWorks Address Unknown Phone Unavailable Care Team Providers Care Oil Well Cable Tool Operator Name Role Phone Jaylyn Young Unavailable [...] Date End Date Status Dosage Trazodone HCl [facility] [address]-03 100 MG Orally Once a day Jun 08, 2016 2 tablets at bedtime Results No Known Results Summary Purpose eClinicalWorks Submission
--- OUTSIDE RECORDS SUMMARY | 2016-11-11 21:30 | XMS REPORT ---
Author Author Latasha Cook [facility] eClinicalWorks Address Unknown Phone Unavailable Care Team Providers Care Editor Book Name Role Phone Latasha Cook CP Unavailable Allergies No Known Allergies Problems [...] Start Date End Date Status Dosage Lantus [facility] [address]-16 100 UNIT/ML Subcutaneous Daily 26 units hs NovoLog Flexpen [facility] [address]-18 100 UNIT/ML Subcutaneous two to three times a day Mar 16, 2015 5-10 units Ropinirole HCl [facility] [address]-83 0.5 MG Orally Once a day October 25, 2015 1 tablet 1 to 3 hours before bedtime Furosemide [facility] [address]-10 20 MG Orally Twice a day prn 1 tablet Folic Acid [facility] [address]-06 1 MG Orally Once a day Jul 28, 2015 Aug 13, 2016 1 tablet Losartan Potassium [facility] [address]-76 25 MG Orally Once a day hs not defined Trazodone HCl [facility] [address]-07 100 MG Orally Once a day at bedtime 2 tablets by mouth at bedtime for sleep Venlafaxine HCl [facility] [address]-18 37.5 MG Orally Twice a day. give after dialysis. May 15, 2016 1 tablet with food Zofran ODT [facility] [address]-30 4 MG Orally every 6 hours as needed for nausea Jul 30, 2013 1 tab Pen [place] 1/2" [facility] [address]-70 29G X 12MM subcut with insulin QID Mar 24, 2014 use as directed ProAir HFA [facility] [address]-10 108 (90 Base) MCG/ACT Inhalation every 4 hrs Jun 14, 2015 2 puffs as needed Amlodipine Besylate [facility] [address]-61 5 MG Orally Once a day 1 tablet Procedures Procedure Coding System Code Date [facility] CPT-4 30795 Jun 05, 2016 Results No Known Results Summary Purpose eClinicalWorks Submission
--- OUTSIDE RECORDS SUMMARY | 2016-11-11 21:30 | XMS REPORT | Referral Summary ---
Author Author [facility] Organization [facility] Address Unknown Phone Unavailable Care Team Providers Care Ice Resurfacing Machine Operators Name Role Phone Jaylyn Young Primary Care Physician [phone] Encounter VC Date(s): 01/16/15 - 01/16/15 [facility] [address] [place] [address] KQ Final: PAIN IN LIMB Discharge Diagnosis: Bilateral leg pain Discharge Disposition: 01-Home or Self Care Attending Physician: Joel Escobar MD Admitting Physician: Joel Escobar MD Vital Signs Most recent to 1 oldest [Reference Range]: Temperature Oral 36.5 degC [35.8-37.3 degC] (01/16/15 11:37 AM) Peripheral Pulse 91 bpm Rate [60-100 bpm] (01/16/15 3:59 PM) Respiratory Rate 18 br/min [14-20 br/min] (01/16/15 3:59 PM) Blood Pressure 119/77 mmHg [90-140/60-90 mmHg] (01/16/15 3:59 PM) SpO2 98 % (01/16/15 3:59 PM) Problem List Condition Effective Dates Status [...] # 18 g, 2 Refill(s), Pharmacy : [facility] Start Date: 11/25/14 Status: Ordered Epogen 10,000 [...] Refill(s) Start Date: 04/30/15 Status: Ordered Results Chemistry Most recent to 1 oldest [Reference Range]: Sodium Venous 128 mEq/L [136-144 mEq/L] *LOW* (01/16/15 2:39 PM) Potassium Venous 4.5 mEq/L 1 [3.6-5.1 mEq/L] (01/16/15 2:39 PM) Calcium Ionized 1.10 mmol/L Venous [1.19-1.41 *LOW* mmol/L] (01/16/15 2:39 PM) Total CO2 Venous 20 mEq/L [25-29 mEq/L] *LOW* (01/16/15 2:39 PM) HGB Venous NPT 10.9 gm/dL [12.0-16.0 gm/dL] *LOW* (01/16/15 2:39 PM) HCT Venous 32.0 % [37.0-47.0 %] *LOW* (01/16/15 2:39 PM) Glucose Venous 214 mg/dL [70-100 mg/dL] *HI* (01/16/15 2:39 PM) BUN Venous [4-20] 35 *HI* (01/16/15 2:39 PM) Creatinine Venous 8.0 mg/dL [0.4-1.0 mg/dL] *HI* (01/16/15 2:39 PM) Venous CL [99-109 97 mEq/L mEq/L] *LOW* (01/16/15 2:39 PM) Anion Gap, Zain 11 [3-20] (01/16/15 2:39 PM) 1Result Comment: This test was performed on a whole blood specimen. The presence or absence of hemolysis cannot be assessed. Hemolysis can falsely elevate potassium levels. Normals are for venous specimens only. Urinalysis Most recent to 1 oldest [Reference Range]: Type Venous (01/16/15 2:45 PM) Immunizations No data available for this [...]
--- OUTSIDE RECORDS SUMMARY | 2016-11-11 21:30 | XMS REPORT ---
Author Author Nicolasa Mandujano [facility] eClinicalWorks Address Unknown Phone Unavailable Care Team Providers Care Cash Applications Clerk Name Role Phone Nicolasa Mandujano CP Unavailable Allergies No Known Allergies Problems [...]
--- OUTSIDE RECORDS SUMMARY | 2016-11-11 21:30 | XMS REPORT ---
Author Author Jaylyn Young [facility] eClinicalWorks Address Unknown Phone Unavailable Care Team Providers Care Mushroom Grower Name Role Phone Jaylyn Young Unavailable Allergies [...] Date End Date Status Dosage Zofran ODT [facility] [address]-45 4 MG Orally every 6 hours as needed for nausea Jul 30, 2013 as directed Results No Known Results Summary Purpose eClinicalWorks Submission
--- OUTSIDE RECORDS SUMMARY | 2016-11-11 21:30 | XMS REPORT ---
Author Author Jaylyn Young [facility] eClinicalWorks Address Unknown Phone Unavailable Care Team Providers Care Aviation Maintenance Instructor Name Role Phone Jaylyn Young Unavailable Allergies [...]
--- OUTSIDE RECORDS SUMMARY | 2016-11-11 21:30 | XMS REPORT ---
Author Jaylyn Persaud eClinicalWorks Address Unknown Phone Unavailable Care Team Providers Care Flange Machine Operator Name Role Phone Jaylyn Young CP Unavailable [...] Date End Date Status Dosage ProAir HFA [facility] [address]-69 108 (90 Base) MCG/ACT Inhalation every 4 hrs Jun 14, 2015 2 puffs as needed NovoLog Flexpen [facility] [address]-99 100 UNIT/ML Subcutaneous two to three times a day Mar 16, 2015 5-10 units Latuda [facility] [address]-57 40 MG Orally Once a day after supper and 1/2 tablet extra per day as needed for increased anxiety Sep 22, 2013 1/2 tablet Furosemide [facility] [address]-67 20 MG Orally Twice a day 1 tablet Lantus [facility] [address]-36 100 UNIT/ML Subcutaneous Daily 45 units hs Trazodone HCl [facility] [address]-99 100 Milligram Orally Once a day at bedtime 2 tablets by mouth at bedtime for sleep Losartan Potassium [facility] [address]-14 25 MG Orally Once a day hs not defined Pen [place] 1/2" [facility] [address]-08 29G X 12MM subcut with insulin QID Mar 24, 2014 use as directed Zofran ODT [facility] [address]-04 4 MG Orally every 6 hours as needed for nausea Jul 30, 2013 as directed Amlodipine Besylate [facility] [address]-74 5 MG Orally Once a day 1 tablet Procedures Procedure Coding System Code Date OFFICE VISIT, EST-LOW COMPLEXITY (15 MIN.) CPT-4 84463 Jul 01, 2015 [facility] CPT-4 90990 Jul 01, 2015 [facility] visit Established Patient CPT-4 G0467 Jul 01, 2015 Vital Signs Date/Time: Jul 01, 2015 Height 63 in Weight 194.0 lbs Temperature 97.9 F Respiratory Rate 16 /min Cardiac Monitoring Heart Rate 81 /min BMI 34.36 Index Results No Known Results Summary Purpose eClinicalWorks Submission
--- OUTSIDE RECORDS SUMMARY | 2016-11-11 21:30 | XMS REPORT ---
Author Author Jaylyn Young [facility] eClinicalWorks Address Unknown Phone Unavailable Care Team Providers Care Flexboard Operator Name Role Phone Jaylyn Young Unavailable [...] Instructions Start Date End Date Status Dosage Amlodipine Besylate [facility] [address]-44 5 MG Orally Once a day 1 tablet Losartan Potassium [facility] [place] [address]-93 25 MG Orally Once a day hs not defined Trazodone HCl [facility] [place] [place] [address]-21 100 MG Orally Once a day at bedtime 2 tablets by mouth at bedtime for sleep Ropinirole HCl [facility] [place] [address]-84 0.5 MG Orally Once a day October 25, 2015 1 tablet 1 to 3 hours before bedtime Pen [place] 1/2" [facility] [place] [address]-86 29G X 12MM subcut with insulin QID Mar 24, 2014 use as directed Zofran ODT [facility] [place] [address]-57 4 MG Orally every 6 hours as needed for nausea Jul 30, 2013 as directed Lantus [facility] [place] [address]-41 100 UNIT/ML Subcutaneous Daily 36 units hs Folic Acid [facility] [place] [address]-43 1 MG Orally Once a day Jul 28, 2015 Aug 13, 2016 1 tablet NovoLog Flexpen [facility] [address]-46 100 UNIT/ML Subcutaneous two to three times a day Mar 16, 2015 5-10 units ProAir HFA [facility] [place] [address]-32 108 (90 Base) MCG/ACT Inhalation every 4 hrs Jun 14, 2015 2 puffs as needed Furosemide [facility] [place] [address]-09 20 MG Orally Twice a day prn 1 tablet Results No Known Results Summary Purpose eClinicalWorks Submission
--- OUTSIDE RECORDS SUMMARY | 2016-11-11 21:30 | XMS REPORT ---
Author Author Jaylyn Young [facility] eClinicalWorks Address Unknown Phone Unavailable Care Team Providers Care Police Or Patrol Park Officer Name Role Phone Jaylyn Young Unavailable Allergies [...]
--- OUTSIDE RECORDS SUMMARY | 2016-11-11 21:30 | XMS REPORT | Referral Summary ---
Author Organization Unknown Address Unknown Phone Unavailable Care Team Providers Care Online Content Editor Name Role Phone Jaylyn Yonug Primary Care Physician [phone] Encounter VC GEORGIE [id number] Date(s): 11/25/14 - 11/25/14 Via [facility] [address] [place], [place] [address] Discharge Diagnosis: COUGH Discharge Diagnosis: Renal failure Discharge Diagnosis: Diabetes mellitus type 1 (disorder) Discharge Diagnosis: Acute sinusitis Discharge Diagnosis: Pneumonia Discharge Disposition: Home or Self Care Attending Physician: Owen Vogt MD Admitting Physician: Owen Vogt MD Referring Physician: Jaylyn Young MATCHBOOK MAKER Vital Signs Most recent to 1 oldest [Reference Range]: Temperature Tympanic 36.9 degC [36.6-38.1 degC] (11/25/14 5:26 PM) Peripheral Pulse 96 bpm Rate [60-100 bpm] (11/25/14 5:26 PM) Blood Pressure 122/82 mmHg [90-140/60-90 mmHg] (11/25/14 5:26 PM) Most recent to 1 oldest [Reference Range]: SpO2 94 % (11/25/14 5:26 PM) Problem List Condition Effective Dates Status Health Status Informant Acute Active sinusitis(Confirmed) Anemia(Confirmed) Active Asthma(Confirmed) Active Bone 2011 Active infection(Confirmed) Bone 2010 Active infection(Confirmed) Pelvic pain in Active female(Confirmed) Pneumonia(Confirmed) Active Renal Active failure(Confirmed) Tobacco Active patient user(Confirmed) Diabetes mellitus Active type 1 (disorder)(Confirmed ) Allergies, Adverse Reactions, Alerts Substance Reaction Severity Status azithromycin Active erythromycin Urticaria (hives) Active Medications albuterol 2.5 mg/3 mL (0.083%) inhalation solution 3 mL, Inhalation, q6hr (scheduled), # 60 Each, 2 Refill(s), Pharmacy: [id number], 3 mL Inhalation q6hr (scheduled) Start Date: 11/25/14 Status: Ordered albuterol CFC free 90 mcg/inh inhalation aerosol 2 puffs, Inhalation, QID, as needed for wheezing, # 18 g, 2 Refill(s), Pharmacy : [facility] [id number] Start Date: 11/25/14 Status: Ordered cefdinir 300 mg oral capsule 2 caps, Oral, Every other day, # 12 caps, 0 Refill(s), Pharmacy: [facility] [id number], 2 caps Oral Every other day Start Date: 11/25/14 Stop Date: 12/09/14 Status: Ordered furosemide 20 mg oral tablet 1 tabs, Oral, BID, 0 Refill(s) Start Date: 03/05/14 Status: Ordered HumaLOG KwikPen 10 units, SubCutaneous, TIDAC, 0 Refill(s) Start Date: 11/04/14 Status: Ordered irbesartan 75 mg oral tablet [...] then Assessment and Plan Extracted from: Title: Ambulatory Patient Education Author: Owen Vogt MD Date: 11/25 Family Medicine Pneumonia, Adult Pneumonia is an infection of the lungs. CAUSES Pneumonia may be caused by bacteria or a virus. Usually, these infections are caused by breathing infectious particles into the lungs (respiratory tract ). SYMPTOMS Cough. Fever. Chest pain. Increased rate of breathing. Wheezing. Mucus production. DIAGNOSIS If you have the common symptoms of pneumonia, your caregiver will typically confirm the diagnosis with a chest X-ray. The X-ray will show an abnormality in the lung (pulmonary infiltrate ) if you have pneumonia. Other tests of your blood, urine, or sputum may be done to find the specific cause of your pneumonia. Your caregiver may also do tests (blood gases or pulse oximetry) to see how well your lungs are working. TREATMENT Some forms of pneumonia may be spread to other people when you cough or sneeze. You may be asked to wear a mask before and during your exam. Pneumonia that is caused by bacteria is treated with antibiotic medicine. Pneumonia that is caused by the influenza virus may be treated with an antiviral medicine. Most other viral infections must run their course. These infections will not respond to antibiotics. PREVENTION A pneumococcal shot (vaccine ) is available to prevent a common bacterial cause of pneumonia. This is usually suggested for: People over 65 years old. Patients on chemotherapy. People with chronic lung problems, such as bronchitis or emphysema. People with immune system problems. If you are over 65 or have a high risk condition, you may receive the pneumococcal vaccine if you have not received it before. In some countries, a routine influenza vaccine is also recommended. This vaccine can help prevent some cases of pneumonia.You may be offered the influenza vaccine as part of your care. If you smoke, it is time to quit. You may receive instructions on how to stop smoking. Your caregiver can provide medicines and counseling to help you quit. HOME CARE INSTRUCTIONS Cough suppressants may be used if you are losing too much rest. However, coughing protects you by clearing your lungs. You should avoid using cough suppressants if you can. Your caregiver may have prescribed medicine if he or she thinks your pneumonia is caused by a bacteria or influenza. Finish your medicine even if you start to feel better. Your caregiver may also prescribe an expectorant. This loosens the mucus to be coughed up. Only take [id number] or prescription medicines for pain, discomfort, or fever as directed by your caregiver. Do not smoke. Smoking is a common cause of bronchitis and can contribute to pneumonia. If you are a smoker and continue to smoke, your cough may last several weeks after your pneumonia has cleared. A cold steam vaporizer or humidifier in your room or home may help loosen mucus. Coughing is often worse at night. Sleeping in a semi-upright position in a recliner or using a couple pillows under your head will help with this. Get rest as you feel it is needed. Your body will usually let you know when you need to rest. SEEK IMMEDIATE MEDICAL CARE IF: Your illness becomes worse. This is especially true if you are elderly or weakened from any other disease. You cannot control your cough with suppressants and are losing sleep. You begin coughing up blood. You develop pain which is getting worse or is uncontrolled with medicines. You have a fever. Any of the symptoms which initially brought you in for treatment are getting worse rather than better. You develop shortness of breath or chest pain. MAKE SURE YOU: Understand these instructions. Will watch your condition. Will get help right away if you are not doing well or get worse. Document Released: 07/29/2006 Document Revised: 10/20/2012 Document Reviewed: [facility] [place] Patient Information 2014 [employer]. No follow up information was provided. Extracted from: Title: pneumonia Author: Owen Vogt MD Date: 11/25/14 Impression and Plan Diagnosis Acute sinusitis (ICD9 461.8, Discharge, Medical). COUGH (ICD9 786.2, Discharge, Nursing). Diabetes mellitus type 1 (disorder) (ICD9 250.01, Discharge, Medical). Pneumonia (ICD9 486, Discharge, Medical). Renal failure (ICD9 586, Discharge, Medical). Plan: Rocephin 1 gm IM given today. tomorrow, start Cefdinir 600 mg on MWF, after each dialysis session for a total of 2 weeks. Rest and followup as needed. CXR showed apparent pneumonia in the left base., Use Albuterol breathing treatments, or an Albuterol inhaler as needed for wheezing.. Orders Orders (Selected) Outpatient Orders Ordered Office Visit Level 4 Est 75423: Completed cefTRIAXone: 1 g, IntraMuscular, Once Prescriptions Prescribed albuterol 2.5 mg/3 mL (0.083%) inhalation solution: 3 mL, Inhalation, q6hr ( scheduled), 60 Each albuterol CFC free 90 mcg/inh inhalation aerosol: 2 puffs, Inhalation, QID, 18 g , PRN: as needed for wheezing cefdinir 300 mg oral capsule: 2 caps, Oral, Every other day, 12 caps. Dx/Order Association Plan: Diagnosis: Acute sinusitis Comment: Ordered: Office Visit Level 4 Est 41251; 11/25/14 22:35:00 CDT, Pneumonia | Acute sinusitis | COUGH | Diabetes mellitus type 1 (disorder) | Renal failure Diagnosis: COUGH Comment: Ordered: Office Visit Level 4 Est 83635; 11/25/14 22:35:00 CDT, Pneumonia | Acute sinusitis | COUGH | Diabetes mellitus type 1 (disorder) | Renal failure Diagnosis: Diabetes mellitus type 1 (disorder) Comment: Ordered: Office Visit Level 4 Est [id number]; 11/25/14 22:35:00 CDT, Pneumonia | Acute sinusitis | COUGH | Diabetes mellitus type 1 (disorder) | Renal failure Diagnosis: Pneumonia Comment: Ordered: Office Visit Level 4 Est 35568; 11/25/14 22:35:00 CDT, Pneumonia | Acute sinusitis | COUGH | Diabetes mellitus type 1 (disorder) | Renal failure Diagnosis: Renal failure Comment: Ordered: Office Visit Level 4 Est 84854; 11/25/14 22:35:00 CDT, Pneumonia | Acute sinusitis | COUGH | Diabetes mellitus type 1 (disorder) | Renal failure Additional Orders: Comment: Ordered: albuterol 2.5 mg/3 mL (0.083%) inhalation solution,3 mL, Inhalation, q6hr (scheduled), # 60 Each, 2 Refill(s), Pharmacy: [facility] [id number], 3 mL Inhalation q6hr (scheduled) Ordered: albuterol CFC free 90 mcg/inh inhalation aerosol,2 puffs, Inhalation, QID, as needed for wheezing, # 18 g, 2 Refill(s), Pharmacy: [facility] [id number] Ordered: cefdinir 300 mg oral capsule,2 caps, Oral, Every other day , # 12 caps, 0 Refill(s), Pharmacy: [facility] [id number], 2 caps Oral Every other day End of Orders ."
--- NOTE | 2016-11-11 21:37 | NUR ---
PROVIDER Raffaele PINEDA VEST MAKER IN TO SEE PATIENT.
[2016-11-11] MEDS ORDERED: ONDANSETRON ODT 4 MG TAB PO ONE (21:45)
--- OUTSIDE RECORDS SUMMARY | 2016-11-11 21:47 | XMS REPORT | Continuity of Care Document ---
Author Author [facility] Organization [facility] Address Unknown Phone Unavailable Care Team Providers Care Supervisor Steffen House Name Role Phone SURAJ GREER APRN Primary Care Physician [phone] Insurance Providers Payer Name Policy Number Subscriber Name Relationship [facility] [id number] Luis León 18 Self Advance Directives Directive [...] 10/16/13 Active Leuprolide Acetate Unknown Dose SQ [id number] 10/16/13 Active Trazodone Hcl 200 Mg PO [...] F (96.8 - 99.1) Temperature (Calculated Celsius) 36.15408 degrees C (36.0 - 37.3) Temperature Source [...] 2011 1:23pm Send out - Urine Specific [place] October 20, 2013 3:50pm 1.020 - Has [...] 12, 2014 8:06pm LAB TEST FORM REQUEST [id number] - HDL Cholesterol Direct December 13, 2011 [...] IQBAL MD Encounters Encounter Location Date/Time Registered [facility] 01/12/14 1:44pm Registered [facility] 01/07/14 11:17am Registered [facility] 11/25/13 2:32pm
--- OUTSIDE RECORDS SUMMARY | 2016-11-11 21:47 | XMS REPORT | Continuity of Care Document ---
Author Author [facility] Organization [facility] Address Unknown Phone Unavailable Care Team Providers Care Instrument Checker Name Role Phone Jaylyn Young Primary Care Physician [phone] Source Comments Some departments are not documenting in the electronic medical record. If you do not see the information that you expected, contact Release of Information in the Health Information Management department at [phone] for further assistance in locating additional records.[facility] Active Allergies and Adverse Reactions [...]
--- OUTSIDE RECORDS SUMMARY | 2016-11-11 21:48 | XMS REPORT | Continuity of Care Document ---
Author Author [facility] Organization [facility] Address Unknown Phone Unavailable Care Team Providers Care Academic Affairs Specialist Name Role Phone SURAJ GREER APRN Primary Care Physician [phone] Insurance Providers Payer Name Policy Number Subscriber Name Relationship [facility] [id number] Lusi León 18 Self Advance Directives Directive Response [...] F (96.8 - 99.1) Temperature (Calculated Celsius) 36.22107 degrees C (36.0 - 37.3) Pulse Rate [...] 2011 1:23pm Send out - Urine Specific [place] March 29, 2014 12:05am 1.020 - Has [...] 12, 2014 8:06pm LAB TEST FORM REQUEST [id number] - HDL Cholesterol Direct December 13, 2011 [...] Encounters Encounter Location Date/Time Departed Emergency Room [facility] 03/28/14 10:39pm Registered Clinic [facility] 01/12/14 1:44pm Registered Clinic [facility] 01/07/14 11:17am Recent Diagnosis
--- OUTSIDE RECORDS SUMMARY | 2016-11-11 21:49 | XMS REPORT | Continuity of Care Document ---
Author Author [facility] Organization [facility] Address Unknown Phone Unavailable Allergies Active Description [...] Escobar MD 311 DEPRESSIVE DISORDER NEC 12/18/2013 Joel Escobar MD 593.9 RENAL/URETER DISORD NOS 12/18/2013 Joel Escobar MD 617.9 ENDOMETRIOSIS NOS 12/18/2013 Joel Escobar MD 626.7 POSTCOITAL BLEEDING 12/12/2015 E87.70 Fluid overload, unspecified [place] 12/12/2015 J81.0 Acute pulmonary edema [place] 12/12/2015 J96.01 Acute respiratory failure with hypoxia [place] 12/12/2015 J98.11 Atelectasis REEDERAL BARNARD MD Procedures Code [place] [address] Initial hospital care, per day, for the evaluation and management of a patient, which requires these AL REEDER MD 01/10/2016 77355 Subsequent hospital care, per day, for the evaluation and management of a patient, which requires at AL REEDER MD 01/10/2016 14043 Initial hospital care, per day, for the evaluation and management of a patient, which requires these AL REEDER MD 01/17/2016 63311 Subsequent hospital care, per day, for the evaluation and management of a patient, which requires at AL REEDER MD 01/17/2016 Results Test Result Range UR TEST - 05/18/12 04:55 UR TEST NEGATIVE NEGATIVE Encounters ACCT No. Visit Date/Time Discharge Status Pt. Type Provider Facility Loc./Unit Complaint [id number] 05/18/2012 04:03:00 2011 05:25:00 DIS Emergency Amanuel Beth DO [facility] W.EDS
--- OUTSIDE RECORDS SUMMARY | 2016-11-11 21:49 | XMS REPORT ---
Author Author [facility] [place], Via [facility] - Organization Unknown Address Unknown Phone [...] Protein Pos 3+ A (Negative ) Specific [place] 1.016 (1.003-1.030 ) Collection Type: Clean Catch [...] Protein Pos 3+ A (Negative ) Specific [place] 1.031 H (1.003-1.030 ) Collection Type: Catheter Urobilinogen Negative mg/dL (-<1.0 mg/dL) Bacteria Occasional A Crystals Amorphous Epithelial Cells 10-20 /HPF Hyaline Casts 1-3 /LPF (0-3 /LPF) Mucus Present RBC 2-5 /HPF (0-2 /HPF) WBC 0-2 /HPF (0-4 /HPF)
--- NOTE | 2016-11-11 21:50 | ERPDOC ---
Departure Disposition Decision Date: Nov 11, 2016 Disposition Decision Time: 22:14 Disposition: 01 DISCHARGED HOME, SELF-CARE Impression Impression Impression: Primary Impression: UTI (urinary tract infection) Additional Impression: Nausea Condition: Improved Seen By: Mid-level only Referrals: SURAJ GREER APRN (Family) Patient Instructions: Acute Nausea and Vomiting (ED), Urinary Tract Infection in Women (ED) Problems/Meds/Labs Reviewed?: Yes Medications reviewed and manag: Yes Additional Instructions: 1. Take Zofran as prescribed for nausea. 2. Follow up at dialysis tomorrow by telling staff you have been prescribed Levaquin 3. Follow up with Dr. Macias for the irregular menses. Follow up care ordered?: Yes Mental Status: Alert, Oriented Scripts Ondansetron (Zofran Odt) 4 Mg Tab.rapdis 4 MG PO Q6HPRN for NAUSEA, #7 TAB Oral Disintegrating Tablet Prov: ADRIAN PINEDA APRN 11/11/16 Levofloxacin (Levaquin) 250 Mg Tablet 250 MG PO DAILY for 5 Days Prov: ADRIAN PINEDA APRN 11/11/16 HPI - Female General Chief Complaint: Female Urogenital Problems Stated Complaint: PELVIC PAIN,DIARRHEA Time Seen by Provider: 21:40 Source: patient Exam Limitations: no limitations HPI - Female Initial Comments Radha is an obese 36 year old diabetic female who has end stage renal disease and is on dialysis. Does produce urine. Denies dysuria. She had an irregular period starting on 10/15/16, bled for one day and then stopped until and had a "regular period" until 11/01 and then stopped until 11/09 when she passed a small clot and no further bleeding. Complains of a dull ache to lower abdomen and reports history of endometriosis. SAB1. Sexually active. Has a fiance. Does not use control. States felt she could not get and fiance has never had children so he feels he can also not father children. Reports daily nausea and has been taking Zofran orally at home, last dose 1 am this morning. States nausea is persisting however no vomiting. No fevers. Softer bowel movements X 3 today. States pain is worse when she tries to eat. Decreased appetite and decided to come to [facility] to "get checked out." Brings mother with her. Also denies any new medications that could potentially cause nausea. Pain Scale: Now: 8/10 Severity/Quality: dullness Location: suprapubic Radiation: none Activities at Onset: none Sexual [place] History: less than 2 months ago, single partner Modifying Factors: IMPROVES WITH: defecating, WORSE WITH: eating Associated Symptoms: abdominal pain, nausea/vomiting, DENIES: fever/chills, lower back pain Hx of Similar Symptoms: Yes Is Pt now?: No : 1 Para: 0 Number of Living Children: 0 Abortions (Spont. & Elec.): 1 Allergies: Coded Allergies: azithromycin (Verified Allergy, Mild, URTICARIA, 11/11/16) promethazine (Verified Allergy, Unknown, 11/11/16) Past History Past Medical History Metabolic: diabetes, hypercholesterolemia, hypertension Respiratory: pneumonia Female: (1), miscarriage, other, para (0), renal failure Neurological: neuropathy Infectious: other Psychological: depression Surgical History General: gallbladder Cardiac: cardiac cath Joint: foot Family History Family History Comments adopted Vaccines Hx Influenza Vaccination: Yes (MAY 2015) Hx Pneumococcal Vaccination: Yes (2011) Social History Smoking Status: Never smoker Substance Use Type: does not use Alcohol Intake: occasionally Marital Status: In a relationship Sexuality: male partner Current Occupational Status: disabled Review of Systems Constitutional Constitutional: DENIES: fever ENMT Mouth/Throat: sore throat Cardiovascular Cardiac: DENIES: chest pain, dyspnea on exertion GI Upper Abdomen: nausea, DENIES: vomiting Lower Abdomen: diarrhea, pain General: dysuria (c/o in ER with urine specimen) Female: LMP (3/6) : (spontaneous in past), bleeding (irregular), (1), para (0 ) Psychiatric Psychiatric: depression All other Systems All Other Systems: Reviewed and Negative Physical Exam General General Nourishment: appears stated age, no acute distress, obese Vitals and Pain First Documented Vital Signs Date Time Temp Pulse Resp B/P Pulse Ox O2 Delivery O2 Flow Rate FiO2 11/11/16 21:22 98.8 99 16 142/72 95 Room Air Weight: Kilograms: 89.400 Height (feet): 5 Height (inches): 1.00 Triage Pain Scale: Eyes (brief) Eyes Brief: not found: scleral icterus ENMT (brief) ENMT Brief: FOUND: mucosa moist Respiratory (brief) Respiratory: FOUND: clear all [place], equal bilaterally Cardiovascular (brief) Cardiac: FOUND: regular rate, regular rhythm Abdomen (brief) Abdominal Brief: FOUND: bowel normo active x4, soft, NOT FOUND: tender (no reproducible tenderness on examination) Lymphatic (brief) Lymphatic Brief: NOT FOUND: lymphedema Integumentary (brief) Integumentary Brief: FOUND: dry, pink, rash (legs), warm Psychiatric (brief) Psychiatric Brief: FOUND: alert, attentive, normal affect, oriented Differential Diagnoses Considering: UTI Progress Results/Orders Orders Procedure Category Date Status Time Ondansetron Odt PHA 11/11/16 Complete (Zofran Odt) 21:45 LAB 11/11/16 Complete Qualitative, Urine 21:40 UA, LAB 11/11/16 Complete Dip&Micro(Complete) & 21:46 Urine Culture ILENE 11/11/16 In Process 21:57 Lab Results Laboratory Tests Test 11/11/16 21:46 Urine Collection Type Urine Color Yellow Urine Turbidity Cloudy Urine pH 8.5 Urine Specific [place] 1.015 Urine Protein 3+ Urine Glucose (UA) 2+ Urine Ketones Negative Urine Blood 1+ Urine Nitrite Negative Urine Bilirubin Negative Urine Urobilinogen 0.2EU/DL Urine Leukocyte Esterase 2+ Urine RBC 0-1/HPF Urine WBC 20-30/HPF Urine Squamous Epithelial Cells >50 Urine Bacteria 3+ Urine Mucus Present Urine Culture Indicated Cult reflexed &setup Urine Test Negative Medications Current ED Medications Ondansetron HCl (Zofran Odt) 4 mg O ONCE PO Last administered on 11/11/16t 21: 46; Start 11/11/16 at 21:45; Stop 11/11/16 at 21:46; Status DC Progress Progress 2210 - Nausea gone. Feeling better. Discussed lab results and treatment of UTI with low dose Levaquin. Patient states DR Gong has told her she can take any medication, she will let dialysis know tomorrow when she goes in. Also will follow up with dr. Macias for abnormal periods. ADRIAN PINEDA APRN Nov 11, 2016 21:50
[2016-11-11 21:51] LABS: BLOOD, URINE 1+ (NEGATIVE); COLOR,URINE YELLOW (YELLOW); LEUKOCYTE ESTERASE ,URINE 2+ (NEGATIVE); NITRITE,URINE NEGATIVE (NEGATIVE); UROBILINOGEN,URINE 0.2 EU/DL (NORMAL)
[2016-11-11 21:56] LABS: BACTERIA,URINE 3+ (NEGATIVE); SQUAMOUS EPITHELIAL CELL,UR >50; WBC,URINE 20-30 /HPF (0-5)
[2016-11-11 21:57] LABS: MUCUS,URINE PRESENT; RBC,URINE 0-1 /HPF (0-3)
[2016-11-11] MEDS ORDERED: RIZA5TAB15 (22:04)
[2016-11-11] MEDS ORDERED: ROPI0.5T (22:04)
[2016-11-11] MEDS ORDERED: HYDR-3989 (22:04)
[2016-11-11] MEDS ORDERED: AMIT25TA9 (22:04)
[2016-11-11] MEDS ORDERED: CINA30TA (22:04)
--- NOTE | 2016-11-11 22:08 | NUR ---
PROVIDER Raffaele PINEDA WAX BLENDER IN TO SEE PATIENT.
[2016-11-11] MEDS ORDERED: LEVOFLOXACIN 250 MG TABLET PO ONE (22:15)
[2016-11-11] MEDS ORDERED: LEVO250T2 PO (22:19)
[2016-11-11] MEDS ORDERED: ONDA4TAB7 PO (22:19)
[2016-11-11 22:37] VITALS: BP 142/72; PULSE 99; RESP 16; TEMP 98.8; O2SAT 95
== END 2016-11-11 22:37 | disposition home or self-care (01) ==
LOC: ED 21:21
DX: N39.0 Urinary tract infection, site not specified (principal); E11.22 Type 2 diabetes mellitus with diabetic chronic kidney disease; I12.0 Hypertensive chronic kidney disease with stage 5 chronic kidney disease or end stage renal disease; N18.6 End stage renal disease; Z99.2 Dependence on renal dialysis; Z79.4 Long term (current) use of insulin
CPT/HCPCS: 81001; 81025; 87086; 99283; A9270

== ENCOUNTER 2017-01-07 17:40 | Emergency (ER) | payer MEDICARE, MEDICAID ==
[~2017-01-07] VITALS: Ht 157.5 cm; Wt 86.1 kg
[~2017-01-07 17:40] MED LIST changes: +AMIT25TA9; +CINA30TA; +HYDR-3989; +LEVO250T2 PO; -LURA120T PO; +ONDA4TAB7 PO; +RIZA5TAB15; +ROPI0.5T
[2017-01-07 17:43] VITALS: Ht 157.5 cm; Wt 86.1 kg
--- OUTSIDE RECORDS SUMMARY | 2017-01-07 17:44 | XMS REPORT | Continuity of Care Document ---
Author Author [facility] Organization [facility] Address Unknown Phone Unavailable Care Team Providers Care Communications Engineering Technician Name Role Phone Jaylyn Young Primary Care Physician [phone] Source Comments Some departments are not documenting in the electronic medical record. If you do not see the information that you expected, contact Release of Information in the Health Information Management department at [phone] for further assistance in locating additional records.[facility] Active Allergies and Adverse Reactions Allergen Noted Date Severity Reactions Comments Azithromycin 03/26/2016 Low UNKNOWN Current Medications Not on file Active Problems Not on file Most Recent Encounters Date Type Specialty Providers Description 11/23/2016 Documentation Transplant Surgery Betty Bai, RN 11/22/2016 Documentation Transplant Surgery Betty Bai, RN Social History Tobacco Use Types Packs/Day Years [...]
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
--- OUTSIDE RECORDS SUMMARY | 2017-01-07 18:12 | XMS REPORT | Continuity of Care Document ---
Author Author [facility] Organization [facility] Address Unknown Phone Unavailable Care Team Providers Care Support Merchandiser Name Role Phone Jaylyn Young Primary Care Physician [phone] Source Comments Some departments are not documenting in the electronic medical record. If you do not see the information that you expected, contact Release of Information in the Health Information Management department at [phone] for further assistance in locating additional records.[facility] Active Allergies and Adverse Reactions Allergen [...]
[2017-01-07] MEDS ORDERED: ONDANSETRON ODT 4 MG TAB PO ONE (18:15)
[2017-01-07] MEDS ORDERED: HYDROMORPHONE 2mg/ml INJECTION IM ONE (18:15)
--- NOTE | 2017-01-07 18:15 | NUR ---
MED PT GIVEN INSTRUCTION REGARDING ZOFRAN, UNDERSTANDING VERBALIZED.
--- NOTE | 2017-01-07 18:33 | NUR ---
CT PT TO CT VIA [facility]. THIS RN ACCOMPANIES.
--- NOTE | 2017-01-07 18:43 | NUR ---
CT PT RETURNED.
--- NOTE | 2017-01-07 19:25 | NUR ---
IVELISSE SCOTT APRN AT BEDSIDE.
[2017-01-07] MEDS ORDERED: ORPHENADRINE 60mg/2ml INJECTION IM ONE (19:30)
--- NOTE | 2017-01-07 19:40 | NUR ---
RADIOLOGY PT TO XRY VIA [facility].
[2017-01-07] MEDS ORDERED: HYDROCODONE/APAP 5/325 (PrePack) SENT HOME ONE (20:30)
[2017-01-07 20:37] VITALS: BP 135/90; PULSE 76; RESP 16; TEMP 98.6; O2SAT 94
--- NOTE | 2017-01-07 20:37 | NUR ---
DEPART PT AMBULATORY TO LOBBY AT THIS TIME WITH SIGNIFICIANT OTHER.
--- NOTE | 2017-01-08 07:28 | DI ---
Indication: ITS.REASON: Fall, back pain from L 1-5 PROCEDURE: LUMBAR SPINE 2-3 VIEWS: Encounter: Initial Comparison: None Findings: Alignment of the lumbar spine is within normal limits. Bowel gas pattern is nonobstructive and nonspecific. Moderate to large amount of stool in the colon. The vertebral body heights and disk spaces are normal. No significant degenerative changes. Impression: No acute osseous abnormality. .
--- NOTE | 2017-01-08 07:29 | DI ---
Indication: ITS.REASON: Fall, back pain from T 1-12 PROCEDURE: THORACIC SPINE 2 VIEW: Encounter: Initial Comparison: None Findings: Alignment of the thoracic spine is within normal limits. No acute fracture or subluxation. The vertebral body heights and disk spaces are maintained. No significant degenerative changes. Impression: No acute fracture. .
--- NOTE | 2017-01-08 07:32 | DI ---
Indication: ITS.REASON: Fall, neck pain TTP C 1-7 PROCEDURE: CT CERVICAL SPINE W/O CONTRAST: Encounter: Initial Comparison: None Technique: Axial CT images through the cervical spine were performed without contrast. Coronal and sagittal reformatted images were also obtained. Automated Exposure Control and Iterative Reconstruction dose reducing techniques were utilized. FINDINGS: The alignment of the cervical spine is normal. There is no evidence of acute fracture or subluxation of the cervical spine. The facet joints are well aligned with preservation of the intervertebral disk and facet joints. The atlantoaxial articulation, dens, and upper cervical spine demonstrate no subluxation. There is no evidence of significant spinal stenosis, foraminal compromise, or significant disk herniation. Groundglass opacities in the lung apices, nonspecific. IMPRESSION: No acute traumatic abnormality of the cervical spine. There is a preliminary report by virtual radiologic. .
== END 2017-01-07 20:37 | disposition home or self-care (01) ==
LOC: ED 17:40
DX: S29.9XXA Unspecified injury of thorax, initial encounter (principal); S39.92XA Unspecified injury of lower back, initial encounter; S19.9XXA Unspecified injury of neck, initial encounter; W01.0XXA Fall on same level from slipping, tripping and stumbling without subsequent striking against object, initial encounter; Y93.89 Activity, other specified; Y92.000 Kitchen of unspecified non-institutional (private) residence as the place of occurrence of the external cause; Y99.8 Other external cause status
CPT/HCPCS: 72070; 72100; 72125; 96372; 99284; A9270; J1170; J2360